=== PATIENT | female | born 1965 | race Caucasian/White ===

== ENCOUNTER → 2018-02-03 15:27 | Outpatient (CLI) | payer OTHER, SELFPAY ==
[2018-02-03 15:45] LABS: Hematocrit 41.1 % (37-47); Hemoglobin 13.9 g/dl (12.0-15.0); Mean Corp Hgb Conc 33.8 g/gl (32-36); Mean Corpuscular Hgb 29.5 pg (27.0-32.0); Mean Corpuscular Volume 87.3 fL (81-99); Mean Platelet Vol. 9.5 fl (6.2-12.0); Platelet Count 337 K/mm3 (150-450); RBC Distribution Width CV 13.3 % (11.6-14.6); RBC Distribution Width SD 42.5 fl (35.1-43.9); Red Blood Count 4.71 M/mm3 (4.2-5.4); Scan Indicated on CBC? Y/N NO; White Blood Count 6.9 K/mm3 (4.4-11.0)
[2018-02-03 16:10] LABS: ALB/GLOB Ratio 0.9 RATIO (0.9-2.4); AST(SGOT) 21 U/L (15-37); Alanine Aminotransfer ALT/SGPT 41 U/L (13-56); Albumin, Serum 3.7 g/dL (3.2-5.0); Alkaline Phosphatase 176 U/L (45-117); Anion Gap 8 (5-15); BUN 15 mg/dL (7-18); BUN/Creat Ratio 17.6 RATIO (10-20); Calcium,Total 9.2 mg/dL (8.5-10.1); Chloride 103 mmol/L (98-107); Creatinine, Serum 0.85 mg/dL (0.55-1.02); EST Glomerular Filtration Rate 75 mL/min (>60); Est Glom Filt Rate - Afr Amer 91 mL/min (>60); Globulin 3.9 g/dL (2.2-4.2); Glucose 136 mg/dL (74-106); Potassium 3.8 mmol/L (3.5-5.1); Protein, Total 7.6 g/dL (6.4-8.2); Sodium Level 138 mmol/L (136-145)
[2018-02-03 16:16] LABS: Hemoglobin A1c 6.1 % (4.2-6.3)
== END ==
PROVIDERS: Family Provider Internal Medicine; PCP Internal Medicine; Visit Provider Internal Medicine
DX: R73.01 Impaired fasting glucose (principal); Z79.899 Other long term (current) drug therapy
CPT/HCPCS: 80053; 83036; 85027

== ENCOUNTER → 2018-05-13 10:33 | Outpatient (CLI) | payer OTHER, SELFPAY ==
--- NOTE | 2018-05-13 12:15 | BRBX_PTH ---
PATIENT: JERE ELY LOC: [facility] U#:[id number] AGE/SX: 60/F ROOM: RE05/13/[address]: Dr. Sarita Spencer MD : 1965 BED: DIS: SPEC #: [id number] RECD: 05/13/18 13:22 STATUS: STELLA TYE #: [id number] OLI: 05/13/18 12:[address]: Sarita Spencer DEPT: SURGICAL PATHOLOGY RECD BY: Oswaldo Shearer ENTERED: 05/13/18 13:30 SP TYPE: BREAST BX OTHR DR: Dr. Carissa Lr MD Tissues: Left breast, NOS Procedures: Surgery Specimen Level IV HEADER OPERATION: Left stereotactic breast biopsy PRE-OP DIAGNOSIS: Left breast 1 o?clock posterior depth microcalcifications TISSUE SUBMITTED: Left breast core tissue ISCHEMIC TIME: 1 minute FIXATION TIME: 7 hours MICROSCOPIC DIAGNOSIS Left breast, 1 o?clock, posterior depth microcalcifications, stereotactic core biopsy: Fibrocystic changes and intraductal hyperplasia with focal atypia. Microcalcification. Negative for malignancy. YEN:andrews 05/14/18 COMMENT Correlation with clinical, radiologic findings and appropriate follow up are necessary. Case has been reviewed in consultation with Dr. Herrera who concurs with the above diagnosis. IDC:AM MICROSCOPIC DESCRIPTION Slides are reviewed. GROSS DESCRIPTION Received is one container labeled with the patient's name and not further designated. The specimen consists of multiple elongated fragments of maki-yellow fibroadipose tissue that in aggregate measure 2 x 0.5 x 0.3 cm. The entire specimen is submitted in two cassettes. / YEN:andrews 05/13/18 TC:5 [facility]: [id number]
--- NOTE | 2018-05-19 15:41 | PCM.OPRPT ---
Report of Operation Date of Procedure: 05/13/18 Pre-Operative Diagnosis: abnormal calcifications on left breast mammograms Post-Operative Diagnosis: same Surgery/Procedure Performed:: left stereotactic breast biopsy Description of Surgical Findings:: calcifications central upper outer quadrant of left breast Type of Anesthesia:: Local - 1% xylocaine Specimen's removed: left breast tissue Estimated Blood Loss (mL): minimal Fluids Replaced: none Description of Procedure: After informed consent was given, the patient was brought into the breast biopsy suite. Appropriate time out protocol was followed. She was then placed in the prone position on the stereotactic biopsy table. The patients left breast was then placed at the opening at the head of the table. A [place] compression mammogram was then obtained in the lateral view. The suspicious radiological lesion was then identified. Stereo pictures of the lesion were then taken for XYZ coordinates. The Mammotome biopsy stylus was then positioned where it would be entering into the patients breast. The skin at this site was then cleansed with a surgical skin preparation. The skin and subcutaneous tissues at this site were then infiltrated with 1% xylocaine. A small skin incision was made with an 11 blade scalpel. The biopsy stylus was then positioned into the patients breast at the proper coordinates of depth. Using the Mammotome vacuum-assist device, several core samples of breast tissue were obtained. A specimen mammogram was the obtained and revealed that the calcifications were within the specimen. A hemostatic marker clip was then placed into the biopsy cavity and a [place] film revealed that it was properly deployed. The patient was then placed in the supine position and pressure was applied to the breast until no active bleeding was noted. Steristrips were applied to reapproximate the skin. A unilateral mammogram in the CC and MLO view were then taken which revealed that the marker clip was in the same area as the previous suspicious lesion. The patient tolerated the procedure well and was discharged from the breast biopsy suite in good condition. - Complications none noted
== END ==
PROVIDERS: Family Provider Internal Medicine; PCP Internal Medicine; Visit Provider Surgery
DX: N60.92 Unspecified benign mammary dysplasia of left breast (principal); N60.12 Diffuse cystic mastopathy of left breast; M15.9 Polyosteoarthritis, unspecified; J30.9 Allergic rhinitis, unspecified; Z79.51 Long term (current) use of inhaled steroids; Z79.899 Other long term (current) drug therapy
CPT/HCPCS: 19081; 88305; A4648

== ENCOUNTER 2018-06-03 07:15 | Day surgery (SDC) | payer OTHER, SELFPAY ==
[2018-06-03] VITALS (12 sets, daily range): BP systolic 101–163; BP diastolic 61–109; PULSE 74–84; RESP 16–83; TEMP 36.1–36.6; O2SAT 18–96; BMI 49.8
--- NOTE | 2018-06-03 | BREAST_PTH ---
PATIENT: JERE ELY LOC: [facility] U#:[id number] AGE/SX: 53/F ROOM: RE06/03/[address]: Dr. Sarita Spencer MD : 1965 BED: DIS: 06/03/2018 SPEC #: [id number] RECD: 06/03/18 09:31 STATUS: STELLA TYE #: [id number] OLI: 06/03/18 00:[address]: Sarita Spencer DEPT: SURGICAL PATHOLOGY RECD BY: Rachell Ziegler ENTERED: 06/03/18 10:06 SP TYPE: BREAST OTHR DR: Dr. Carissa Lr MD Tissues: Left breast, NOS Procedures: Surgery Specimen Level V HEADER OPERATION: Left breast excisional biopsy via needle localization PRE-OP DIAGNOSIS: Left breast intraductal hyperplasia with atypia TISSUE SUBMITTED: Left breast mass MICROSCOPIC DIAGNOSIS Left breast mass, excisional biopsy via needle localization: Fibrocystic changes and intraductal hyperplasia without atypia. Changes consistent with previous biopsy site. Negative for malignancy. Frequent microcalcifications. SJ:rg 06/08/18 COMMENT Please make reference to previous specimen ([id number]) left breast, 1 o?clock, posterior depth microcalcifications, stereotactic core biopsy with diagnosis of fibrocystic changes and intraductal hyperplasia with focal atypia. Case has been reviewed in consultation with Dr. Herrera who concurs with the above diagnosis. IDC:AM MICROSCOPIC DESCRIPTION Slides are reviewed. GROSS DESCRIPTION Received fresh for OR consultation labeled with the patient's name is a specimen designated left breast mass. The specimen consists of an irregular fragment of maki-yellow wire-guided fibrofatty tissue measuring 8.5 x 5 x 2.9 cm and weighing 33.8 gm. The specimen is differentially inked as follows: anterior ? yellow, posterior ? black, superior ? blue, inferior ? green, lateral ? red and medial ? orange. Serial sections reveal a blood-filled biopsy cavity measuring 2.8 x 1.5 x 1.2 cm. The biopsy cavity is located 2 mm from its closest posterior and inferior margins. This information is conveyed to the surgeon intraoperatively. Lithographic Artist sections are submitted in ten cassettes as follows: 1 & 2 ? perpendicular inked margins, 3-6 ? biopsy cavity and surrounding tissue, 710 - artist's representative sections of breast parenchyma adjacent to and away from biopsy cavity. / AM:andrews 06/04/18 TC:5 CPT: 63822, [id number]
[2018-06-03] MEDS: Bupiv/Epi 0.5% Mpf 30 ML Vial INFILT (09:48)
--- NOTE | 2018-06-03 09:56 | PCM.IMDPSTOP ---
Immediate Post-Op Note Date of Procedure: 06/03/18 Primary Surgeon/Physician: Sarita Spencer validation scientist: NOT,DEFINED Pre-Operative Diagnosis: intraductal hyperplasia with atypia of the left breast Post-Operative Diagnosis: same, no evidence of cancer Surgery/Procedure Performed:: left breast excisional biopsy via wire localization Description of Surgical Findings:: dense hard mass, frozen section - fibrous tissue around biopsy cavity with hematoma Estimated Blood Loss: 30 ml Specimen's removed: left breast tissue Type of Anesthesia:: General ASA Class: ASA3 Severe Disease - Admit VTE Documentation VTE Present on Admission: Yes VTE Mechan Device Prophylaxis: SCD's
--- NOTE | 2018-06-03 09:57 | PCM.DC.BS ---
Discharge Diet: No Restrictions Discharge Activity: Return to Normal Activity, May not drive while taking narcotic pain medications. Lifting Restrictions: no lifting with left arm greater than 20 pounds for two weeks Call your doctor if your incision/area has: Continuous Slow Oozing, Foul Smelling Discharge Call your doctor if you observe: Fever of 101 or Higher Additional Dressing/Incision Instructions:: leave dressing in place. May get wet in shower. Do not soak - no tub baths/swimming Additional Instructions: Ice packs to area as tolerated for comfort wear supportive bra during day Allergies/Adverse Reactions: Allergies latex Allergy (Verified 05/27/18 09:11) Rash naproxen Allergy (Verified 05/27/18 09:11) Chest tightness topiramate [From Topamax] Allergy (Verified 05/27/18 09:11) Hives Medications to take at Discharge Albuterol IH (ProAir) [Proair Hfa (SP)Vent Pts] 2 puff INHALATION Q4H PRN PRN 11/12/14 Montelukast Sodium [Singulair] 10 mg PO DINNER 11/12/14 Sumatriptan Succinate [Imitrex] 25 mg PO .X1 PRN 11/12/14 Acetaminophen/Butalbital/Caffe [Fioricet] 1 - 2 tablet PO Q4H PRN PRN #20 tablet 05/21/17 Cetirizine HCl [Zyrtec] 10 mg PO DAILY 05/21/17 Ondansetron [Zofran Odt] 4 mg PO Q8H PRN PRN #10 tablet 05/21/17 Rizatriptan Benzoate [Maxalt] 10 mg PO Q2H PRN PRN 05/21/17 predniSONE tablet [PredniSONE] 20 mg PO DAILY PRN 05/21/17 Propranolol HCl [Inderal LA] 60 mg PO DAILY 06/11/17 Amitriptyline HCl 75 mg PO DAILY 05/27/18 Tizanidine HCl [Zanaflex] 4 mg PO DAILY 05/27/18 Hydrocodone/Acetaminophen [Durbin 5-325 Tablet] 1 ea PO Q6H PRN PRN 5 Days #15 tab 06/03/18 The following prescriptions were given: Hydrocodone/Acetaminophen [Durbin 5-325 Tablet] 1 ea PO Q6H PRN PRN 5 Days #15 tab PRN Reason: Pain Primary Care Physician: Carissa Lr MD [Primary Care Provider] - Please Follow Up With: Sarita Spencer MD - call When: to be seen in 7-10 days, please call for date and time, thank you
--- NOTE | 2018-06-03 10:01 | OP.PCM_ITS ---
Report of Operation Date of Procedure: 06/03/18 Pre-Operative Diagnosis: intraductal hyperplasia with atypia of the left breast Post-Operative Diagnosis: same, no evidence of cancer Surgery/Procedure Performed:: left breast excisional biopsy via wire localization Description of Surgical Findings:: dense hard mass, frozen section - fibrous tissue around biopsy cavity with hematoma receptionist telephone operator: NOT,DEFINED Type of Anesthesia:: General Anesthesiologist: Manuel Moreno Specimen's removed: left breast tissue Estimated Blood Loss (mL): 30 ml Fluids Replaced: 1600 ml RL Description of Procedure: After informed consent was given, the patient was brought into the Breast Stereotactic Radiology suite and placed in the prone position on the [place] stereotactic table. The patient?s left breast was placed in the opening at the head of the table. A felt hat pouncing operator hand compression mammogram was then obtained in the lateral view. The marker clip that was previously placed was identified. Stereo pictures of the lesion were then taken for XYZ coordinates. The Kopans needle was then positioned where it would be entering into the patient?s breast. The skin at this site was then cleansed with a surgical skin preparation. The skin and subcutaneous tissues at this site were then infiltrated with 1% xylocaine. The Kopans needle was then positioned into the patient?s breast at the proper coordinates of depth. A felt hat pouncing operator hand film was obtained which revealed the wire in proper position. The patient was then placed in the supine position and the wire was taped into place. A unilateral mammogram in the CC and MLO view were then taken for use in the OR. The patient tolerated this portion of the procedure well and was brought to the AC awaiting surgery in the OR. The patient was then brought to the Operating Room and placed on the operating table in the supine position. A wire had already been placed in the stereotactic biopsy room in the radiology department as described above. The left breast with the wire in placed was then prepped with a sterile surgical skin preparation and sterile surgical drapes were placed. The skin and subcutaneous tissues at the site of the breast lesion was then infiltrated with 1% xylocaine with epinephrine. A transverse skin incision was then made in the lower outer quadrant with a 15 blade scalpel and carried down through to the subcutaneous tissues. Hemostasis was controlled with electrocautery. The wire was then palpated out and brought into the wound from outside. The breast tissue surrounding the wire was then carefully palpated out and from the surrounding tissues using electrocautery. The breast tissue, once from the breast, was then forwarded to the radiology department, where a specimen mammogram revealed that the lesion was within the specimen. The breast tissue was then forwarded to pathology for analysis. Pathology revealed no evidence of cancer, there was a biopsy cavity filled with old blood clot. The wound cavity was carefully examined. No further suspicious tissue was palpated or visualized. Hemostasis was carefully controlled with electrocautery. The subdermal tissues were then approximated with vicryl suture. The incision was then reapproximated close using running monocryl suture. Cavilon and steristrips were then placed to reinforce the skin closure. A sterile dressing was then applied. The patient was then brought to the Recovery Room in stable condition. - Complications none noted - Admit VTE Documentation VTE Present on Admission: Yes VTE Mechan Device Prophylaxis: SCD's
[2018-06-03] MEDS: HYDROcodone Bitartrate/Apap 5/325 Tablet PO (12:37)
== END 2018-06-03 13:28 | disposition home or self-care (01) ==
LOC: SDC 07:18 → AC 07:18
PROVIDERS: Family Provider Internal Medicine; PCP Internal Medicine; Visit Provider Surgery
PROC: (CPT 19301; principal; 2018-06-03 08:15)
DX: N60.92 Unspecified benign mammary dysplasia of left breast (principal); N60.12 Diffuse cystic mastopathy of left breast; M15.9 Polyosteoarthritis, unspecified; G43.109 Migraine with aura, not intractable, without status migrainosus; J30.9 Allergic rhinitis, unspecified; K21.9 Gastro-esophageal reflux disease without esophagitis; Z79.899 Other long term (current) drug therapy; Z79.51 Long term (current) use of inhaled steroids; Z79.52 Long term (current) use of systemic steroids
CPT/HCPCS: 00400; 19125; 19281; 76098; 88305; 88307; J7050; J7120; J2405

== ENCOUNTER → 2018-12-24 13:50 | Outpatient (CLI) | payer OTHER, SELFPAY ==
--- NOTE | 2018-12-24 13:54 | US_ITS ---
STUDY: ULTRASOUND BREAST - LEFT REASON FOR EXAM: Female, 53 years old. LT BREAST FOLLOW UP S/P EXCISIONAL BX TECHNIQUE: Axial and longitudinal images of the LEFT breast were performed with a high resolution ultrasound transducer. COMPARISON: None. FINDINGS: LEFT Breast: There is a lesion #1 in the upper inner quadrant. The lesion measures 0.5 x 0.4 x 0.3 cm in size. Clock notation: 10 o'clock position. Distance from nipple: 2 cm. Posterior Enhancement: No. Posterior Shadowing: None. Margins: Sharp and jagged. Echogenicity: Anechoic. Compression effect on Shape: No change. US/Breast Limited Unilateral IMPRESSION: Probably benign lesion. Short-term ultrasound follow-up is recommended. ASSESSMENT CATEGORY: BIRADS Category 3: Probably Benign - Short-Interval Follow-up Suggested. A letter regarding these results will be sent to the patient by the facility within 30 days. Electronically Signed: Yuliana Vargas, at 16:43 EDT Tel , Service support ,
--- NOTE | 2018-12-24 13:54 | BI_ITS ---
MAMMOGRAPHY - UNILATERAL DIAGNOSTIC: LEFT BREAST REASON FOR EXAM: Female, 53 years old. LT DIAGNOSTIC 6 MO F/U POST EXC BX-INTRADUCTAL HYPERPLASIA WITHOUT ATYPIA 06-03-18, LOST 25#, PERTINENT HISTORY: NO FM HX , PREV MAMMS DONE [facility] 03-23-18 W/AV'S LT 04-21-18, LT STEREO BX HERE 05-12-18 TECHNIQUE: Digital unilateral breast ruthann (3D mammographic acquisition) in the CC and MLO projections. 2-D mediolateral oblique (MLO) and craniocaudad (CC) views of both breasts were obtained. CAD: Full Field Digital Mammography with Computer Added Detection was performed. COMPARISON: 05/24/2018 and 12/24/2018. FINDINGS: Breast Composition: The breasts are heterogeneously dense, which may obscure small masses. There are no dominant masses or suspicious calcifications. No other significant abnormalities are identified. BI/DIAG MAMM W/CAD, UNILAT IMPRESSION: Stable unilateral diagnostic mammogram. One year follow-up mammogram recommended. (A) ASSESSMENT CATEGORY: BIRADS Category 2: Benign. A letter regarding these results will be sent to the patient by the facility within 30 days. Approximately 10% of breast cancers are not detected by mammography. A normal mammogram should not delay biopsy of a clinically suspicious abnormality. Electronically Signed: Yuliana Vargas, at 16:39 EDT Tel , Service support ,
== END ==
PROVIDERS: Family Provider Internal Medicine; PCP Internal Medicine; Referring Provider Internal Medicine; Visit Provider Internal Medicine
DX: R92.8 Other abnormal and inconclusive findings on diagnostic imaging of breast (principal)
CPT/HCPCS: 76642; 77061; 77065; G0279

== ENCOUNTER → 2020-03-06 | Outpatient (CLI) | payer OTHER, SELFPAY ==
--- NOTE | 2020-03-06 10:41 | BI_ITS ---
MAMMOGRAPHY - BILATERAL SCREENING REASON FOR EXAM: Female, 54 years old. Routine annual screening examination. PERTINENT HISTORY: Prior left stereotactic and excisional breast biopsy. TECHNIQUE: Digital bilateral breast nathanael (3D mammographic acquisition) in the CC and MLO projections. 2-D mediolateral oblique (MLO) and craniocaudad (CC) views of both breasts were obtained. CAD: Full Field Digital Mammography with Computer Added Detection was performed. COMPARISON: Comparison is made with prior outside examination dated March 23, 2018. FINDINGS: Breast Composition: The breasts are heterogeneously dense, which may obscure small masses. There are no dominant masses or suspicious calcifications. Stable benign-appearing bilateral axillary lymph nodes. No other significant abnormalities are identified. There has been no significant change since the prior study. BI/SCREEN MAMM (CAD) W/NATHANAEL BILAT IMPRESSION: Stable bilateral screening mammogram. Yearly follow-up mammogram recommended. (A) ASSESSMENT CATEGORY: BIRADS Category 2: Benign. A letter regarding these results will be sent to the patient by the facility within 30 days. Approximately 10% of breast cancers are not detected by mammography. A normal mammogram should not delay biopsy of a clinically suspicious abnormality. [id number] Electronically Signed: Taye Umana, at 13:51 EDT , Service support ,
--- OUTSIDE RECORDS SUMMARY | 2020-07-22 06:22 | XMS RPT_ITS | CCD ---
:1965 External Reference #:[id number] Author Organization [facility] Care Team Providers Name Role Phone Maya Lr Primary Care Provider Allergies Reported Allergen Reaction(s) Severity Date of Onset Location Azithromycin Other: See Comments 08-24-2012 - [facility] ([id number]) colesevelstacy Other: See Comments 06-12-2018 - [facility] ([id number]) Environmental [facility] ([id number]) Naproxen 12-22-2008 - [facility] ([id number]) topiramate Rash 06-12-2015 - [facility] ([id number]) Medications Medication Name Sig Date Prescriber Location Albuterol albuterol HFA (PROAIR 03-30-2018 Marisabel ([facility]) [place] [facility] HFA) 90 mcg/actuation Marisabel ([facility]) [place] ([id number]) inhaler Indications: Wheeze , Allergic rhinitis, unspecified seasonality, unspecified trigger Inhale 2 Puffs as instructed every 4 hours as needed for Wheezing/Shortness of Breath. 1 Inhaler 2 03/30/2018 Active Comment: Inhale 2 Puffs as instructed every 4 hours as needed for Wheezing/Shortness of Breath. Amitriptyline amitriptyline (ELAVIL) 75 [facility] Provider C [facility] mg tablet Indications: Provider ([id number]) Migraine with aura and without status migrainosus, not intractable Take 75 mg by mouth daily at bedtime. 0 Active Comment: Take 75 mg by mouth daily at bedtime. Betamethasone betamethasone 02-13-2016 Aidan Lr [facility] dipropionate Aidan Lr ([id number]) (DIPROSONE) 0.05 % cream Indications: Candidal intertrigo Apply 1 application to affected area twice daily. As directed for rash near groin area (avoid right in crease) 30 g 0 02/13/2016 Active Comment: Apply 1 application to affec migel area twice daily. As directed for rash near groin area (avoid right in c rease) Cetirizine cetirizine (ZYRTEC) 10 12-15-2018 Aidan Lopes za [facility] mg tablet Take 1 D [place] ([id number]) tablet by mouth once daily. 0 12/15/2018 Active Comment: Take 1 tablet by mouth once daily. Clobetasol clobetasol (TEMOVATE) 12-15-2018 Aidan Juárez a [facility] 0.05 % ointment Apply Maya [place] (45166 ) selectively to red spots or possible psoriasis plaques on thighs to lower legs twice per day for up to 4 weeks or less as needed until clear and then try to stop or taper off to a bland emollient cream such as CeraVe cream or Cetaphil cream applied twice per day, including to other dry skin ar 15 g 2 12/15/2018 Active Comment: Apply selectively to red spo ts or possible psoriasis plaques on thighs to lower legs twice per day for up to 4 weeks or less as needed until clear and then try to stop or taper of f to a bland emollient cream such as CeraVe cream or Cetaphil cream appl ied twice per day, including to other dry skin ar Clotrimazole clotrimazole (LOTRIMIN, 02-13-2016 Aidan Montiel [facility] CLOTRIM) 1 % cream Aidan Lr ([id number] ) Indications: Candidal intertrigo Apply 1 application to affected area twice daily. To skin folds as needed for rash 30 g 0 02/13/2016 Active Comment: Apply 1 application to affec migel area twice daily. To skin folds as needed for rash Colestipol colestipol (COLESTID) 1 03-01-2019 Aidan Montiel [facility] gram tablet Indications: Aidan Lr ([id number]) Bile salt-induced diarrhea Take 1 tablet by mouth once daily. As directed 90 tablet 3 03/01/2019 Active Comment: Take 1 tablet by mouth once daily. As directed Desoximetasone desoximetasone 12-15-2018 [facility] % cream Aidan Lr ( 70645) Indications: Psoriasis Apply to the worst or most resistant spots of eczematous dermatitis rash selectively on open areas of arms, legs, trunk, and hands//feet bid (twice per day) until clear and then can stop or taper off as able and directed. AVOID face, eyes/eyelids, and deep fold areas. 30 g 3 12/15/2018 Active Comment: Apply to the worst or most r esistant spots of eczematous dermatitis rash selectively on open areas of arms, legs, trunk, and hands//feet bid (twice per day) until clear and then can stop or taper off as able and directed. AVOID face, eyes/eyelids, an d deep fold areas. dupilumab DUPIXENT 300 mg/2 mL 11-21-2019 [facility] Provider [facility] ([id number]) injection eletriptan eletriptan (RELPAX) 40 mg 01-12-[address] [facility] ([id number]) tablet Indications: Migraine with aura and without status migrainosus, not intractable take 1 tablet by oral route; if headache returns, may repeat dose after 2 hours. No more than two doses within a 24-hour period.. 11 01/12/2018 Active eletriptan (RELPAX) 20 mg tablet 12-08-2017 [facility] Provider [facility] ([id number]) Indications: Migraine with aura and without status migrainosus, not intractable take 1 tablet at onset of headache; if headache returns,may repeat dose after 2 hours. No more than 2 doses within a 24 hour period 5 12/08/2017 Active Comment: take 1 tablet at onset of he adache; if headache returns,may repeat dose after 2 hours. No more than 2 doses within a 24 hour period take 1 tablet by oral route; if headache returns, may repeat dose after 2 hours. No more than two dose s within a 24-hour period.. fluticasone fluticasone (FLONASE) 50 11-29-2019 Aidan Lr [facility] mcg/actuation nasal Aidan Lr ([id number]) spray Indications: Allergic rhinitis, unspecified seasonality, unspecified trigger Use 1 [place] in each nostril once daily. Rinse mouth after use. 1 Bottle 2 11/29/2019 Active Comment: Use 1 [place] in each nostril once daily. Rinse mouth after use. guaiFENesin guaiFENesin (MUCINEX) 10-19-2018 Kristan Gray [facility] 600 mg 12 hr tablet Kristan Gray ( [id number]) Indications: Bronchitis Take 2 tablets by mouth twice daily. 60 tablet 0 10/19/2018 Active Comment: Take 2 tablets by mouth twic e daily. hydrOXYzine hydrOXYzine HCl 01-28-2019 Aidan Lr [facility] (ATARAX) 25 mg tablet Aidan Lr ([id number]) Indications: Rash and other nonspecific skin eruption 1 tablet every 6 hours as needed, but may take 2 tablets at bedtime 50 tablet 0 01/28/2019 Active Comment: 1 tablet every 6 hours as ne eded, but may take 2 tablets at bedtime Magnesium Oxide magnesium oxide 01-06-2018 [facility] Provider [facility]cf [facility] (MAG-OX) 400 mg tablet Provider ([id number]) Indications: Migraine with aura and without status migrainosus, not intractable Take 1 tablet by mouth once daily. 11 01/06/2018 Active Comment: Take 1 tablet by mouth once daily. montelukast montelukast (SINGULAIR) 02-13-2020 Marisabel (Customer Engineer) Iqra kaur [facility] 10 mg tablet Take 1 Marisabel (Customer Engineer) [place] ([id number]) tablet by mouth daily at bedtime. 90 tablet 3 02/13/2020 Active Comment: Take 1 tablet by mouth daily at bedtime. Naphazoline / naphazoline-pheniramine eye [facility] Provider [facility] Pheniramine drops (VISINE-A) 0.025-0.3 % Provider ([id number]) ophthalmic solution 1 Drop every 4 hours as needed. 0 Active Comment: 1 Drop every 4 hours as need ed. Omeprazole omeprazole (PRILOSEC) 20 08-15-2016 [facility] mg capsule Indications: Aidan Lr ( 10572) Gastroesophageal reflux disease, esophagitis presence not specified Take 1 capsule by mouth daily before breakfast. 1/2 hr before meal. 30 capsule 1 08/15/2016 Active Comment: Take 1 capsule by mouth willian y before breakfast. 1/2 hr before meal. Ondansetron ondansetron orally 05-25-2017 Marisabel (Customer Engineer) [facility] disintegrating (ZOFRAN [place] Marisabel ([id number]) ODT) 4 mg disintegrating (Customer Engineer) [place] tablet Take 1 tablet by mouth every 8 hours as needed. 12 tablet 0 05/25/2017 Active Comment: Take 1 tablet by mouth every 8 hours as needed. Promethazine promethazine 01-12-[address] [facility] (PHENERGAN) 12.5 mg Provider ([id number]) tablet Indications: Migraine with aura and without status migrainosus, not intractable take 1-2 tablet by oral route twice daily as needed. 5 01/12/2018 Active Comment: take 1-[address] e twice daily as needed. Propranolol propranolol ER (INDERAL 01-06-2018 [facility] Provider [facility]cf [facility] [place]) 80 mg 24 hr capsule Provider ([id number]) Indications: Migraine with aura and without status migrainosus, not intractable take 1 capsule by oral route every day 11 01/06/2018 Active Comment: take 1 capsule by oral route every day rizatriptan rizatriptan (MAXALT) 10 12-15-2018 Aidan D Adeline C [facility] mg tablet Take 0.5-1 Aidan Maya Lr (441 [id number]) tablets by mouth as needed. Take at onset of migraine; repeat after 2 hours prn 6 tablet 2 12/15/2018 Active Comment: Take 0.5-1 tablets by mouth as needed. Take at onset of migraine; repeat after 2 hours prn tiZANidine tiZANidine HCl 2 mg capsule [facility] Provider [facility]cf [facility] Indications: Migraine with Provider ( [id number]) aura and without status migrainosus, not intractable Take 2 mg by mouth as needed. 0 Active Comment: Take 2 mg by mouth as needed . Problems Active Problems Category Problem Name Status Date Location Headache; including Migraine with aura Active 01-28-2010 - [facility] migraine (52206) Other nutritional; Morbid obesity Active 02-06-2013 - [facility] endocrine; and metabolic (44 195) disorders Other upper respiratory Allergic rhinitis Active [facility] disease (87422) Prolapse of female Midline cystocele Active 02-24-2012 - [facility] genital organs (94254) Past or Other Problems Category Problem Name Status Date Location Abdominal pain Abdominal pain Completed 11-11-2007 - [facility]inic (89885) Allergic reactions Vesicular eczema Completed 04-22-2011 - [facility] (09301) Other connective tissue Plantar fascial Completed 10-27-2008 - [facility] disease fibromatosis (57539) Other connective tissue Calcaneal spur Completed 08-24-2008 - [facility] disease (13219) Other gastrointestinal Non-infective Completed 02-11-2018 - [facility] disorders diarrhea (52594) Other inflammatory Itching of skin Completed 04-22-2011 - [facility] condition of skin (56560) Other injuries and Excoriation of skin Completed 04-22-2011 - [facility] conditions due to (67823) external causes Other skin disorders Fissure in skin Completed 04-22-2011 - [facility] (22497) Skin and subcutaneous Pyoderma Completed 04-22-2011 - [facility] tissue infections (83676) Sprains and strains Sprain of cruciate Completed 09-02-2005 [facility] ligament of knee (83509) Results Result Name Value Range Unit Interpretation Flag Date Location obsolete on 2020-02 OBSOLETE Refill (MIQ) Normal 02-13-2020 [facility] DULCE MARIA ALVAREZ ([id number]) 1965 [facility] Time Provider Department ([id number]) 02/13/20 AID[facility] LR MIQ During your visit today, we recorded the following informati on about you: Melody Linares Pss 02/13/2020 9:56 AM Signed Patient has been identified by name and date of : Yes Pending Prescriptions Disp Refills MONTELUKAST 10 MG TABLET 90 tablet 3 Sig: Take 1 tablet by mouth daily at bedtime. OSKAR: No RX INSTRUCTIONS: Patient aware RX escripted to mail away pharmacy. No n eed to notify patient. Melody Hadley LPN 02/13/2020 10:03 AM Signed Patient has been identified by name and date of : Yes Patient phones for refill(s): Pending Prescriptions Disp Refills MONTELUKAST 10 MG TABLET 90 tablet 3 Sig: Take 1 tablet by mouth daily at bedtime. OSKAR: No Date of last office visit in primary care: 11/29/2019 6 month follow-up scheduled: 05/29/2020 Last 2 Encounter Wt Readings: Date: Wt: 11/29/2019 138.3 kg (305 lb) 06/28/2019 134.3 kg (296 lb) Previous labs/tests for medication: Not applicable Please advise. Thank you. 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) ZPAK (AZITHROMYCIN) 08/24/2012 14 - Other: See Comments Comments: Not effective per pt Date Reviewed: 11/29/2019 Reviewed by: Francine North LPN - Fully Assessed Reason for Visit: Refill Request [94] Order(s):montelukast (SINGULAIR) 10 mg tabletTake 1 ta blet by mouth daily at bedtime.Disp: 90 tabletRfl: 3 Prescriptions as of 02/13/2020 Sig: MONTELUKAST 10 MG TABLET Take 1 tablet by mouth daily * DUPIXENT 300 MG/2 ML SUBCUTAN* FLUTICASONE PROPIONATE 50 MCG* Use 1 [place] in each nostril o * COLESTIPOL 1 GRAM TABLET Take 1 tablet by mouth once d* HYDROXYZINE HCL 25 MG TABLET 1 tablet every 6 hours as nee* DESOXIMETASONE 0.25 % TOPICAL* Apply to the worst or most re * CLOBETASOL 0.05 % TOPICAL OIN* Apply selectively to red spot * RIZATRIPTAN 10 MG TABLET Take 0.5-1 tablets by mouth a* CETIRIZINE 10 MG TABLET Take 1 tablet by mouth once d* GUAIFENESIN ER 600 MG TABLET,* Take 2 tablets by mouth twice * ALBUTEROL SULFATE HFA 90 MCG/* Inhale 2 Puffs as instructed * AMITRIPTYLINE 75 MG TABLET Take 75 mg by mouth daily at * TIZANIDINE 2 MG CAPSULE Take 2 mg by mouth as needed. PROPRANOLOL ER 80 MG CAPSULE,* take 1 capsule by oral route * MAGNESIUM OXIDE 400 MG (241.3* Take 1 tablet by mouth once d * ELETRIPTAN 20 MG TABLET take 1 tablet at onset of hea* ELETRIPTAN 40 MG TABLET take 1 tablet by oral route; * PROMETHAZINE 12.5 MG TABLET take 1-2 tablet by oral route* ONDANSETRON 4 MG DISINTEGRATI* Take 1 tablet by mouth every * NAPHAZOLINE 0.025 %-PHENIRAMI* 1 Drop every 4 hours as neede * OMEPRAZOLE 20 MG CAPSULE,FARRUKH* Take 1 capsule by mouth daily * CLOTRIMAZOLE 1 % TOPICAL CREAM Apply 1 application to affect * BETAMETHASONE DIPROPIONATE 0.* Apply 1 application to affect * Problem List As Of Date 02/13/2020 Noted Resolved SPRAIN CRUCIATE LIG KNEE [S83.509A] 09/02/2005 Allergic rhinitis [J30.9] ABDOMINAL PAIN OTHER SPEC SITE [R10.9] 11/11/2007 CALCANEAL SPUR [M77.30] 08/24/2008 PLANTAR Fasciitis, right [M72.2] 10/27/2008 Migraine with Aura [G43.109] 01/28/2010 Pompholyx eczema [L30.1] 04/22/2011 Hand dermatitis [L30.9] 04/22/2011 Pyoderma, unspecified [L08.0] 04/22/2011 Pruritus [L29.9] 04/22/2011 Excoriation [T14.8XXA] 04/22/2011 Cracking skin [L98.9] 04/22/2011 Contact dermatitis and other eczema, due to uns*04/22/2011 Cystocele, midline [N81.11] 02/24/2012 Morbid obesity due to excess calories (HCC)--BM*02/06/2013 Bile salt-induced diarrhea [K90.89] 02/11/2018 Prescriptions ordered this encounter Disp Refills Start End MONTELUKAST 10 MG TABLET 90 t* 3 02/13/2020 Route: ORAL Sig: Take 1 tablet by mouth daily at bedtime. Medications Discontinued During This Encounter montelukast (SINGULAIR) 10 mg tablet 90 t* 3 03/01/20192019 Route: ORAL Sig: Take 1 tablet by mouth daily at bedtime. Disc: Reason for discontinue is not on file. Encounter Status:Closed by MARISABEL GLORIA on 02/13/20 cnpn on 2019-12-22 CNPN Telephone (INTMWS) Normal 12-22-2019 [facility] DULCE MARIA Tavera ([id number]) 1965 [facility] Date Time Provider Department ([id number]) 12/22/19 10:20 AM MARISABEL ROBLES (CHANDU) INTMWS During your visit today, we recorded the following informati on about you: Marisabel Robles APRN.CHANDU 12/22/2019 11:08 AM Signed This Team Access Model visit is a phone encounter. It requir ed patient-provider interaction for the medical decision making as documented below. This patient encounter invol michael the screening or treatment of novel coronavirus infection (COVID-19). S: Dulce Maria Alvarez is a 54 year old female who presents today with sinus draiange, sinus pressure. She notes symptoms consistent with sinusitis, last experienc ed April 2019. For last few days she reports: Sinus pressure Bridge of nose, left eye - maxillary headache, dull mild no fever no ear pain, left ear fullness no sore throat. does have allergies, using all usual medications No color to sinus drainage color, does have PND. No sore throat OTC allergy injections 2 x per week, singular, flonase, cold an sinus Review of Systems: GENERAL: No weight loss, malaise or fever s. HEENT: see HPI RESPIRATORY: Negative for cough, hemoptysis, wheezing, COPD, dyspnea or shortness of breath The remainder of the review of systems is negative. O: GENERAL: This is a well sounding fema le, no coughing or shortness of breath noted on phone call. VITALS: LMP 11/01/2015 ALLERGIES Allergen Reactions - Environmental [Othe* nasal congestion, throat infections - Naprosyn [Naproxen] Chest pain - Topamax [Topiramate] Rash Possible allergic rash after on drug for a long period of ti me - Welchol [Colesevela* Other: See Comments dizziness and psoriasis (though did help with postcholecys tectomy syndrome) - Zpak [Azithromycin] Other: See Comments Not effective per pt Current Outpatient Medications Medication Sig - amoxicillin-clavulanic acid (AUGMENTIN) 875-12 5 mg per tablet Take 1 tablet by mouth twice daily for 7 days. take with food. - DUPIXENT 300 mg/2 mL injection - fluticasone (FLONASE) 50 mcg/actuation nasal spray Use 1 [place] in each nostril once daily. Rinse mouth after use. - montelukast (SINGULAIR) 10 mg tablet Take 1 tablet by mouth daily at bedtime. - colestipol (COLESTID) 1 gram tablet Take 1 tablet by yeni th once daily. As directed - hydrOXYzine HCl (ATARAX) 25 mg tablet 1 tablet every 6 hours as needed, but may take 2 tablets at bedtime - desoximetasone (TOPICORT) 0.25 % cream Apply t o the worst or most resistant spots of eczematous dermatitis rash selectively on ope n areas of arms, legs, trunk, and hands//feet bid (twice per day) until clear and then can stop or taper off as able and directed. AVOID face, eyes/eyelids, and deep fold areas. - clobetasol (TEMOVATE) 0.05 % ointment Apply selectively to red spots or possible psoriasis plaques on thighs to lower legs twi ce per day for up to 4 weeks or less as needed until clear and then try to stop or taper off to a bland emollient cream such as CeraVe cre am or Cetaphil cream applied twice per day, including to other dry skin ar - rizatriptan (MAXALT) 10 mg tablet Take 0.5-1 tablets by mouth as needed. Take at onset of migraine; repeat after 2 hours prn - cetirizine (ZYRTEC) 10 mg tablet Take 1 tablet by mouth on ce daily. - guaiFENesin (MUCINEX) 600 mg 12 hr tablet Take 2 tablets b y mouth twice daily. - albuterol HFA (PROAIR HFA) 90 mcg/actuation inhaler Inhale 2 Puffs as instructed every 4 hours as needed for Wheezing/Shortness of Breath. - amitriptyline (ELAVIL) 75 mg tablet Take 75 mg by mouth daily at bedtime. - tiZANidine HCl 2 mg capsule Take 2 mg by mouth as needed. - propranolol ER (INDERAL [place]) 80 mg 24 h r capsule take 1 capsule by oral route every day - magnesium oxide (MAG-OX) 400 mg tablet Take 1 tablet by mouth once daily. - eletriptan (RELPAX) 20 mg tablet take 1 tablet at onset of headache; if headache returns,may repeat dose after 2 hours. No more than 2 doses within a 24 hour period - eletriptan (RELPAX) 40 mg tablet take 1 tablet by oral r oute; if headache returns, may repeat dose aft er 2 hours. No more than two doses within a 24-hour period.. - promethazine (PHENERGAN) 12.5 mg tablet take 1 -2 tablet by oral route twice daily as needed. - ondansetron orally disintegrating (ZOFRAN ODT) 4 mg disi ntegrating tablet Take 1 tablet by mouth every 8 hours as needed. - naphazoline-pheniramine eye drops (VIS INE-A) 0.025-0.3 % ophthalmic solution 1 Drop every 4 hours as needed. - omeprazole (PRILOSEC) 20 mg capsule Take 1 capsule by mout h daily before breakfast. 1/2 hr before meal. - clotrimazole (LOTRIMIN, CLOTRIM) 1 % cream Apply 1 a pplication to affected area twice daily. To skin folds as needed for rash - betamethasone dipropionate (DIPROSONE) 0.05 % cream Apply 1 application to affected area twice daily. A s directed for rash near groin area (avoid right in crease) No current facility-administered medications for this visit. PAST MEDICAL HISTORY Diagnosis Date - Allergic rhinitis, cause unspecified - Cystocele, midline - Diverticulitis - Generalized osteoarthrosis, unspecified site - Migraine with Aura 01/28/2010 - Pain in thoracic spine - Plantar fascial fibromatosis A: Awake and Alert. Medical Screening Complete, no apparent respriatory distress. P: In my assessment there is no Emergency Medical Conditio n identified that needs immediate stabilization. no need for proceed to off-si te testing. ASSESSMENT/PLAN: 1. Acute non-recurrent maxillary sinusitis - ICD9: 461.0, IC D10: J01.00 - Will begin treatment with as per antibiotic as written, se e orders - Supportive care with plenty of fluids, rest, and analgesia prn. - Follow up i if symptoms persist or worsen. 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 take with food.Disp: 14 tabletRfl: 0 Prescriptions as of 12/22/2019 Sig: AMOXICILLIN 875 MG-POTASSIUM * Take 1 tablet by mouth twice * DUPIXENT 300 MG/2 ML SUBCUTAN* FLUTICASONE PROPIONATE 50 MCG* Use 1 [place] in each nostril o * MONTELUKAST 10 MG TABLET Take 1 tablet by mouth daily * COLESTIPOL 1 GRAM TABLET Take 1 tablet by mouth once d* HYDROXYZINE HCL 25 MG TABLET 1 tablet every 6 hours as nee* DESOXIMETASONE 0.25 % TOPICAL* Apply to the worst or most re * CLOBETASOL 0.05 % TOPICAL OIN* Apply selectively to red spot * RIZATRIPTAN 10 MG TABLET Take 0.5-1 tablets by mouth a* CETIRIZINE 10 MG TABLET Take 1 tablet by mouth once d* GUAIFENESIN ER 600 MG TABLET,* Take 2 tablets by mouth twice * ALBUTEROL SULFATE HFA 90 MCG/* Inhale 2 Puffs as instructed * AMITRIPTYLINE 75 MG TABLET Take 75 mg by mouth daily at * TIZANIDINE 2 MG CAPSULE Take 2 mg by mouth as needed. PROPRANOLOL ER 80 MG CAPSULE,* take 1 capsule by oral route * MAGNESIUM OXIDE 400 MG (241.3* Take 1 tablet by mouth once d * ELETRIPTAN 20 MG TABLET take 1 tablet at onset of hea* ELETRIPTAN 40 MG TABLET take 1 tablet by oral route; * PROMETHAZINE 12.5 MG TABLET take 1-2 tablet by oral route* ONDANSETRON 4 MG DISINTEGRATI* Take 1 tablet by mouth every * NAPHAZOLINE 0.025 %-PHENIRAMI* 1 Drop every 4 hours as neede * OMEPRAZOLE 20 MG CAPSULE,FARRUKH* Take 1 capsule by mouth daily * CLOTRIMAZOLE 1 % TOPICAL CREAM Apply 1 application to affect * BETAMETHASONE DIPROPIONATE 0.* Apply 1 application to affect * Problem List As Of Date 12/22/2019 Noted Resolved SPRAIN CRUCIATE LIG KNEE [S83.509A] 09/02/2005 Allergic rhinitis [J30.9] ABDOMINAL PAIN OTHER SPEC SITE [R10.9] 11/11/2007 CALCANEAL SPUR [M77.30] 08/24/2008 PLANTAR Fasciitis, right [M72.2] 10/27/2008 Migraine with Aura [G43.109] 01/28/2010 Pompholyx eczema [L30.1] 04/22/2011 Hand dermatitis [L30.9] 04/22/2011 Pyoderma, unspecified [L08.0] 04/22/2011 Pruritus [L29.9] 04/22/2011 Excoriation [T14.8XXA] 04/22/2011 Cracking skin [L98.9] 04/22/2011 Contact dermatitis and other eczema, due to uns*04/22/2011 Cystocele, midline [N81.11] 02/24/2012 Morbid obesity due to excess calories (HCC)--BM*02/06/2013 Bile salt-induced diarrhea [K90.89] 02/11/2018 Prescriptions ordered this encounter Disp Refills Start End AMOXICILLIN 875 MG-POTASSIUM CLAVULA* 14 t* 0 12/22/2019 Route: ORAL Sig: Take 1 tablet by mouth twice daily for 7 days. take wit h food. Encounter Status:Closed by MARISABEL GLORIA on 12/22/19 progress on 2019-11 PROGRESS HNO ID: [id number] Normal 11-29-2019 [facility] Author: Aidan Lr [place] ([id number]) Service: ? Author Type: Physician Type: Progress Notes Filed: 01/01/2020 4:45 PM Note Text: This note was created using Lendariter. Subjective Dulce Maria Alvarez is a 54 year old female. Patient presents with: Follow Up SUBJECTIVE: Dulce Maria Alvarez is a 54 year old year old lady here today for follow up appointment for review of medical conditions. Doing well. No migraines for 4 months now. Titrating down to 50 mg per neurologist. Dupixent cleared up her hands--just small patch on one knuck le on right hand. trillium [place]. PAST MEDICAL HISTORY Diagnosis Date - Allergic rhinitis, cause unspecified - Cystocele, midline - Diverticulitis - Generalized osteoarthrosis, unspecified site - Migraine with Aura 01/28/2010 - Pain in thoracic spine - Plantar fascial fibromatosis Current Outpatient Medications Medication Sig - montelukast (SINGULAIR) 10 mg tablet Take 1 tablet by mout h daily at bedtime. - colestipol (COLESTID) 1 gram tablet Take 1 tablet by mouth once daily. As directed - hydrOXYzine HCl (ATARAX) 25 mg tablet 1 tablet every 6 sarah rs as needed, but may take 2 tablets at bedtime - desoximetasone (TOPICORT) 0.25 % cream Apply to the worst or most resistant spots of eczematous dermatitis rash selectively on open areas of arms, legs, trunk, and hands//feet bid (twice per day) until clear and then can stop or taper off as able and directed. AVOID face, eyes/eyelids, and deep fold areas. - clobetasol (TEMOVATE) 0.05 % ointment Apply selectively to red spots or possible psoriasis plaques on thighs to lower legs twice per day for up to 4 weeks or less as needed until clear and then try to stop o r taper off to a bland emollient cream such as CeraVe cream or Cetaphil cre am applied twice per day, including to other dry skin ar - rizatriptan (MAXALT) 10 mg tablet Take 0.5-1 tablets by mo uth as needed. Take at onset of migraine; repeat after 2 hours prn - cetirizine (ZYRTEC) 10 mg tablet Take 1 tablet by mouth on ce daily. - guaiFENesin (MUCINEX) 600 mg 12 hr tablet Take 2 tablets b y mouth twice daily. - albuterol HFA (PROAIR HFA) 90 mcg/actuation inhaler Inhale 2 Puffs as instructed every 4 hours as needed for Wheezing/Shortness of Breath. - amitriptyline (ELAVIL) 75 mg tablet Take 75 mg by mouth da tere at bedtime. - tiZANidine HCl 2 mg capsule Take 2 mg by mouth as needed. - propranolol ER (INDERAL LA) 80 mg 24 hr capsule take 1 cap shamir by oral route every day - magnesium oxide (MAG-OX) 400 mg tablet Take 1 tablet by mo uth once daily. - eletriptan (RELPAX) 20 mg tablet take 1 tablet at onset of headache; if headache returns,may repeat dose after 2 hours. No more than 2 doses within a 24 hour period - eletriptan (RELPAX) 40 mg tablet take 1 tablet by oral rou te; if headache returns, may repeat dose after 2 hours. No more braydon n two doses within a 24-hour period.. - promethazine (PHENERGAN) 12.5 mg tablet take 1-2 tablet by oral route twice daily as needed. - fluticasone (FLONASE) 50 mcg/actuation nasal spray Use 1 S pray in each nostril once daily. Rinse mouth after use. - ondansetron orally disintegrating (ZOFRAN ODT) 4 mg disint egrating tablet Take 1 tablet by mouth every 8 hours as needed. - naphazoline-pheniramine eye drops (VISINE-A) 0.025-0.3 % o phthalmic solution 1 Drop every 4 hours as needed. - omeprazole (PRILOSEC) 20 mg capsule Take 1 capsule by mout h daily before breakfast. 1/2 hr before meal. - clotrimazole (LOTRIMIN, CLOTRIM) 1 % cream Apply 1 applica tion to affected area twice daily. To skin folds as needed for rash - betamethasone dipropionate (DIPROSONE) 0.05 % cream Apply 1 application to affected area twice daily. As directed for rash near groi n area (avoid right in crease) - DUPIXENT 300 mg/2 mL injection No current facility-administered medications for this visit. Review of Systems See HPI Objective BP 128/84 Pulse 88 Resp 20 Wt (!) 138.3 kg (305 lb) LMP 11/01/2015 BMI 48.44 kg/m? Last 5 Encounter BP Readings: Date: BP: 11/29/2019 128/84 06/28/2019 132/80 04/30/2019 108/70 12/15/2018 124/78 10/28/2018 112/84 Last 5 Encounter Wt Readings: Date: Wt: 11/29/2019 138.3 kg (305 lb) 06/28/2019 134.3 kg (296 lb) 04/30/2019 132 kg (291 lb) 12/15/2018 127 kg (280 lb) 10/28/2018 126.6 kg (279 lb) Physical Exam Constitutional: Appearance: Normal appearance. She is morbidly obese. HENT: Head: Normocephalic. Eyes: Conjunctiva/sclera: Conjunctivae normal. Cardiovascular: Rate and Rhythm: Normal rate and regular rhythm. Heart sounds: Normal heart sounds. Pulmonary: Effort: Pulmonary effort is normal. Breath sounds: Normal breath sounds. Skin: General: Skin is warm and dry. Neurological: General: No focal deficit present. Mental Status: She is alert and oriented to person, place, a nd time. Psychiatric: Mood and Affect: Mood normal. Behavior: Behavior normal. Thought Content: Thought content normal. Judgment: Judgment normal. Assessment and Plan Encounter Diagnosis ICD-10-CM 1. Migraine with aura and without status migrainosus, not in tractable G43.109 Following with neurologist. Doing much better. Titrating jose ramon n med per instructions. 2. Morbid obesity due to excess calories (HCC)--BMI over 40 E66.01 Needs to get on track with better diet and regular exercise. 3. Psoriasis L40.9 DUPIXENT 300 mg/2 mL injection Much improved on Dupixent 4. 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 Encounter for long-term current use of medication Z79.899 CBC COMP METABOLIC PANEL 6. Breast cancer screening by mammogram Z12.31 LISE SCREENING LISE SCREENING W NATHANAEL Above issues addressed with patient. Patient involved in shared decision making for management of medical issues. History and medications reviewed. Epic updated as needed Refills and/or prescriptions taken care of and meds adjusted as indicated after reviewed history, exam and labs. Health Maintenance reviewed. Updated record and/or ordered t ests as recorded. Encouraged on efforts at healthy diet and regular exercise a nd adequate sleep. The majority of the visit was spent counseling and/or coordi nating care for the patient. Zsmb-pd-irtx time was at least 15 minutes. Aidan Lr MD cnov on 2019-11-29 CNOV Office Visit (INTMWS) Normal 11-29-[address] [place] [address] Clinic DULCE MARIA ALVAREZ ([id number]) 1965 [facility] Date Time Provider Department ([id number]) 11/29/19 7:00 PM AIDAN LR INTMWS During your visit today, we recorded the following informati on about you: Pulse Respiration Blood pressure Weight 88/minute 20/minute 128/84 138.3 kg Aidan Lr MD 01/01/2020 4:45 PM Signed This note was created using NoteWriter. Subjective Dulce Maria Alvarez is a 54 year old female. Patient presents with: Follow Up SUBJECTIVE: Dulce Maria Alvarez is a 54 year old year old lady here today for follow up appointment for review of medical conditions. Doing well. No migraines for 4 months now. Titrating down to 50 mg per neurologist. Dupixent cleared up her hands--just small patch on one knuckle on right hand. trillium [place]. PAST MEDICAL HISTORY Diagnosis Date - Allergic rhinitis, cause unspecified - Cystocele, midline - Diverticulitis - Generalized osteoarthrosis, unspecified site - Migraine with Aura 01/28/2010 - Pain in thoracic spine - Plantar fascial fibromatosis Current Outpatient Medications Medication Sig - montelukast (SINGULAIR) 10 mg tablet Take 1 tablet by mouth daily at bedtime. - colestipol (COLESTID) 1 gram tablet Take 1 tablet by yeni th once daily. As directed - hydrOXYzine HCl (ATARAX) 25 mg tablet 1 tablet every 6 hours as needed, but may take 2 tablets at bedtime - desoximetasone (TOPICORT) 0.25 % cream Apply t o the worst or most resistant spots of eczematous dermatitis rash selectively on ope n areas of arms, legs, trunk, and hands//feet bid (twice per day) until clear and then can stop or taper off as able and directed. AVOID face, eyes/eyelids, and deep fold areas. - clobetasol (TEMOVATE) 0.05 % ointment Apply selectively to red spots or possible psoriasis plaques on thighs to lower legs twi ce per day for up to 4 weeks or less as needed until clear and then try to stop or taper off to a bland emollient cream such as CeraVe cre am or Cetaphil cream applied twice per day, including to other dry skin ar - rizatriptan (MAXALT) 10 mg tablet Take 0.5-1 tablets by mouth as needed. Take at onset of migraine; repeat after 2 hours prn - cetirizine (ZYRTEC) 10 mg tablet Take 1 tablet by mouth on ce daily. - guaiFENesin (MUCINEX) 600 mg 12 hr tablet Take 2 tablets b y mouth twice daily. - albuterol HFA (PROAIR HFA) 90 mcg/actuation inhaler Inhale 2 Puffs as instructed every 4 hours as needed for Wheezing/Shortness of Breath. - amitriptyline (ELAVIL) 75 mg tablet Take 75 mg by mouth daily at bedtime. - tiZANidine HCl 2 mg capsule Take 2 mg by mouth as needed. - propranolol ER (INDERAL LA) 80 mg 24 h r capsule take 1 capsule by oral route every day - magnesium oxide (MAG-OX) 400 mg tablet Take 1 tablet by mouth once daily. - eletriptan (RELPAX) 20 mg tablet take 1 tablet at onset of headache; if headache returns,may repeat dose after 2 hours. No more than 2 doses within a 24 hour period - eletriptan (RELPAX) 40 mg tablet take 1 tablet by oral r oute; if headache returns, may repeat dose aft er 2 hours. No more than two doses within a 24-hour period.. - promethazine (PHENERGAN) 12.5 mg tablet take 1 -2 tablet by oral route twice daily as needed. - fluticasone (FLONASE) 50 mcg/actuation nasal spray Use 1 S pray in each nostril once daily. Rinse mouth after use. - ondansetron orally disintegrating (ZOFRAN ODT) 4 mg disi ntegrating tablet Take 1 tablet by mouth every 8 hours as needed. - naphazoline-pheniramine eye drops (VIS INE-A) 0.025-0.3 % ophthalmic solution 1 Drop every 4 hours as needed. - omeprazole (PRILOSEC) 20 mg capsule Take 1 capsule by mout h daily before breakfast. 1/2 hr before meal. - clotrimazole (LOTRIMIN, CLOTRIM) 1 % cream Apply 1 a pplication to affected area twice daily. To skin folds as needed for rash - betamethasone dipropionate (DIPROSONE) 0.05 % cream Apply 1 application to affected area twice daily. A s directed for rash near groin area (avoid right in crease) - DUPIXENT 300 mg/2 mL injection No current facility-administered medications for this visit. Review of Systems See HPI Objective BP 128/84 Pulse 88 Resp 20 Wt (!) 138.3 kg (305 lb) LMP 11/01/2015 BMI 48.44 kg/m? Last 5 Encounter BP Readings: Date: BP: 11/29/2019 128/84 06/28/2019 132/80 04/30/2019 108/70 12/15/2018 124/78 10/28/2018 112/84 Last 5 Encounter Wt Readings: Date: Wt: 11/29/2019 138.3 kg (305 lb) 06/28/2019 134.3 kg (296 lb) 04/30/2019 132 kg (291 lb) 12/15/2018 127 kg (280 lb) 10/28/2018 126.6 kg (279 lb) Physical Exam Constitutional: Appearance: Normal appearance. She is morbidly obese. HENT: Head: Normocephalic. Eyes: Conjunctiva/sclera: Conjunctivae normal. Cardiovascular: Rate and Rhythm: Normal rate and regular rhythm. Heart sounds: Normal heart sounds. Pulmonary: Effort: Pulmonary effort is normal. Breath sounds: Normal breath sounds. Skin: General: Skin is warm and dry. Neurological: General: No focal deficit present. Mental Status: She is alert and oriented to person, place, a nd time. Psychiatric: Mood and Affect: Mood normal. Behavior: Behavior normal. Thought Content: Thought content normal. Judgment: Judgment normal. Assessment and Plan Encounter Diagnosis ICD-10-CM 1. Migraine with aura and without status migrain osus, not intractable G43.109 Following with neurologist. Doing much better. Titrating jos eramon n med per instructions. 2. Morbid obesity due to excess calories (HCC)--BMI over 40 E66.01 Needs to get on track with better diet and regular exercise. 3. Psoriasis L40.9 DUPIXENT 300 mg/2 mL injection Much improved on Dupixent 4. 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 Encounter for long-term current use of medication Z79.899 CBC COMP METABOLIC PANEL 6. Breast cancer screening by mammogram Z12.31 LISE SCREENING LISE SCREENING W NATHANAEL Above issues addressed with patient. Patient involved in shared decision making for managem ent of medical issues. History and medications reviewed. Epic updated as needed Refills and/or prescriptions taken care of and meds adjusted as indicated after reviewed history, exam and labs. Health Maintenance reviewed. Updated record and/ or ordered tests as recorded. Encouraged on efforts at healthy diet an d regular exercise and adequate sleep. The majority of the visit wa s spent counseling and/or coordinating care for the patient. Hrxv-pu-htsy time was at least 15 minutes. 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 Doing much better. Titrating down med per instructions. Other Visit Diagnoses:Morbid obesity due to excess calorie s (HCC)--BMI over 40 [E66.01] Comment:Needs to get on track with better diet and regular exercise. Psoriasis [L40.9] Comment:Much improved on Dupixent Allergic rhinitis, unspecified seasonality, unspecified trigger [J30.9] Comment:Continue Flonase Encounter for long-term current use of medication [Z79.899] Breast cancer screening by mammogram [Z12.31] Order(s):fluticasone (FLONASE) 50 mcg/ac tuation nasal sprayUse 1 [place] in each nostril once daily. Rinse mouth after use.Disp: 1 BottleRfl: 2 CBC [SQCBC] Order #: [id number] FUTURE COMP METABOLIC PANEL [SQCMP] Order #: [id number] FUTURE LISE SCREENING [[id number]] Order #: [id number] FUTURE LISE SCREENING W NATHANAEL [[id number]] Order #: [id number] FUTURE Prescriptions as of 11/29/2019 Sig: FLUTICASONE PROPIONATE 50 MCG* Use 1 [place] in each nostril o * MONTELUKAST 10 MG TABLET Take 1 tablet by mouth daily * COLESTIPOL 1 GRAM TABLET Take 1 tablet by mouth once d* HYDROXYZINE HCL 25 MG TABLET 1 tablet every 6 hours as nee* DESOXIMETASONE 0.25 % TOPICAL* Apply to the worst or most re * CLOBETASOL 0.05 % TOPICAL OIN* Apply selectively to red spot * RIZATRIPTAN 10 MG TABLET Take 0.5-1 tablets by mouth a* CETIRIZINE 10 MG TABLET Take 1 tablet by mouth once d* GUAIFENESIN ER 600 MG TABLET,* Take 2 tablets by mouth twice * ALBUTEROL SULFATE HFA 90 MCG/* Inhale 2 Puffs as instructed * AMITRIPTYLINE 75 MG TABLET Take 75 mg by mouth daily at * TIZANIDINE 2 MG CAPSULE Take 2 mg by mouth as needed. PROPRANOLOL ER 80 MG CAPSULE,* take 1 capsule by oral route * MAGNESIUM OXIDE 400 MG (241.3* Take 1 tablet by mouth once d * ELETRIPTAN 20 MG TABLET take 1 tablet at onset of hea* ELETRIPTAN 40 MG TABLET take 1 tablet by oral route; * PROMETHAZINE 12.5 MG TABLET take 1-2 tablet by oral route* ONDANSETRON 4 MG DISINTEGRATI* Take 1 tablet by mouth every * NAPHAZOLINE 0.025 %-PHENIRAMI* 1 Drop every 4 hours as neede * OMEPRAZOLE 20 MG CAPSULE,FARRUKH* Take 1 capsule by mouth daily * CLOTRIMAZOLE 1 % TOPICAL CREAM Apply 1 application to affect * BETAMETHASONE DIPROPIONATE 0.* Apply 1 application to affect * DUPIXENT 300 MG/2 ML SUBCUTAN* Medication notes this encounter AMITRIPTYLINE 75 MG TABLET >> Aidan Lr MD 11/29/2019 7:23 PM >> AIDAN LR MD ThuNov 29, 2019 7:23 PM Taking 50 mg now per neurologist; trying to titrate off grad ually TIZANIDINE 2 MG CAPSULE >> Aidan Lr MD 11/29/2019 7:24 PM >> AIDNA LR MD ThuNov 29, 2019 7:24 PM Taking nightly; helps prevent neck tightness that triggers m igraines FLUTICASONE PROPIONATE 50 MCG/ACTUATION NASAL SPRAY,SUSPENSI ON >> Aidan Lr MD 11/29/2019 7:24 PM >> AIDAN LR MD [facility] Nov 29, 2019 7:24 PM Uses daily Problem List As Of Date 11/29/2019 Noted Resolved SPRAIN CRUCIATE LIG KNEE [S83.509A] 09/02/2005 Allergic rhinitis [J30.9] ABDOMINAL PAIN OTHER SPEC SITE [R10.9] 11/11/2007 CALCANEAL SPUR [M77.30] 08/24/2008 PLANTAR Fasciitis, right [M72.2] 10/27/2008 Migraine with Aura [G43.109] 01/28/2010 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 Rinse mouth aft er use. Medications Discontinued During This Encounter fluticasone (FLONASE) 50 mcg/actuati* 1 Hi* 2 02/01/201811/29 Route: EACH NOSTRIL Sig: Use 1 [place] in each nostril once daily. Rinse mouth aft er use. Disc: Reason for discontinue is not on file. Disposition: Return in about 6 months (around 05/29/2020) for 6 months follow up. Follow-up and Disposition History Recorded Encounter Status:Closed by AIDAN LR MD on 01/01/20 progress on 2019-06 PROGRESS HNO ID: [id number] Normal 06-28-2019 [facility] Author: Susan Beltran [place] ([id number]) Service: ? Author Type: Nurse Practitioner Type: Progress Notes Filed: 06/28/2019 3:18 PM Note Text: Subjective HPI Dulce Maria Alvarez is a 54 year old female who presents with ecz osei flare of both hands the last few weeks. She was seeing a dermatologis t who recently left their practice. She usually is very well controlled wit h desoximetasone cream and clobetasol ointment, but says this is not working any longer. She also has psoriasis of her scalp which seems to be well controlled currently. Review of Systems Constitutional: Negative for chills, fever and malaise/fatig ue. Skin: Positive for itching and rash. BP 132/80 Pulse 80 Temp 36.7 ?C (98.1 ?F) (Tympanic) R dianelys 16 Wt 134.3 kg (296 lb) LMP 11/01/2015 BMI 47.01 kg/m? PAST MEDICAL HISTORY Diagnosis Date - Allergic rhinitis, cause unspecified - Cystocele, midline - Diverticulitis - Generalized osteoarthrosis, unspecified site - Migraine with Aura 01/28/2010 - Pain in thoracic spine - Plantar fascial fibromatosis PAST SURGICAL HISTORY Procedure Laterality Date - LIGATE FALLOPIAN TUBE Tubal ligation - PAST SURGICAL HISTORY OF 06/10/2011 Gall bladder - REPAIR ING HERNIA,5+Y/O,REDUCIBL 1972 Hernia repair, inguinal right ALLERGIES Environmental [Other]; Naprosyn [Naproxen]; Topama x [Topiramate]; Welchol [Colesevelam]; Zpak [Azithromycin] MEDICATIONS montelukast (SINGULAIR) 10 mg tablet Take 1 tablet by mouth daily at bedtime. colestipol (COLESTID) 1 gram tablet Take 1 tablet by mouth o nce daily. As directed hydrOXYzine HCl (ATARAX) 25 mg tablet 1 tablet every 6 hours as needed, but may take 2 tablets at bedtime desoximetasone (TOPICORT) 0.25 % cream Apply to the worst or most resistant spots of eczematous dermatitis rash selectively on open areas of arms, legs, trunk, and hands//feet bid (twice per day) until clear and then can stop or taper off as able and directed.AVOID face, eyes/eyelids, and deep fold areas. clobetasol (TEMOVATE) 0.05 % ointment Apply selectively to r ed spots or possible psoriasis plaques on thighs to lower legs twice per day for up to 4 weeks or less as needed until clear and then try to stop o r taper off to a bland emollient cream such as CeraVe cream or Cetaphil cre am applied twice per day, including to other dry skin ar rizatriptan (MAXALT) 10 mg tablet Take 0.5-1 tablets by mout h as needed. Take at onset of migraine; repeat after 2 hours prn cetirizine (ZYRTEC) 10 mg tablet Take 1 tablet by mouth once daily. guaiFENesin (MUCINEX) 600 mg 12 hr tablet Take 2 tablets by mouth twice daily. albuterol HFA (PROAIR HFA) 90 mcg/actuation inhaler Inhale 2 Puffs as instructed every 4 hours as needed for Wheezing/Shortness of Breath. amitriptyline (ELAVIL) 75 mg tablet Take 75 mg by mouth willian y at bedtime. tiZANidine HCl 2 mg capsule Take 2 mg by mouth as needed. propranolol ER (INDERAL LA) 80 mg 24 hr capsule take 1 capsu le by oral route every day magnesium oxide (MAG-OX) 400 mg tablet Take 1 tablet by mout h once daily. eletriptan (RELPAX) 20 mg tablet take 1 tablet at onset of h eadache; if headache returns,may repeat dose after 2 hours. No more than 2 doses within a 24 hour period eletriptan (RELPAX) 40 mg tablet take 1 tablet by oral route ; if headache returns, may repeat dose after 2 hours. No more than two dos es within a 24-hour period.. promethazine (PHENERGAN) 12.5 mg tablet take 1-2 tablet by o ral route twice daily as needed. fluticasone (FLONASE) 50 mcg/actuation nasal spray Use 1 Spr ay in each nostril once daily. Rinse mouth after use. ondansetron orally disintegrating (ZOFRAN ODT) 4 mg disinteg rating tablet Take 1 tablet by mouth every 8 hours as needed. naphazoline-pheniramine eye drops (VISINE-A) 0.025-0.3 % oph thalmic solution 1 Drop every 4 hours as needed. omeprazole (PRILOSEC) 20 mg capsule Take 1 capsule by mouth daily before breakfast. 1/2 hr before meal. clotrimazole (LOTRIMIN, CLOTRIM) 1 % cream Apply 1 applicati on to affected area twice daily. To skin folds as needed for rash betamethasone dipropionate (DIPROSONE) 0.05 % cream Apply 1 application to affected area twice daily. As directed for rash near groin a lorraine (avoid right in crease) FAMILY HISTORY Problem Relation Age of Onset - Emphysema Mother - Heart Mother HEART MURMUR/CHF - Hypertension Father - Stroke Father - Heart Father MA - Prostate Cancer Father prostate - COPD Father - other (macular degeneration) Father - other (Heat Stroke) Maternal Grandmother - Emphysema Paternal Grandmother - Cancer Daughter non hodgkins lympoma - Colon Cancer Maternal Uncle - Cancer Paternal Uncle THROAT - Heart Brother congenital - other (tumor) Sister hysterectomy- baseball size tumor Social History Tobacco Use - Smoking status: Never Smoker - Smokeless tobacco: Never Used Substance Use Topics - Alcohol use: No - Drug use: No Objective Physical Exam Constitutional: She is oriented to person, place, and time a nd well-developed, well-nourished, and in no distress. HENT: Head: Normocephalic and atraumatic. Eyes: Conjunctivae are normal. Cardiovascular: Normal rate, regular rhythm, normal heart so unds and intact distal pulses. Exam reveals no gallop and no friction rub. No murmur heard. Pulmonary/Chest: Effort normal and breath sounds normal. No respiratory distress. She has no wheezes. She has no rales. She exhibits no tenderness. Musculoskeletal: She exhibits no edema. Lymphadenopathy: She has no cervical adenopathy. Neurological: She is alert and oriented to person, place, an d time. Gait normal. Skin: Skin is warm and dry. She is not diaphoretic. BL palms dry, plaques with underlying erythema Psychiatric: Mood, memory, affect and judgment normal. ASSESSMENT/PLAN: 1. Eczema, unspecified type - ICD9: 692.9, ICD10: L30.9 ([facility] diagnosis) - discussed skin care of rash - follow up if symptoms persist or worsen. - continue usual regimen - PREDNISONE 10 MG TABLET - CONSULT TO DERMATOLOGY 2. Psoriasis - ICD9: 696.1, ICD10: L40.9 - CONSULT TO DERMATOLOGY All of the above discussed with the patient in detail. Lupe lazcano is in agreement with the above plan. Treatment and plan of care di scussed including course of treatment, possible medication side effe cts, and what to watch for in regards to worsening signs and symptoms. All questions addressed. Susan Beltran APRN.MARIELLE wong on 2019-06-28 CNOV Office Visit ([facility]) Normal 06-28-20 [place] REYESDULCE MARIA QUIJANO ([id number]) 1965 [place] Date Time Provider Department ([id number]) 06/28/19 2:45 PM SUSAN BELTRAN [facility] During your visit today, we recorded the following informati on about you: Temperature Pulse Respiration Blood pressure 98.1 degrees 80/minute 16/minute 132/80 Weight 134.3 kg 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 06/28/2019 3:18 PM Signed Subjective HPI Dulce Mariaenid Alvarez is a 54 year old female who prese [facility] with eczema flare of both hands the last few weeks. She was seeing a laborer [facility] who recently left their practice. She usually is very well control led with desoximetasone cream and clobetasol ointment, but says this i s not working any longer. She also has psoriasis of her scalp which seems to be well controlled cur rently. Review of Systems Constitutional: Negative for chills, fever and malaise/fatig ue. Skin: Positive for itching and rash. BP 132/80 Pulse 80 Temp 36.7 ?C (98.1 ?F) (Tympanic) R dianelys 16 Wt 134.3 kg (296 lb) LMP 11/01/2015 BMI 47.01 kg/m? PAST MEDICAL HISTORY Diagnosis Date - Allergic rhinitis, cause unspecified - Cystocele, midline - Diverticulitis - Generalized osteoarthrosis, unspecified site - Migraine with Aura 01/28/2010 - Pain in thoracic spine - Plantar fascial fibromatosis PAST SURGICAL HISTORY Procedure Laterality Date - LIGATE FALLOPIAN TUBE Tubal ligation - PAST SURGICAL HISTORY OF 06/10/2011 Gall bladder - REPAIR ING HERNIA,5+Y/O,REDUCIBL 1972 Hernia repair, inguinal right ALLERGIES Environmental [Other]; Naprosyn [Naproxen]; Topa max [Topiramate]; Welchol [Colesevelam]; Zpak [Azithromycin] MEDICATIONS montelukast (SINGULAIR) 10 mg tablet Take 1 tabl et by mouth daily at bedtime. colestipol (COLESTID) 1 gram tablet Take 1 tablet by mouth o nce daily. As directed hydrOXYzine HCl (ATARAX) 25 mg tablet 1 tablet every 6 hours as needed, but may take 2 tablets at bedtime desoximetasone (TOPICORT) 0.25 % cream Apply to the worst or most resistant spots of eczematous dermatitis rash selectively on ope n areas of arms, legs, trunk, and hands//feet bid (twice per day) until clear and then can stop or taper off as able and directed.AVOID face, eyes/ eyelids, and deep fold areas. clobetasol (TEMOVATE) 0.05 % ointment Apply selectively to r ed spots or possible psoriasis plaques on thighs to lower legs twi ce per day for up to 4 weeks or less as needed until clear and then try to stop or taper off to a bland emollient cream such as CeraVe cre am or Cetaphil cream applied twice per day, including to other dry skin ar rizatriptan (MAXALT) 10 mg tablet Take 0.5-1 tab lets by mouth as needed. Take at onset of migraine; repeat after 2 hours prn cetirizine (ZYRTEC) 10 mg tablet Take 1 tablet by mouth once daily. guaiFENesin (MUCINEX) 600 mg 12 hr table t Take 2 tablets by mouth twice daily. albuterol HFA (PROAIR HFA) 90 mcg/actuation inhaler Inhale 2 Puffs as instructed every 4 hours as needed for Wheezing/Shortness of Breath. amitriptyline (ELAVIL) 75 mg tablet Take 75 mg by mouth willian y at bedtime. tiZANidine HCl 2 mg capsule Take 2 mg by mouth as needed. propranolol ER (INDERAL LA) 80 mg 24 hr capsule take 1 capsule by oral route every day magnesium oxide (MAG-OX) 400 mg tablet Take 1 tablet by mout h once daily. eletriptan (RELPAX) 20 mg tablet take 1 tablet at onset of h eadache; if headache returns,may repeat dose after 2 hours. No more than 2 doses within a 24 hour period eletriptan (RELPAX) 40 mg tablet take 1 tablet by oral route ; if headache returns, may repeat dose aft er 2 hours. No more than two doses within a 24-hour period.. promethazine (PHENERGAN) 12.5 mg tablet take 1-2 tablet by oral route twice daily as needed. fluticasone (FLONASE) 50 mcg/actuation n vonnie spray Use 1 [place] in each nostril once daily. Rinse mouth after use. ondansetron orally disintegrating (ZOFRA N ODT) 4 mg disintegrating tablet Take 1 tablet by mouth every 8 hours as needed. naphazoline-pheniramine eye drops (VISIN E-A) 0.025-0.3 % ophthalmic solution 1 Drop every 4 hours as needed. omeprazole (PRILOSEC) 20 mg capsule Take 1 capsule by mouth daily before breakfast. 1/2 hr before meal. clotrimazole (LOTRIMIN, CLOT RIM) 1 % cream Apply 1 application to affected area twice daily. To skin folds as needed for rash betamethasone dipropionate (DIPROSONE) 0.05 % cream Apply 1 application to affected area twice daily. A s directed for rash near groin area (avoid right in crease) FAMILY HISTORY Problem Relation Age of Onset - Emphysema Mother - Heart Mother HEART MURMUR/CHF - Hypertension Father - Stroke Father - Heart Father MA - Prostate Cancer Father prostate - COPD Father - other (macular degeneration) Father - other (Heat Stroke) Maternal Grandmother - Emphysema Paternal Grandmother - Cancer Daughter non hodgkins lympoma - Colon Cancer Maternal Uncle - Cancer Paternal Uncle THROAT - Heart Brother congenital - other (tumor) Sister hysterectomy- baseball size tumor Social History Tobacco Use - Smoking status: Never Smoker - Smokeless tobacco: Never Used Substance Use Topics - Alcohol use: No - Drug use: No Objective Physical Exam Constitutional: She is oriented to perso n, place, and time and well-developed, well-nourished, and in no distress. HENT: Head: Normocephalic and atraumatic. Eyes: Conjunctivae are normal. Cardiovascular: Normal rate, regular rhythm, normal heart sounds and intact distal pulses. Exam reveals no gallop and no friction rub. No murmur heard. Pulmonary/Chest: Effort normal and breath sounds normal. No respiratory distress. She has no wheezes. She has no rales. She exhibi ts no tenderness. Musculoskeletal: She exhibits no edema. Lymphadenopathy: She has no cervical adenopathy. Neurological: She is alert and oriented to person, place, an d time. Gait normal. Skin: Skin is warm and dry. She is not diaphoretic. BL palms dry, plaques with underlying erythema Psychiatric: Mood, memory, affect and judgment normal. ASSESSMENT/PLAN: 1. Eczema, unspecified type - ICD9: 692.9, ICD10: L30.9 ([facility] diagnosis) - discussed skin care of rash - follow up if symptoms persist or worsen. - continue usual regimen - PREDNISONE 10 MG TABLET - CONSULT TO DERMATOLOGY 2. Psoriasis - ICD9: 696.1, ICD10: L40.9 - CONSULT TO DERMATOLOGY All of the above discussed with the juan c ent in detail. Patient is in agreement with the above plan. Treatment and plan of care discussed including course of treatment, possible medication side effects, and what to watch for in regards to worsening signs and symptoms. All questions addressed. 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) ZPAK (AZITHROMYCIN) 08/24/2012 14 - Other: See Comments Comments: Not effective per pt Date Reviewed: 06/28/2019 Reviewed by: Susan Beltran - Fully Assessed Reason for Visit: eczema flair up [Other] Cmt: worse last few weeks on both lehman nds Primary Visit Diagnosis:Eczema, unspecified type [L30.9] Other Visit Diagnosis:Psoriasis [L40.9] Order(s):predniSONE (DELTASONE) 10 mg ta bletTake 4 tabs daily for 3 days, then 2 tabs daily for 3 days, then 1 tab daily for 3 days with fo od.Disp: 21 tabletRfl: 0 CONSULT TO DERMATOLOGY [[id number]] Order #: [id number]: 1 Prescriptions as of 06/28/2019 Sig: MONTELUKAST 10 MG TABLET Take 1 tablet by mouth daily * COLESTIPOL 1 GRAM TABLET Take 1 tablet by mouth once d* HYDROXYZINE HCL 25 MG TABLET 1 tablet every 6 hours as nee* DESOXIMETASONE 0.25 % TOPICAL* Apply to the worst or most re * CLOBETASOL 0.05 % TOPICAL OIN* Apply selectively to red spot * RIZATRIPTAN 10 MG TABLET Take 0.5-1 tablets by mouth a* CETIRIZINE 10 MG TABLET Take 1 tablet by mouth once d* GUAIFENESIN ER 600 MG TABLET,* Take 2 tablets by mouth twice * ALBUTEROL SULFATE HFA 90 MCG/* Inhale 2 Puffs as instructed * AMITRIPTYLINE 75 MG TABLET Take 75 mg by mouth daily at * TIZANIDINE 2 MG CAPSULE Take 2 mg by mouth as needed. PROPRANOLOL ER 80 MG CAPSULE,* take 1 capsule by oral route * MAGNESIUM OXIDE 400 MG (241.3* Take 1 tablet by mouth once d * ELETRIPTAN 20 MG TABLET take 1 tablet at onset of hea* ELETRIPTAN 40 MG TABLET take 1 tablet by oral route; * PROMETHAZINE 12.5 MG TABLET take 1-2 tablet by oral route* FLUTICASONE PROPIONATE 50 MCG* Use 1 [place] in each nostril o * ONDANSETRON 4 MG DISINTEGRATI* Take 1 tablet by mouth every * NAPHAZOLINE 0.025 %-PHENIRAMI* 1 Drop every 4 hours as neede * OMEPRAZOLE 20 MG CAPSULE,FARRUKH* Take 1 capsule by mouth daily * CLOTRIMAZOLE 1 % TOPICAL CREAM Apply 1 application to affect * BETAMETHASONE DIPROPIONATE 0.* Apply 1 application to affect * PREDNISONE 10 MG TABLET Take 4 tabs daily for 3 days,* Problem List As Of Date 06/28/2019 Noted Resolved SPRAIN CRUCIATE LIG KNEE [S83.509A] INVALID FOR* Allergic rhinitis [J30.9] ABDOMINAL PAIN OTHER SPEC SITE [R10.9] INVALID FOR* CALCANEAL SPUR [M77.30] INVALID FOR* PLANTAR Fasciitis, right [M72.2] INVALID FOR* Migraine with Aura [G43.109] INVALID FOR* Pompholyx eczema [L30.1] INVALID FOR* Hand dermatitis [L30.9] INVALID FOR* Pyoderma, unspecified [L08.0] INVALID FOR* Pruritus [L29.9] INVALID FOR* Excoriation [T14.8XXA] INVALID FOR* Cracking skin [L98.9] INVALID FOR* Contact dermatitis and other eczema, due to uns*INVALID FOR* Cystocele, midline [N81.11] INVALID FOR* Morbid obesity due to excess calories (HCC)--BM*INVALID FOR* 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 Medications Discontinued During This Encounter guaifenesin(MUCINEX 600 MG TAB) 0 11/16/2008 06/28/2019 Class: Med Update Route: ORAL Sig: as necessary Disc: Course of therapy completed meclizine (ANTIVERT) 25 mg tab 30 t* 0 09/01/2016 06/28/2019 Route: ORAL Sig: Take 1 tablet by mouth every 6 hours as needed (dizzine ss). Disc: Course of therapy completed Encounter Status:Closed by SUSAN BELTRAN APRN.CNP on 06/28 progress on 2019-04 PROGRESS HNO ID: [id number] Normal 04-30-2019 [facility] Author: Susan Davis ([id number]) Service: ? Author Type: Nurse Practitioner Type: Progress Notes Filed: 04/30/2019 1:19 PM Note Text: Subjective HPI Dulce Maria Alvarez is a 54 year old female who presents with sin us and teeth pain for the last 2 weeks. She has tried ibuprofen sinus and benadryl at home. Singulair and Flonase daily as per typical regimen. Ta kes History of allergy and sinus issues. Receives allergy injections per [facility]. Has an ENT. Review of Systems Constitutional: Negative for chills, fever and malaise/fatig ue. HENT: Positive for congestion and sinus pain. Negative for e ar discharge, ear pain, hearing loss and sore throat. Left sided teeth pain, generalized Eyes: Positive for photophobia. Negative for discharge and r edness. Respiratory: Negative for cough, sputum production, shortnes s of breath and wheezing. Cardiovascular: Negative for chest pain. Musculoskeletal: Negative for joint pain and myalgias. Skin: Negative for itching and rash. Neurological: Positive for headaches. BP 108/70 (BP Site: Right Arm, BP Position: Sitting, BP Cuff Size: Large Adult) Pulse 80 Temp 37 ?C (98.6 ?F) (Left Tympanic) R dianelys 16 Wt 132 kg (291 lb) LMP 11/01/2015 SpO2 97% BMI 46.22 k g/m? PAST MEDICAL HISTORY Diagnosis Date - Allergic rhinitis, cause unspecified - Cystocele, midline - Diverticulitis - Generalized osteoarthrosis, unspecified site - Migraine with Aura 01/28/2010 - Pain in thoracic spine - Plantar fascial fibromatosis PAST SURGICAL HISTORY Procedure Laterality Date - LIGATE FALLOPIAN TUBE Tubal ligation - PAST SURGICAL HISTORY OF 06/10/2011 Gall bladder - REPAIR ING HERNIA,5+Y/O,REDUCIBL 1972 Hernia repair, inguinal right ALLERGIES Environmental [Other]; Naprosyn [Naproxen]; Topama x [Topiramate]; Welchol [Colesevelam]; Zpak [Azithromycin] MEDICATIONS montelukast (SINGULAIR) 10 mg tablet Take 1 tablet by mouth daily at bedtime. colestipol (COLESTID) 1 gram tablet Take 1 tablet by mouth o nce daily. As directed hydrOXYzine HCl (ATARAX) 25 mg tablet 1 tablet every 6 hours as needed, but may take 2 tablets at bedtime desoximetasone (TOPICORT) 0.25 % cream Apply to the worst or most resistant spots of eczematous dermatitis rash selectively on open areas of arms, legs, trunk, and hands//feet bid (twice per day) until clear and then can stop or taper off as able and directed.AVOID face, eyes/eyelids, and deep fold areas. clobetasol (TEMOVATE) 0.05 % ointment Apply selectively to r ed spots or possible psoriasis plaques on thighs to lower legs twice per day for up to 4 weeks or less as needed until clear and then try to stop o r taper off to a bland emollient cream such as CeraVe cream or Cetaphil cre am applied twice per day, including to other dry skin ar rizatriptan (MAXALT) 10 mg tablet Take 0.5-1 tablets by mout h as needed. Take at onset of migraine; repeat after 2 hours prn cetirizine (ZYRTEC) 10 mg tablet Take 1 tablet by mouth once daily. guaiFENesin (MUCINEX) 600 mg 12 hr tablet Take 2 tablets by mouth twice daily. albuterol HFA (PROAIR HFA) 90 mcg/actuation inhaler Inhale 2 Puffs as instructed every 4 hours as needed for Wheezing/Shortness of Breath. amitriptyline (ELAVIL) 75 mg tablet Take 75 mg by mouth willian y at bedtime. tiZANidine HCl 2 mg capsule Take 2 mg by mouth as needed. propranolol ER (INDERAL LA) 80 mg 24 hr capsule take 1 capsu le by oral route every day magnesium oxide (MAG-OX) 400 mg tablet Take 1 tablet by mout h once daily. eletriptan (RELPAX) 20 mg tablet take 1 tablet at onset of h eadache; if headache returns,may repeat dose after 2 hours. No more than 2 doses within a 24 hour period eletriptan (RELPAX) 40 mg tablet take 1 tablet by oral route ; if headache returns, may repeat dose after 2 hours. No more than two dos es within a 24-hour period.. promethazine (PHENERGAN) 12.5 mg tablet take 1-2 tablet by o ral route twice daily as needed. fluticasone (FLONASE) 50 mcg/actuation nasal spray Use 1 Spr ay in each nostril once daily. Rinse mouth after use. ondansetron orally disintegrating (ZOFRAN ODT) 4 mg disinteg rating tablet Take 1 tablet by mouth every 8 hours as needed. naphazoline-pheniramine eye drops (VISINE-A) 0.025-0.3 % oph thalmic solution 1 Drop every 4 hours as needed. meclizine (ANTIVERT) 25 mg tab Take 1 tablet by mouth every 6 hours as needed (dizziness). omeprazole (PRILOSEC) 20 mg capsule Take 1 capsule by mouth daily before breakfast. 1/2 hr before meal. clotrimazole (LOTRIMIN, CLOTRIM) 1 % cream Apply 1 applicati on to affected area twice daily. To skin folds as needed for rash betamethasone dipropionate (DIPROSONE) 0.05 % cream Apply 1 application to affected area twice daily. As directed for rash near groin a lorraine (avoid right in crease) guaifenesin(MUCINEX 600 MG TAB) as necessary benzonatate (TESSALON PERLE) 100 mg capsule Take 1 capsule b y mouth three times daily as needed. FAMILY HISTORY Problem Relation Age of Onset - Emphysema Mother - Heart Mother HEART MURMUR/CHF - Hypertension Father - Stroke Father - Heart Father MA - Prostate Cancer Father prostate - COPD Father - other (macular degeneration) Father - other (Heat Stroke) Maternal Grandmother - Emphysema Paternal Grandmother - Cancer Daughter non hodgkins lympoma - Colon Cancer Maternal Uncle - Cancer Paternal Uncle THROAT - Heart Brother congenital - other (tumor) Sister hysterectomy- baseball size tumor Social History Tobacco Use - Smoking status: Never Smoker - Smokeless tobacco: Never Used Substance Use Topics - Alcohol use: No - Drug use: No Objective Physical Exam Constitutional: She is oriented to person, place, and time a nd well-developed, well-nourished, and in no distress. HENT: Head: Normocephalic and atraumatic. Right Ear: There is swelling. No drainage. Tympanic membrane is bulging. Tympanic membrane is not erythematous. Left Ear: There is swelling. No drainage. Tympanic membrane is bulging. Tympanic membrane is not erythematous. Nose: Mucosal edema and rhinorrhea present. Right sinus exhi bits frontal sinus tenderness. Right sinus exhibits no maxillary sinus te nderness. Left sinus exhibits maxillary sinus tenderness and frontal sinus tenderness. Mouth/Throat: Mucous membranes are not pale, not dry and not cyanotic. No oropharyngeal exudate, posterior oropharyngeal edema or post erior oropharyngeal erythema. Eyes: Conjunctivae are normal. Cardiovascular: Normal rate, regular rhythm, normal heart so unds and intact distal pulses. Exam reveals no gallop and no friction rub. No murmur heard. Pulmonary/Chest: Effort normal and breath sounds normal. No respiratory distress. She has no wheezes. She has no rales. She exhibits no tenderness. Musculoskeletal: She exhibits no edema. Lymphadenopathy: She has no cervical adenopathy. Neurological: She is alert and oriented to person, place, an d time. Gait normal. Skin: Skin is warm and dry. She is not diaphoretic. Psychiatric: Mood, memory, affect and judgment normal. ASSESSMENT/PLAN: 1. Bacterial sinusitis - ICD9: 473.9, 041.9, ICD10: J32.9, B 96.89 - Supportive care with plenty of fluids, rest, and analgesia prn. - Follow up in one week if symptoms persist or worsen. - AMOXICILLIN 875 MG-POTASSIUM CLAVULANATE 125 MG TABLET - PREDNISONE 20 MG TABLET - continue current meds besides ibuprofen cold and sinus - if no improvement in 3-5 days, follow up with PCP and/or s pecialists Patient understands if he/she develops any shortness of gail th, chest pain, or persistent fever, they should be taken to the ER im mediately or call 911. All of the above discussed with the patient in detail. Lupe lazcano is in agreement with the above plan. Treatment and plan of care di scussed including course of treatment, possible medication side effe cts, and what to watch for in regards to worsening signs and symptoms. All questions addressed. Susan Beltran APRN.[facility] on 2019-04-30 CNOV Office Visit ([facility]) Normal 04-30-20 [place] DULCE MARIA Tavera ([id number]) 1965 [place] Date Time Provider Department ([id number]) 04/30/19 12:45 PM SUSAN BELTRAN [facility] During your visit today, we recorded the following informati on about you: Temperature Pulse Respiration Blood pressure 98.6 degrees 80/minute 16/minute 108/70 Weight 132 kg 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 04/30/2019 1:19 PM Signed Subjective HPI Dulce Maria Alvarez is a 54 year old female who prese [facility] with sinus and teeth pain for the last 2 weeks. She has tried ibuprofen sinus and jono dryl at home. Singulair and Flonase daily as per typical regimen. Ta floyds History of allergy and sinus issues. Receives allergy injections per patient. H as an ENT. Review of Systems Constitutional: Negative for chills, fever and malaise/fatig ue. HENT: Positive for congestion and sinus pain. Ne gative for ear discharge, ear pain, hearing loss and sore throat. Left sided teeth pain, generalized Eyes: Positive for photophobia. Negative for discharge and r edness. Respiratory: Negative for cough, sputum production, shortn ess of breath and wheezing. Cardiovascular: Negative for chest pain. Musculoskeletal: Negative for joint pain and myalgias. Skin: Negative for itching and rash. Neurological: Positive for headaches. BP 108/70 (BP Site: Right Ar m, BP Position: Sitting, BP Cuff Size: Large Adult) Pulse 80 Temp 37 ?C (98.6 ?F) (Left Tympanic) Resp 16 Wt 132 kg (291 lb) LMP 11/01/2015 SpO2 97% BMI 46.22 kg/m? PAST MEDICAL HISTORY Diagnosis Date - Allergic rhinitis, cause unspecified - Cystocele, midline - Diverticulitis - Generalized osteoarthrosis, unspecified site - Migraine with Aura 01/28/2010 - Pain in thoracic spine - Plantar fascial fibromatosis PAST SURGICAL HISTORY Procedure Laterality Date - LIGATE FALLOPIAN TUBE Tubal ligation - PAST SURGICAL HISTORY OF 06/10/2011 Gall bladder - REPAIR ING HERNIA,5+Y/O,REDUCIBL 1972 Hernia repair, inguinal right ALLERGIES Environmental [Other]; Naprosyn [Naproxen]; Topa max [Topiramate]; Welchol [Colesevelam]; Zpak [Azithromycin] MEDICATIONS montelukast (SINGULAIR) 10 mg tablet Take 1 tabl et by mouth daily at bedtime. colestipol (COLESTID) 1 gram tablet Take 1 tablet by mouth o nce daily. As directed hydrOXYzine HCl (ATARAX) 25 mg tablet 1 tablet every 6 hours as needed, but may take 2 tablets at bedtime desoximetasone (TOPICORT) 0.25 % cream Apply to the worst or most resistant spots of eczematous dermatitis rash selectively on ope n areas of arms, legs, trunk, and hands//feet bid (twice per day) until clear and then can stop or taper off as able and directed.AVOID face, eyes/ eyelids, and deep fold areas. clobetasol (TEMOVATE) 0.05 % ointment Apply selectively to r ed spots or possible psoriasis plaques on thighs to lower legs twi ce per day for up to 4 weeks or less as needed until clear and then try to stop or taper off to a bland emollient cream such as CeraVe cre am or Cetaphil cream applied twice per day, including to other dry skin ar rizatriptan (MAXALT) 10 mg tablet Take 0.5-1 tab lets by mouth as needed. Take at onset of migraine; repeat after 2 hours prn cetirizine (ZYRTEC) 10 mg tablet Take 1 tablet by mouth once daily. guaiFENesin (MUCINEX) 600 mg 12 hr table t Take 2 tablets by mouth twice daily. albuterol HFA (PROAIR HFA) 90 mcg/actuation inhaler Inhale 2 Puffs as instructed every 4 hours as needed for Wheezing/Shortness of Breath. amitriptyline (ELAVIL) 75 mg tablet Take 75 mg by mouth willian y at bedtime. tiZANidine HCl 2 mg capsule Take 2 mg by mouth as needed. propranolol ER (INDERAL LA) 80 mg 24 hr capsule take 1 capsule by oral route every day magnesium oxide (MAG-OX) 400 mg tablet Take 1 tablet by mout h once daily. eletriptan (RELPAX) 20 mg tablet take 1 tablet at onset of h eadache; if headache returns,may repeat dose after 2 hours. No more than 2 doses within a 24 hour period eletriptan (RELPAX) 40 mg tablet take 1 tablet by oral route ; if headache returns, may repeat dose aft er 2 hours. No more than two doses within a 24-hour period.. promethazine (PHENERGAN) 12.5 mg tablet take 1-2 tablet by oral route twice daily as needed. fluticasone (FLONASE) 50 mcg/actuation n vonnie spray Use 1 [place] in each nostril once daily. Rinse mouth after use. ondansetron orally disintegrating (ZOFRA N ODT) 4 mg disintegrating tablet Take 1 tablet by mouth every 8 hours as needed. naphazoline-pheniramine eye drops (VISIN E-A) 0.025-0.3 % ophthalmic solution 1 Drop every 4 hours as needed. meclizine (ANTIVERT) 25 mg tab Take 1 tablet by mouth every 6 hours as needed (dizziness). omeprazole (PRILOSEC) 20 mg capsule Take 1 capsule by mouth daily before breakfast. 1/2 hr before meal. clotrimazole (LOTRIMIN, CLOT RIM) 1 % cream Apply 1 application to affected area twice daily. To skin folds as needed for rash betamethasone dipropionate (DIPROSONE) 0.05 % cream Apply 1 application to affected area twice daily. A s directed for rash near groin area (avoid right in crease) guaifenesin(MUCINEX 600 MG TAB) as necessary benzonatate (TESSALON PERLE) 100 mg capsule Take 1 capsule by mouth three times daily as needed. FAMILY HISTORY Problem Relation Age of Onset - Emphysema Mother - Heart Mother HEART MURMUR/CHF - Hypertension Father - Stroke Father - Heart Father MA - Prostate Cancer Father prostate - COPD Father - other (macular degeneration) Father - other (Heat Stroke) Maternal Grandmother - Emphysema Paternal Grandmother - Cancer Daughter non hodgkins lympoma - Colon Cancer Maternal Uncle - Cancer Paternal Uncle THROAT - Heart Brother congenital - other (tumor) Sister hysterectomy- baseball size tumor Social History Tobacco Use - Smoking status: Never Smoker - Smokeless tobacco: Never Used Substance Use Topics - Alcohol use: No - Drug use: No Objective Physical Exam Constitutional: She is oriented to perso n, place, and time and well-developed, well-nourished, and in no distress. HENT: Head: Normocephalic and atraumatic. Right Ear: There is swelling. No drainage. Tympanic membrane is bulging. Tympanic membrane is not erythematous. Left Ear: There is swelling. No drainage. Tympanic membrane is bulging. Tympanic membrane is not erythematous. Nose: Mucosal edema and rhinorrhea prese nt. Right sinus exhibits frontal sinus tenderness. Right sinus exhibits no maxillary sinus tenderne ss. Left sinus exhibits maxillary sinus tenderness and frontal sinus tender ness. Mouth/Throat: Mucous membranes are not pale, not dry and not cyanotic. No oropharyngeal exudate, poste rior oropharyngeal edema or posterior oropharyngeal erythema. Eyes: Conjunctivae are normal. Cardiovascular: Normal rate, regular rhythm, normal heart sounds and intact distal pulses. Exam reveals no gallop and no friction rub. No murmur heard. Pulmonary/Chest: Effort normal and breath sounds normal. No respiratory distress. She has no wheezes. She has no rales. She exhibi ts no tenderness. Musculoskeletal: She exhibits no edema. Lymphadenopathy: She has no cervical adenopathy. Neurological: She is alert and oriented to person, place, an d time. Gait normal. Skin: Skin is warm and dry. She is not diaphoretic. Psychiatric: Mood, memory, affect and judgment normal. ASSESSMENT/PLAN: 1. Bacterial sinusitis - ICD9: 473.9, 041.9, ICD10: J32.9, B 96.89 - Supportive care with plenty of fluids, rest, and analgesia prn. - Follow up in one week if symptoms persist or worsen. - AMOXICILLIN 875 MG-POTASSIUM CLAVULANATE 125 MG TABLET - PREDNISONE 20 MG TABLET - continue current meds besides ibuprofen cold and sinus - if no improvement in 3-5 days, follow up with PCP and/or s pecialists Patient understands if he/she develops a ny shortness of breath, chest pain, or persistent fever, they should be taken to the ER immediately or call 911. All of the above discussed with the juan c ent in detail. Patient is in agreement with the above plan. Treatment and plan of care discussed including course of treatment, possible medication side effects, and what to watch for in regards to worsening signs and symptoms. All questions addressed. 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 Take daily with food.Disp: 10 tabletRfl: 0 Prescriptions as of 04/30/2019 Sig: MONTELUKAST 10 MG TABLET Take 1 tablet by mouth daily * COLESTIPOL 1 GRAM TABLET Take 1 tablet by mouth once d* HYDROXYZINE HCL 25 MG TABLET 1 tablet every 6 hours as nee* DESOXIMETASONE 0.25 % TOPICAL* Apply to the worst or most re * CLOBETASOL 0.05 % TOPICAL OIN* Apply selectively to red spot * RIZATRIPTAN 10 MG TABLET Take 0.5-1 tablets by mouth a* CETIRIZINE 10 MG TABLET Take 1 tablet by mouth once d* GUAIFENESIN ER 600 MG TABLET,* Take 2 tablets by mouth twice * ALBUTEROL SULFATE HFA 90 MCG/* Inhale 2 Puffs as instructed * AMITRIPTYLINE 75 MG TABLET Take 75 mg by mouth daily at * TIZANIDINE 2 MG CAPSULE Take 2 mg by mouth as needed. PROPRANOLOL ER 80 MG CAPSULE,* take 1 capsule by oral route * MAGNESIUM OXIDE 400 MG (241.3* Take 1 tablet by mouth once d * ELETRIPTAN 20 MG TABLET take 1 tablet at onset of hea* ELETRIPTAN 40 MG TABLET take 1 tablet by oral route; * PROMETHAZINE 12.5 MG TABLET take 1-2 tablet by oral route* FLUTICASONE PROPIONATE 50 MCG* Use 1 [place] in each nostril o * ONDANSETRON 4 MG DISINTEGRATI* Take 1 tablet by mouth every * NAPHAZOLINE 0.025 %-PHENIRAMI* 1 Drop every 4 hours as neede * MECLIZINE 25 MG TABLET Take 1 tablet by mouth every * OMEPRAZOLE 20 MG CAPSULE,FARRUKH* Take 1 capsule by mouth daily * CLOTRIMAZOLE 1 % TOPICAL CREAM Apply 1 application to affect * BETAMETHASONE DIPROPIONATE 0.* Apply 1 application to affect * MUCINEX 600 MG TABLET, EXTEND* as necessary AMOXICILLIN 875 MG-POTASSIUM * Take 1 tablet by mouth twice * PREDNISONE 20 MG TABLET Take 2 tablets by mouth once * Problem List As Of Date 04/30/2019 Noted Resolved SPRAIN CRUCIATE LIG KNEE [S83.509A] INVALID FOR* Allergic rhinitis [J30.9] ABDOMINAL PAIN OTHER SPEC SITE [R10.9] INVALID FOR* CALCANEAL SPUR [M77.30] INVALID FOR* PLANTAR Fasciitis, right [M72.2] INVALID FOR* Migraine with Aura [G43.109] INVALID FOR* Pompholyx eczema [L30.1] INVALID FOR* Hand dermatitis [L30.9] INVALID FOR* Pyoderma, unspecified [L08.0] INVALID FOR* Pruritus [L29.9] INVALID FOR* Excoriation [T14.8XXA] INVALID FOR* Cracking skin [L98.9] INVALID FOR* Contact dermatitis and other eczema, due to uns*INVALID FOR* Cystocele, midline [N81.11] INVALID FOR* Morbid obesity due to excess calories (HCC)--BM*INVALID FOR* Bile salt-induced diarrhea [K90.89] INVALID FOR* Prescriptions ordered this encounter Disp Refills Start End AMOXICILLIN 875 MG-POTASSIUM CLAVULA* 14 t* 0 04/30/201912/2018 Route: ORAL Sig: Take 1 tablet by mouth twice daily for 7 days. PREDNISONE 20 MG TABLET 10 t* 0 04/30/2019 05/05/2019 Route: ORAL Sig: Take 2 tablets by mouth once daily for 5 days. Take denise ly with food. Medications Discontinued During This Encounter benzonatate (TESSALON PERLE) 100 mg * 60 c* 0 10/19/201804/30 Route: ORAL Sig: Take 1 capsule by mouth three times daily as needed. Patient not taking: Reported on 04/30/2019 Disc: Course of therapy completed amoxicillin-clavulanic acid (AUGMENT* 14 t* 0 10/28/201804/30 Route: ORAL Sig: Take 1 tablet by mouth twice daily for 7 days. Disc: Reason for discontinue is not on file. predniSONE (DELTASONE) 20 mg tablet 10 t* 0 10/19/2018 019 Route: ORAL Sig: Take 2 tablets by mouth once daily for 5 days. Take denise ly with food. Disc: Reason for discontinue is not on file. Encounter Status:Closed by FREEDOM SIDDIQUI.SUSAN PALOMARES on 04/30 obsolete on 2019-02 OBSOLETE Refill (INTMWS) Normal 03-01-2019 Simeon lakhani [employer] DULCE MARIA ALVAREZ ([id number]) 1965 [facility] Time Provider Department ([id number]) 03/01/19 AIDAN LR INTMWS During your visit today, we recorded the following informati on about you: Evelia Reid [facility] 03/01/2019 2:06 PM Signed Patient has been identified by name and date of : Yes Pending Prescriptions Disp Refills MONTELUKAST 10 MG TABLET 30 tablet 5 Sig: Take 1 tablet by mouth daily at bedtime. OSKAR: No COLESTIPOL 1 GRAM TABLET 90 tablet 3 Sig: Take 1 tablet by mouth once daily. As directed OSKAR: No RX INSTRUCTIONS: Patient aware RX will be sent to pharmacy. No need to notify patient. 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 As directedDisp: 90 tabletRfl: 3 Prescriptions as of 03/01/2019 Sig: MONTELUKAST 10 MG TABLET Take 1 tablet by mouth daily * COLESTIPOL 1 GRAM TABLET Take 1 tablet by mouth once d* HYDROXYZINE HCL 25 MG TABLET 1 tablet every 6 hours as nee* DESOXIMETASONE 0.25 % TOPICAL* Apply to the worst or most re * CLOBETASOL 0.05 % TOPICAL OIN* Apply selectively to red spot * RIZATRIPTAN 10 MG TABLET Take 0.5-1 tablets by mouth a* CETIRIZINE 10 MG TABLET Take 1 tablet by mouth once d* GUAIFENESIN ER 600 MG TABLET,* Take 2 tablets by mouth twice * BENZONATATE 100 MG CAPSULE Take 1 capsule by mouth three* ALBUTEROL SULFATE HFA 90 MCG/* Inhale 2 Puffs as instructed * AMITRIPTYLINE 75 MG TABLET Take 75 mg by mouth daily at * TIZANIDINE 2 MG CAPSULE Take 2 mg by mouth as needed. PROPRANOLOL ER 80 MG CAPSULE,* take 1 capsule by oral route * MAGNESIUM OXIDE 400 MG (241.3* Take 1 tablet by mouth once d * ELETRIPTAN 20 MG TABLET take 1 tablet at onset of hea* ELETRIPTAN 40 MG TABLET take 1 tablet by oral route; * PROMETHAZINE 12.5 MG TABLET take 1-2 tablet by oral route* FLUTICASONE PROPIONATE 50 MCG* Use 1 [place] in each nostril o * ONDANSETRON 4 MG DISINTEGRATI* Take 1 tablet by mouth every * NAPHAZOLINE 0.025 %-PHENIRAMI* 1 Drop every 4 hours as neede * MECLIZINE 25 MG TABLET Take 1 tablet by mouth every * OMEPRAZOLE 20 MG CAPSULE,FARRUKH* Take 1 capsule by mouth daily * CLOTRIMAZOLE 1 % TOPICAL CREAM Apply 1 application to affect * BETAMETHASONE DIPROPIONATE 0.* Apply 1 application to affect * MUCINEX 600 MG TABLET, EXTEND* as necessary Problem List As Of Date 03/01/2019 Noted Resolved SPRAIN CRUCIATE LIG KNEE [S83.509A] INVALID FOR* Allergic rhinitis [J30.9] ABDOMINAL PAIN OTHER SPEC SITE [R10.9] INVALID FOR* CALCANEAL SPUR [M77.30] INVALID FOR* PLANTAR Fasciitis, right [M72.2] INVALID FOR* Migraine with Aura [G43.109] INVALID FOR* Pompholyx eczema [L30.1] INVALID FOR* Hand dermatitis [L30.9] INVALID FOR* Pyoderma, unspecified [L08.0] INVALID FOR* Pruritus [L29.9] INVALID FOR* Excoriation [T14.8XXA] INVALID FOR* Cracking skin [L98.9] INVALID FOR* Contact dermatitis and other eczema, due to uns*INVALID FOR* Cystocele, midline [N81.11] INVALID FOR* Morbid obesity due to excess calories (HCC)--BM*INVALID FOR* 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 COLESTIPOL 1 GRAM TABLET 90 t* 3 03/01/2019 Route: ORAL Sig: Take 1 tablet by mouth once daily. As directed Medications Discontinued During This Encounter montelukast (SINGULAIR) 10 mg tablet 30 t* 5 09/16/201803/01 Sig: TAKE 1 TABLET AT BEDTIME Disc: Reason for discontinue is not on file. colestipol (COLESTID) 1 gram tablet 90 t* 3 12/15/2018 019 Route: ORAL Sig: Take 1 tablet by mouth once daily. As directed Disc: Reason for discontinue is not on file. Encounter Status:Closed by MARISABEL GLORIA on 03/01/19 Encounters Date Type Reason Provider Location 05-18-2020 - Patient encounter External Provider [facility] 05-18-2020 procedure 05-18-2020 Results Only External Provider External-N [facility] Procedures Procedure Name Date Provider Location EXTERNAL IMAGING 05-18-2020 External Provider [facility] ([id number]) Mammography 03-06-2020 [facility] ([id number]) Plan of Treatment Plan Description Date Location DTAP,TDAP,TD (2 - Td) DTAP,TDAP,TD (2 - Td) 02-01-2023 [facility] ([id number]) HPV TESTING HPV TESTING 06-18-2021 [facility] ([id number]) PAP TESTING PAP TESTING 06-18-2021 [facility] ([id number]) MAMMOGRAM MAMMOGRAM 03-06-2021 [facility] ([id number]) LIPID SCREEN LIPID SCREEN 02-10-2021 [facility] ([id number]) DIABETES SCREEN DIABETES SCREEN 02-03-2021 [facility] ([id number]) HIV SCREENING HIV SCREENING 11-29-2020 [facility] ([id number]) Comment: Postponed from 1985 (D eclined at this time) INFLUENZA (#1) INFLUENZA (#1) 2020 [facility] ([id number]) FECAL OCCULT BLOOD FECAL OCCULT BLOOD 12-16-2019 [facility] ([id number]) SHINGRIX VACCINE (1 of SHINGRIX VACCINE (1 of 2) 2017 [facility] ([id number]) 2) ADULT PREVNAR-13 ADULT PREVNAR-13 1984 [facility] ([id number]) TWO PNEUMOVAX 5 YEARS TWO PNEUMOVAX 5 YEARS 1984 [facility] ([id number]) APART PRIOR TO AGE 65 APART PRIOR TO AGE 65 (#1) (#1) HEPATITIS C SCREENING HEPATITIS C SCREENING 1983 [facility] ([id number]) no information [facility] ([id number]) Immunizations Vaccine Notes Status Date Location Influenza Vaccine, influenza virus (completed) 08-05-2013 [facility] Split-Non Spec vaccine, unspecified (4419 5) formulation Influenza Vaccine, influenza virus (completed) 06-30-2011 [facility] Split-Non Spec vaccine, unspecified (4419 5) formulation Influenza Vaccine, influenza virus (completed) 06-25-2009 [facility] Whole vaccine, whole virus (91567) Influenza Seasonal Inj influenza, injectable, (completed) 06-12-20 18 [facility] Quadrivalent Age 3+ quadrivalent, contains (12070) preservative Influenza Seasonal Inj influenza, injectable, (completed) 08-15-20 16 [facility] Quadrivalent Age 3+ quadrivalent, contains (52467) preservative Influenza Seasonal Inj influenza, injectable, (completed) 08-15-20 15 [facility] Quadrivalent Age 3+ quadrivalent, contains (01390) preservative Influenza Seasonal Inj influenza, seasonal, (completed) 08-16-2019 [facility] Age 3+ injectable (03242) Tdap (Age 7+) tetanus toxoid, (completed) 02-01-2013 [facility] linic reduced diphtheria (12970) toxoid, and acellular pertussis vaccine, adsorbed Payers Payer Name Policy Number Location MMO [id number] [facility] (44 195) The following information is from the original human readable contentNo Payer Records Found Social History Type Social History Description Date Locat ion Tobacco smoking status Never smoker 06-28-2019 [facility] ([id number]) NHIS Tobacco use and exposure Never used 06-28-2019 [facility] ([id number]) Alcohol intake Current non-drinker of 06-28-2019 [facility] ([id number]) alcohol (finding) Sex Assigned At Not on file [facility] ([id number]) Exposure to SARS-CoV-2 Not sure [facility] (00143) (event) The following information is from the original human readable contentNo Social History Records Found Summary Purpose Family History No Family History Records Found Advance Directives No Advanced Directives Records Found Additional Source Comments FOR RECORDS PERTAINING TO PATIENTS WHO ARE OR HAVE BEEN ENROLLED IN A CHEMICAL DEPENDENCY/SUBSTANCE ABUSE PROGRAM, SOME INFORMATION MAY BE OMITTED. This clinical summary was aggregated from multiple sources. Caution should be exercised in using it in the provision of clinical care. This summary normalizes information from multiple sources, and as a consequence, information in this document may materially changethe coding, format and clinical context of patient data. In addition, data may be omittedin some cases. CLINICAL DECISIONS SHOULD BE BASED ON THE PRIMARY CLINICAL RECORDS. [facility] provides no warranty or guarantee of the accuracy or completeness of information in this document. UNRECOGNIZED CONTENT PROVIDED BELOW FOR UNRECOGNIZED SECTION INFORMATION SOURCE DATE CREATED AUTHOR AUTHOR'S ORGANIZATIO N 02/19/2020 [facility] Simeon lakhani UNRECOGNIZED CONTENT PROVIDED BELOW FOR UNRECOGNIZED SECTION Source Comments In the event this information is protected by the Federal Confidentiality of Alcohol and Drug Abuse Patient Records regulations: The Federal rules restrict any use of the information to criminally investigate or prosecute any alcohol or drug abuse patient.[facility]
== END | disposition home or self-care (01) ==
LOC: OPBI 10:40
PROVIDERS: PCP Internal Medicine; Visit Provider Internal Medicine
DX: Z12.31 Encounter for screening mammogram for malignant neoplasm of breast (principal)
CPT/HCPCS: 77063; 77067

== ENCOUNTER 2021-01-22 09:14 | Emergency (ER) | payer OTHER, SELFPAY ==
[2021-01-22 09:16] VITALS: BP 157/84; PULSE 82; RESP 16; TEMP 35.4; O2SAT 98; BMI 49.7
--- NOTE | 2021-01-22 09:41 | ED.DCSUM_ITS ---
History of Present Illness Chief Complaint: Abd Pain Informant: Patient Onset: Weeks Timing: Waxes and wanes Narrative: Sent in from primary care office secondary results of CT scan reporting diverticulitis with concerns of fistula into the bladder. Patient having waxing waning left lower quadrant abdominal pain for the past 2 weeks. She states she had urine symptoms a week ago called her PCP who called in Macrobid for which she finished the antibiotics. She had urine symptoms at that time with frequency. Denies dysuria. States symptoms are improving however still there. States pain is currently a 4 in the left lower quadrant. Reports diverticulitis 1 time in 2014 has not had a follow-up colonoscopy or colonoscopy in the past. History of cholecystectomy in 2010, states done as an outpatient electively. She has seen Dr. Spencer for breast biopsy 2017. She is seen Dr. Ramos in 2014 for similar. Denies any anticoagulation medications. Prior similar symptoms: Yes Past Medical History - Allergies and Home Meds Allergies/Adverse Reactions: Allergies colesevelam [From WelChol] Allergy (Verified 01/22/21 09:16) Other latex Allergy (Verified 01/22/21 09:15) Rash naproxen Allergy (Verified 01/22/21 09:15) Chest tightness topiramate [From Topamax] Allergy (Verified 01/22/21 09:15) Hives azithromycin Adverse Reaction (Verified 01/22/21 09:16) Other Primary Care Physician: Carissa Lr MD [Primary Care Provider] - Past Medical History: - - Migraine headache, asthma, GERD Surgical History: - - R inguinal hernia repair, cholecystectomy. Smoking Status: Never smoker - Family History Maternal Family History: Reports: Heart Disease Paternal Family History: Reports: Heart Disease, Hypertension Review of Systems General: Denies: Chills, Fever, Sweats Eyes: Denies: Visual changes - bilaterally, Diplopia ENT: Denies: Rhinorrhea, Sore throat Cardiovascular: Denies: Chest pain, Palpitations Respiratory: Denies: Dyspnea, Cough, Dyspnea on exertion Gastrointestinal: Reports: Abdominal pain. Denies: Nausea, Vomiting, Diarrhea, Melena, Hematochezia Genitourinary: Reports: Frequency. Denies: Dysuria, Hematuria Musculoskeletal: Denies: Back pain, Extremity Pain Skin: Denies: Rash, Wounds Neurological: Denies: Headache, Weakness, Numbness Physical Exam Vital Signs/Narrative: Vital Signs Temp Pulse Resp BP Pulse Ox 01/22/21 09:16 95.7 F L 82 16 157/84 H 98 Inital Vital Signs reviewed: Yes General: Well nourished, Well developed, No Acute Distress Head: Normocephalic, Atraumatic Eyes: Perrl, EOMI ENT: Moist mucous membranes, No rhinorrhea Neck: Supple, Nontender Cardiovascular: Regular rate, Regular rhythm, No murmurs Respiratory: No distress, CTA bilaterally, Chest nontender Abdomen: Soft, Nontender, Nondistended, Normal bowel sounds. Negative for: Guarding, Rebound tenderness Back: Nontender, Normal Inspection Extremities: Nontender, No edema Skin: Normal color, No rash Neurological: Alert, Oriented x3, Cranial nerves II-XII grossly intact, Normal Strength, Normal Sensation Psychological: Normal affect, Normal Mood Diagnostic/Tx/Re-eval Abnormal Lab Results 01/22/21 01/22/21 01/22/21 09:45 09:45 09:45 WBC 7.6 RBC 4.64 Hgb 13.4 Hct 41.3 MCV 89.0 MCH 28.9 MCHC 32.4 RDW Std Deviation 42.7 RDW Coeff of Mulu 13.1 Plt Count 340 MPV 9.4 Immature Gran % (Auto) 0.400 Neut % (Auto) 73.9 H Lymph % (Auto) 17.2 L [place] % (Auto) 6.4 Eos % (Auto) 1.6 Baso % (Auto) 0.5 Absolute Neuts (auto) 5.6 Absolute Lymphs (auto) 1.31 Nucleated RBC % 0 PT 12.4 INR 1.0 APTT 28.4 Sodium 138 Potassium 3.9 Chloride 103 Carbon Dioxide 30.0 Anion Gap 5 BUN 11 Creatinine 0.69 Estim Creat Clear Calc 88.27 Est GFR (MDRD) Af Amer 114 Est GFR (MDRD) Non-Af 94 BUN/Creatinine Ratio 15.9 Glucose 146 H Lactic Acid Calcium 9.1 Total Bilirubin 1.00 AST 34 ALT 57 H Alkaline Phosphatase 216 H Total Protein 7.8 Albumin 3.5 Globulin 4.3 H Albumin/Globulin Ratio 0.8 L Urine Color Urine Clarity Urine pH Ur Specific [place] Urine Protein Urine Glucose (UA) Urine Ketones Urine Occult Blood Urine Nitrite Urine Bilirubin Urine Urobilinogen Ur Leukocyte Esterase Urine RBC Urine WBC Ur Squamous Epith Cells Urine Bacteria Urine Mucus Blood Type Antibody Screen 01/22/21 01/22/21 01/22/21 09:45 09:45 11:00 WBC RBC Hgb Hct MCV MCH MCHC RDW Std Deviation RDW Coeff of Mulu Plt Count MPV Immature Gran % (Auto) Neut % (Auto) Lymph % (Auto) [place] % (Auto) Eos % (Auto) Baso % (Auto) Absolute Neuts (auto) Absolute Lymphs (auto) Nucleated RBC % PT INR APTT Sodium Potassium Chloride Carbon Dioxide Anion Gap BUN Creatinine Estim Creat Clear Calc Est GFR (MDRD) Af Amer Est GFR (MDRD) Non-Af BUN/Creatinine Ratio Glucose Lactic Acid 1.1 Calcium Total Bilirubin AST ALT Alkaline Phosphatase Total Protein Albumin Globulin Albumin/Globulin Ratio Urine Color Straw Urine Clarity Sl. Cloudy Urine pH 7.0 Ur Specific [place] 1.005 Urine Protein 15 H Urine Glucose (UA) Normal Urine Ketones Negative Urine Occult Blood 250 H Urine Nitrite Negative Urine Bilirubin Negative Urine Urobilinogen Normal Ur Leukocyte Esterase 500 H Urine RBC 0 SEEN Urine WBC 0-5 SEEN Ur Squamous Epith Cells 0 SEEN Urine Bacteria 0 SEEN Urine Mucus 0 SEEN Blood Type A NEGATIVE Antibody Screen NEGATIVE - Medical Decision Making Patient with a nonsurgical abdomen. Declines any pain medications. 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 Mild inflammatory changes seen adjacent to the fistula per radiology report. Patient vital signs stable. Knowing patient's infection, sepsis labs were ordered, she is covered with Zosyn. Labs returned with normal white count lactic acid normal. Urine did note leukocyte esterase however no other findings. Urine culture sent. Patient is followed by [facility] surgeons, she is seen Dr. Ramos in 2015 for diverticulitis. I evaluated records noted patient is admitted initially to the [facility] for diverticulitis with microperforation. She was admitted in the hospital, 2 days later reimagings noted concerns for perforation. There is no ICU beds available, therefore transferred up to [facility] for planned surgery, however patient reports there was no surgeries performed. She does not recall the surgeon. I d id speak with Dr. Ramos, discussed the findings, he states he does not manage fistulas therefore recommended transfer. Multiple call out to different facility locally, in [facility], there are no availabilities currently. Discussed with [facility] transfer line, colorectal surgeon Dr. Dean, discussed findings, he discussed likely treatment at this time would be IV antibiotics and future plans for surgery. Due to no availability since surgery not willing to follow at this facility he did accept the patient as a consult from medicine service. Patient accepted to medicine service under Dr. Dillon. Patient and family updated. Was told from transfer line may be delayed transport as they are also busy. Due to reported from surgery plan for IV antibiotics no surgery, patient requesting to eat, therefore regular diet was ordered pending transfer. 1728: Still awaiting bed for transport. Patient was given her 6-hour dose of Zosyn at 1648. ED Disposition - Plan for ED Patient: Disposition: Acute Care Hospital - Other Diagnosis: Diverticulitis large intestine, [place]-vesical fistula Referrals: Carissa Lr MD [Primary Care Provider] -
[2021-01-22] MEDS: 0.9% Normal Saline 1,000 ML 1000 ML IV (09:44)
[2021-01-22] MEDS: 0.9% Normal Saline 1,000 ML 150 ML IV ×2 (09:44→18:48)
[2021-01-22 09:59] LABS: Absolute Lymphocyte Count 1.31 X10^3/uL (0.83-4.51); Absolute Neutrophil Count 5.6 X10^3/uL (2.0-7.7); Basophil# 0.04 X10^3/uL; Basophil% 0.5 % (0-1); Eosinophil# 0.12 X10^3/uL; Eosinophils% 1.6 % (0-5); Hematocrit 41.3 % (37-47); Hemoglobin 13.4 g/dL (12.0-15.0); Lymphocyte # 1.31 X10^3/ul (0.83-4.51); Lymphocyte % 17.2 % (19-41); Mean Corp Hgb Conc 32.4 g/dL (32-36); Mean Corpuscular Hgb 28.9 pg (27.0-32.0); Mean Platelet Vol. 9.4 fl (6.2-12.0); Monocyte# 0.49 X10^3/uL; Monocyte% 6.4 % (0-10); NRBC Flagged by Analyzer 0 % (0-5); Neutrophil # 5.63 X10^3/uL (2.7-7.7); Neutrophil % 73.9 % (47-70); Platelet Count 340 K/mm3 (150-450); RBC Distribution Width CV 13.1 % (11.6-14.6); RBC Distribution Width SD 42.7 fl (35.1-43.9); Red Blood Count 4.64 M/mm3 (4.2-5.4); White Blood Count 7.6 K/mm3 (4.4-11.0)
[2021-01-22 10:07] LABS: Prothrombin Time (Protime)PT. 12.4 SECONDS (11.7-14.9)
[2021-01-22 10:08] LABS: Partial Thromboplast Time 28.4 Seconds (24.1-36.2)
[2021-01-22 10:14] LABS: ALB/GLOB Ratio 0.8 RATIO (0.9-2.4); AST(SGOT) 34 U/L (15-37); Alanine Aminotransfer ALT/SGPT 57 U/L (13-56); Albumin, Serum 3.5 g/dL (3.2-5.0); Alkaline Phosphatase 216 U/L (45-117); Anion Gap 5 (5-15); BUN 11 mg/dL (7-18); BUN/Creat Ratio 15.9 RATIO (10-20); Calcium,Total 9.1 mg/dL (8.5-10.1); Chloride 103 mmol/L (98-107); Creatinine, Serum 0.69 mg/dL (0.55-1.02); EST Glomerular Filtration Rate 94 mL/min (>60); Est Glom Filt Rate - Afr Amer 114 mL/min (>60); Estimated Creatinine Clearance 88.27 ml/min; Globulin 4.3 g/dL (2.2-4.2); Glucose 146 mg/dL (74-106); Potassium 3.9 mmol/L (3.5-5.1); Protein, Total 7.8 g/dL (6.4-8.2); Sodium Level 138 mmol/L (136-145)
[2021-01-22 10:23] LABS: Lactic Acid 1.1 mmol/L (0.4-1.9)
[2021-01-22 11:20] LABS: Bacteria 0 SEEN /hpf (None Seen); Mucous, Urine 0 SEEN /hpf (<or=2+); Red Blood Cells-Urine 0 SEEN /hpf (0-5); Squamous Epithelial Cells - UA 0 SEEN /hpf (5-10)
[2021-01-22 11:22] LABS: Color, Urine Straw (Yellow); Glucose, Dipstick Normal (Normal); Ketone-Dipstick Negative (Negative); Leukocyte Esterase-Dipstick 500 /ul (Negative); Nitrite-Dipstick Negative (Negative); Occult Blood-Urine 250 /ul (Negative); Protein-Dipstick 15 mg/dl (Negative); Specific Gravity, Urine 1.005 (1.002-1.030); Urine Bilirubin Dipstick Negative (Negative); Urine Clarity Sl. Cloudy (Clear); Urine Urobilinogen Normal (Normal)
[2021-01-22 11:27] LABS: White Blood Cells 0-5 SEEN /hpf (0-5)
[2021-01-22 11:54] VITALS: BP 156/98
--- NOTE | 2021-01-22 12:12 | ED.RN ---
[facility] said 25-30 people waiting on beds. per [facility] multiple days to get a bed at any facility
--- NOTE | 2021-01-22 12:39 | ED.RN ---
attempted to obtain bed at [facility], all [facility] facilites, [facility] and [facility].
[2021-01-22 14:40] VITALS: BP 152/86; PULSE 85; RESP 14; O2SAT 96
[2021-01-22 18:41] VITALS: BP 157/83; PULSE 73; RESP 16; O2SAT 96
[2021-01-22 20:33] VITALS: BP 164/83; PULSE 103; RESP 16; TEMP 37; O2SAT 96
[2021-01-22] MEDS: Ibuprofen 600 MG Tablet PO (21:26)
[2021-01-22 21:27] VITALS: TEMP 36.9
== END 2021-01-22 23:49 | disposition short-term general hospital (02) ==
PROVIDERS: Emergency Provider Emergency Medicine; PCP Internal Medicine
DX: K57.32 Diverticulitis of large intestine without perforation or abscess without bleeding (principal); N32.1 Vesicointestinal fistula; R35.0 Frequency of micturition
CPT/HCPCS: 80053; 81001; 83605; 85025; 85610; 85730; 86850; 86900; 86901; 87040; 87086; 87088; 87426; 96361; 96365; 96366; 99285; J7030; A4216

== ENCOUNTER 2021-02-05 08:27 | Emergency (ER) | payer OTHER, SELFPAY ==
[2021-02-05 08:28] VITALS: BP 146/96; PULSE 106; RESP 16; TEMP 36.2; O2SAT 94; BMI 47.2
--- NOTE | 2021-02-05 08:49 | ED.RN ---
Pt states I am not here for anything other then my tongue.. Pt refuses to allow nursing to place an IV. Dr. Dobbs in room.
--- NOTE | 2021-02-05 08:51 | RAD_ITS ---
STUDY: X-RAY CHEST REASON FOR EXAM: Female, 55 years old. Chest pain TECHNIQUE: Single AP portable view of the chest. COMPARISON: None. FINDINGS: EKG electrodes are seen. The lungs are clear and expanded. There is no demonstrated pleural abnormality. Normal size heart. Normal mediastinum and gogo. Normal visualized pulmonary arteries. There is atherosclerotic calcification of the aortic arch with tortuosity. Normal visualized thoracic spine. Normal visualized ribs, clavicles, and shoulders. There is no demonstrated abnormality of the visualized soft tissue structures of the upper abdomen. RAD/Chest 1 View (Portable) IMPRESSION: Normal x-ray examination of the chest. Electronically Signed: Taye Umana MD at 9:36 EDT , Service support ,
--- NOTE | 2021-02-05 08:51 | EKG12_ITS ---
Test Reason : CP Blood Pressure : / mmHG Vent. Rate : 102 BPM Atrial Rate : 102 BPM P-R Int : 192 ms QRS Dur : 090 ms QT Int : 352 ms P-R-T Axes : 039 -51 030 degrees QTc Int : 458 ms Sinus tachycardia Left anterior fascicular block Poor R wave progression Abnormal ECG Confirmed by BASSAM LOZANO, MELANY ([id number]), editor newspaper MARISOL TREADWELL ([id number]) on 02/06/2021 9:06:04 AM Referred By: RAZ Confirmed By:MELANY BANEGAS MD
--- NOTE | 2021-02-05 08:52 | ED.VIS.CHEST ---
HPI History of Present Illness Chief Complaint: Chest Pain Informant: patient Onset/Context/Timing Onset: Yesterday Activity at onset: gradual Timing: Continuous Quality: Positive for Pressure Location: Substernal Worsened By: Breathing Relieved By: Nothing Associated Symptoms: Negative for Nausea, Vomiting, Diaphoresis, Dyspnea, Cough, Fever, Lightheadedness, Acid Reflux and Palpitations Narrative Narrative: Patient presents with chest pain the began yesterday evening. Patient states it started in her throat and neck and now has progressed into her upper chest. Patient describes as a pressure. Patient states it has been constant. Patient states it is worse with deep breathing and with laying on her side. Patient states nothing seems to help with the pain. Patient denies any nausea or vomiting. Patient denies any diaphoresis. Patient denies any shortness of breath or cough. Patient denies any fevers or chills. Patient has been on Cipro and Flagyl for diverticulitis. Patient states she also noted some white coating on her tongue. Patient believes she has thrush due to the antibiotics. CVD Risk Factors: Negative for Hypertension, Diabetes, Hypercholesterolemia, Family History 1' </=55 and Smoking PE Risk Factors: Negative for Recent Travel/Surgery, Recent Immobilization, Prior DVT or PE, Cancer and OCP + Smoking + >/=35 PFSH PFSH Medical History (Updated 02/05/21 @ 10:[address] Manuel Dobbs, DO) Diverticulitis Home Medications albuterol sulfate [Proair Hfa (SP)Vent Pts] 2 puff INHALATION Q4H PRN PRN 11/12/14 [History Last Taken Unknown] montelukast [Singulair] 10 mg PO DINNER 11/12/14 [History Last Taken Unknown] sumatriptan succinate [Imitrex] 25 mg PO .X1 PRN 11/12/14 [History Last Taken Unknown] qihsttmahr-pslxmrrvvhkqr-fxie 1 - 2 tab PO Q4H PRN PRN #20 tab 05/21/17 [Rx Last Taken Unknown] cetirizine [Zyrtec] 10 mg PO DAILY 05/21/17 [History Last Taken Unknown] ondansetron 4 mg PO Q8H PRN PRN #10 tab 05/21/17 [Rx Last Taken Unknown] prednisone 20 mg PO DAILY PRN 05/21/17 [History Last Taken Unknown] rizatriptan 10 mg PO Q2H PRN PRN 05/21/17 [History Last Taken Unknown] propranolol 60 mg PO DAILY 06/11/17 [History Last Taken Unknown] amitriptyline 75 mg PO DAILY 05/27/18 [History Last Taken Unknown] tizanidine 4 mg PO DAILY 05/27/18 [History Last Taken Unknown] hydrocodone-acetaminophen 1 ea PO Q6H PRN PRN 5 Days #15 tab 06/03/18 [Rx Last Taken Unknown] clotrimazole See Rx Instructions .ROUTE .COMPLEX 14 Days #70 tab 02/05/21 [Rx Last Taken Unknown] Allergy/AdvReac Type Severity Reaction Status Date / Time colesevelam [From WelChol] Allergy Other Verified 02/05/21 08:31 latex Allergy Rash Verified 02/05/21 08:31 naproxen Allergy Chest Verified 02/05/21 08:31 tightness topiramate [From Topamax] Allergy Hives Verified 02/05/21 08:31 azithromycin AdvReac Other Verified 02/05/21 08:31 Surgical History (Updated 02/05/21 @ 08:[address] Manuel Dobbs DO) History of breast biopsy History of cholecystectomy History of herniorrhaphy History of tubal ligation Social History Smoking Status: Never smoker ROS ROS ED Constitutional Constitutional ED: Denies chills or fever(s) Eyes Eyes: Denies blurry vision or change in vision ENT ENT ED: Reports sore throat and other Details: Possible thrush ; Denies rhinorrhea Cardiovascular Cardiovascular: Reports chest pain; Denies palpitations Respiratory/Chest Respiratory/Chest: Denies cough or dyspnea Gastrointestinal Gastrointestinal: Denies nausea or vomiting Genitourinary Genitourinary ED: Denies dysuria or hematuria Musculoskeletal Musculoskeletal: Denies back pain or neck pain Integumentary Denies abscess or rash Neurologic Neurologic: Reports headache(s); Denies weakness Allergic/Immunologic Allergic/Immunologic ED: Denies mouth swelling or urticaria EXAM Physical Exam Const Vital Signs: 02/05/21 08:28 02/05/21 08:42 02/05/21 09:25 Temperature 97.1 F L Temperature Source Temporal Pulse Rate 106 H 90 Respiratory Rate 16 16 Respiratory Effort Normal Blood Pressure 146/96 H 153/92 H Blood Pressure Mean 112 112 Pulse Ox 94 95 Oxygen Delivery Method Room Air Room Air Positive well nourished, well developed and obese General Appearance ED: well developed Nutritional Appearance: obese HEENT Reports moist mucous membranes HEENT Narrative: There is a white coating on the tongue. Neck supple and no JVD Resp normal respiratory effort and clear to auscultation bilaterally Effort and Inspection: respiratory distress Cardio regular rate and regular rhythm GI normal to inspection, nondistended, normoactive bowel sounds, soft to palpation and non-tender Neuro oriented x3, CN's II-XII intact bilaterally and no sensory deficits noted Sensorium / Orientation: awake and alert Motor Exam: strength 5/5 throughout Heart Score History: Slightly/Non-Suspicious ECG: Normal Age: >45 - <65 years Risk Factors: No Risk Factors Troponin: </= Normal Limit Score: 1 MDM MDM MDM Narrative Medical decision making narrative: EKG showed sinus tachycardia with a rate of 102. There are no acute ST or T wave changes. This was interpreted by myself. Portable 1 view chest x-ray was obtained. On my interpretation, lung whitley are clear. There is normal cardiac silhouette. Bony thorax is normal. There is no acute process noted. Radiologist also interpreted the x-ray and agrees. CBC, basic metabolic profile, troponin were all normal. Patient has a HEART score of 1. Patient was advised that this is low risk for acute cardiac event. Patient was given a prescription for Mycelex troches. Patient was instructed to follow-up with her primary care physician in 5 to 7 days. Patient understood and was agreeable with the plan. All questions were answered. Lab Data Attestation: I reviewed the patient's lab results. Labs: Laboratory Results - last 24 hr 02/05/21 02/05/21 09:08 09:08 WBC 7.1 RBC 4.79 Hgb 13.9 Hct 42.2 MCV 88.1 MCH 29.0 MCHC 32.9 RDW Std Deviation 41.6 RDW Coeff of Mulu 13.0 Plt Count 382 MPV 9.2 Immature Gran % (Auto) 0.100 Neut % (Auto) 69.9 Lymph % (Auto) 20.1 [place] % (Auto) 7.7 Eos % (Auto) 1.5 Baso % (Auto) 0.7 Absolute Neuts (auto) 5.0 Absolute Lymphs (auto) 1.43 Nucleated RBC % 0 Sodium 138 Potassium 3.4 L Chloride 105 Carbon Dioxide 27.0 Anion Gap 6 BUN 10 Creatinine 0.76 Estim Creat Clear Calc 83.25 Est GFR (MDRD) Af Amer 102 Est GFR (MDRD) Non-Af 84 BUN/Creatinine Ratio 13.1 Glucose 155 H Calcium 9.1 Troponin I < 0.015 Radiography Chest X-Ray - ED: 1 View, Read by ED Physician, Read by Radiologist and Normal Diagnostic Testing: Radiology Impression Chest X-Ray 02/05/21 08:51 IMPRESSION: Normal x-ray examination of the chest. Electronically Signed: Taye Umana MD at 9:36 EDT , Service support , EKG Initial EKG: Attestation: I personally reviewed and interpreted this EKG as follows: Interpretation: Sinus Tachycardia (102) and LAFB Prior: No Prior Discharge Plan Triage Chief Complaint: Chest Pain ED Provider: Manuel Dobbs Dx/Rx/DC Orders Clinical Impression: Chest pain of uncertain etiology, Candidiasis of mouth Instructions: ED Chest Pain, Uncertain Cause Prescriptions: New clotrimazole 10 mg kely See Rx Instructions .ROUTE .COMPLEX 14 Days Qty: 70 RF: 0 No Action sumatriptan succinate [Imitrex] 25 MG tablet 25 mg PO .X1 PRN RF: 0 montelukast [Singulair] 10 MG tablet 10 mg PO DINNER RF: 0 albuterol sulfate [ProAir HFA] 1 PUFF inhaler 2 puff inhalation Q4H PRN PRN (Reason: Wheezing) RF: 0 cetirizine [Zyrtec] 10 MG tablet 10 mg PO DAILY RF: 0 prednisone 20 MG tablet 20 mg PO DAILY PRN (Reason: ECZEMA) RF: 0 rizatriptan 10 MG tablet 10 mg PO Q2H PRN PRN (Reason: Migraine Symptoms) RF: 0 ondansetron 4 MG tablet 4 mg PO Q8H PRN PRN (Reason: Nausea) Qty: 10 RF: 0 tdilbdocnk-wglyceiaqhflx-ppgh 1 TABLET tablet 1 - 2 tab PO Q4H PRN PRN (Reason: Headache) Qty: 20 RF: 0 propranolol 60 MG capsule 60 mg PO DAILY RF: 0 amitriptyline 75 MG tablet 75 mg PO DAILY RF: 0 tizanidine 4 MG tablet 4 mg PO DAILY RF: 0 hydrocodone-acetaminophen 1 EACH tablet 1 ea PO Q6H PRN PRN (Reason: Pain) 5 Days Qty: 15 RF: 0 Primary Care Provider: Carissa Lr Referrals: Carissa Lr MD [Primary Care Provider] - 5-7 Days Disposition Disposition: Home, self care
[2021-02-05 09:15] LABS: Absolute Lymphocyte Count 1.43 X10^3/uL (0.83-4.51); Basophil# 0.05 X10^3/uL; Basophil% 0.7 % (0-1); Eosinophil# 0.11 X10^3/uL; Eosinophils% 1.5 % (0-5); Hematocrit 42.2 % (37-47); Hemoglobin 13.9 g/dL (12.0-15.0); Lymphocyte # 1.43 X10^3/ul (0.83-4.51); Lymphocyte % 20.1 % (19-41); Mean Corp Hgb Conc 32.9 g/dL (32-36); Mean Corpuscular Volume 88.1 fL (81-99); Mean Platelet Vol. 9.2 fl (6.2-12.0); Monocyte# 0.55 X10^3/uL; Monocyte% 7.7 % (0-10); NRBC Flagged by Analyzer 0 % (0-5); Neutrophil # 4.98 X10^3/uL (2.7-7.7); Neutrophil % 69.9 % (47-70); Platelet Count 382 K/mm3 (150-450); RBC Distribution Width SD 41.6 fl (35.1-43.9); Red Blood Count 4.79 M/mm3 (4.2-5.4); White Blood Count 7.1 K/mm3 (4.4-11.0)
[2021-02-05] MEDS: Aspirin 81 MG TAB.CHEW 324 MG PO (09:21)
[2021-02-05] MEDS: Mag Hydrox/Al Hydrox/Simeth 30 ML UDC PO (09:21)
[2021-02-05 09:25] VITALS: BP 153/92; PULSE 90; RESP 16; O2SAT 95
[2021-02-05 09:30] LABS: Anion Gap 6 (5-15); BUN 10 mg/dL (7-18); BUN/Creat Ratio 13.1 RATIO (10-20); Calcium,Total 9.1 mg/dL (8.5-10.1); Chloride 105 mmol/L (98-107); Creatinine, Serum 0.76 mg/dL (0.55-1.02); EST Glomerular Filtration Rate 84 mL/min (>60); Est Glom Filt Rate - Afr Amer 102 mL/min (>60); Estimated Creatinine Clearance 83.25 ml/min; Glucose 155 mg/dL (74-106); Potassium 3.4 mmol/L (3.5-5.1); Sodium Level 138 mmol/L (136-145)
[2021-02-05 10:21] VITALS: BP 154/89; PULSE 73; RESP 16
== END 2021-02-05 10:24 | disposition home or self-care (01) ==
PROVIDERS: Emergency Provider Emergency Medicine; PCP Internal Medicine
DX: R07.9 Chest pain, unspecified (principal); B37.0 Candidal stomatitis; E66.9 Obesity, unspecified
CPT/HCPCS: 36415; 71045; 80048; 84484; 85025; 93005; 99284; A4216

== ENCOUNTER → 2021-05-17 14:52 | Outpatient (CLI) | payer OTHER, SELFPAY ==
--- NOTE | 2021-05-17 15:24 | BI_ITS ---
MAMMOGRAPHY - BILATERAL SCREENING REASON FOR EXAM: Female, 56 years old. Routine annual screening examination. PERTINENT HISTORY: Non-contributory. History of prior left stereotactic breast biopsy and excisional breast biopsy. TECHNIQUE: Digital bilateral breast nathanael (3D mammographic acquisition) in the CC and MLO projections. 2-D mediolateral oblique (MLO) and craniocaudad (CC) views of both breasts were obtained. CAD: Full Field Digital Mammography with Computer Added Detection was performed. COMPARISON: Comparison is made with prior study dated 03/06/2020 and 06/03/2018. FINDINGS: Breast Composition: The breasts are heterogeneously dense, which may obscure small masses. There are no dominant masses or suspicious calcifications. Stable small benign appearing bilateral axillary lymph nodes. No other significant abnormalities are identified. There has been no significant change since the prior study. BI/SCRN MAMM (CAD)W/NATHANAEL BILAT IMPRESSION: Stable bilateral screening mammogram. Yearly follow-up mammogram recommended. (A) ASSESSMENT CATEGORY: BIRADS Category 2: Benign. A letter regarding these results will be sent to the patient by the facility within 30 days. Approximately 10% of breast cancers are not detected by mammography. A normal mammogram should not delay biopsy of a clinically suspicious abnormality. [id number] Electronically Signed: Taye Umana MD at 8:10 EDT , Service support ,
== END ==
PROVIDERS: PCP Internal Medicine; Referring Provider Emergency Medicine; Visit Provider Emergency Medicine
DX: Z12.31 Encounter for screening mammogram for malignant neoplasm of breast (principal)
CPT/HCPCS: 77063; 77067

== ENCOUNTER → 2022-08-29 | Outpatient (CLI) | payer BC, SELFPAY ==
--- NOTE | 2022-08-29 09:52 | BI_ITS ---
MAMMOGRAPHY - BILATERAL SCREENING REASON FOR EXAM: Female, 57 years old. Routine annual screening examination. PERTINENT HISTORY: No family history of breast cancer. Prior history of left stereotactic biopsy in 2018 and left excisional biopsy with negative tissue sample in 2019. No personal history of breast cancer. TECHNIQUE: Digital bilateral breast nathanael (3D mammographic acquisition) in the CC and MLO projections. 2-D mediolateral oblique (MLO) and craniocaudad (CC) views of both breasts were obtained. CAD: Full Field Digital Mammography with Computer Added Detection was performed. COMPARISON: 05/17/2021, 03/06/2020. FINDINGS: Breast Composition: The breasts are heterogeneously dense, which may obscure small masses. There are no dominant masses or suspicious calcifications. Stable small benign appearing bilateral axillary lymph nodes. No other significant abnormalities are identified. There has been no significant change since the prior study. BI/SCRN MAMM (CAD)W/NATHANAEL BILAT IMPRESSION: Stable bilateral screening mammogram. Yearly follow-up mammogram recommended. (A) ASSESSMENT CATEGORY: BIRADS Category 2: Benign. A letter regarding these results will be sent to the patient by the facility within 30 days. Approximately 10% of breast cancers are not detected by mammography. A normal mammogram should not delay biopsy of a clinically suspicious abnormality. Electronically Signed: Buddy Walker, at 12:02 EST ,
== END | disposition home or self-care (01) ==
PROVIDERS: PCP Internal Medicine; Referring Provider Internal Medicine; Visit Provider Internal Medicine
DX: Z12.31 Encounter for screening mammogram for malignant neoplasm of breast (principal)
CPT/HCPCS: 77063; 77067

== ENCOUNTER → 2023-10-29 | Outpatient (CLI) | payer BC, SELFPAY ==
--- NOTE | 2023-10-29 10:43 | BI_ITS ---
MAMMOGRAPHY - BILATERAL SCREENING REASON FOR EXAM: Female, 58 years old. Routine annual screening examination. PERTINENT HISTORY: Non-contributory. History of prior left excisional breast biopsy. TECHNIQUE: Digital bilateral breast nathanael (3D mammographic acquisition) in the CC and MLO projections. 2-D mediolateral oblique (MLO) and craniocaudad (CC) views of both breasts were obtained. CAD: Full Field Digital Mammography with Computer Added Detection was performed. COMPARISON: Comparison is made with prior study August 29, 2022 and May 17, 2021. FINDINGS: Breast Composition: The breasts are heterogeneously dense, which may obscure small masses. There are no dominant masses or suspicious calcifications. Stable small benign-appearing bilateral axillary lymph nodes. No other significant abnormalities are identified. There has been no significant change since the prior study. BI/SCRN MAMM (CAD)W/NATHANAEL BILAT IMPRESSION: Stable bilateral screening mammogram. Yearly follow-up mammogram recommended. (A) ASSESSMENT CATEGORY: BIRADS Category 2: Benign. A letter regarding these results will be sent to the patient by the facility within 30 days. Approximately 10% of breast cancers are not detected by mammography. A normal mammogram should not delay biopsy of a clinically suspicious abnormality. [id number] Electronically Signed: Taye Umana MD at 13:40 EST ,
--- OUTSIDE RECORDS SUMMARY | 2023-10-29 11:10 | XMS RPT_ITS | CCD ---
Author Name Unknown Address [address] [place] [address] Organization [facility] Care Team Providers Care Battery Container Tester Aluminum Name Role Phone Aidan Lr MD Primary Care Provider SYSTEM, PROVIDER NOT IN Referring Unavailmarvin LR AIDAN Maya Primary Care Unavailable ALLI ACEVEDO Attending Unavailab MIGUEL Osborn Consulting Unavailable JIE POLO Admitting UnavailAidan Daniel MD Primary Care Provider Aidan Lr MD Primary Care Provider Aidan Lr MD Primary Care Provider CANELO PEREIRA Attending Unavailable ROBLES, MARISABEL Referring Unavailable TALAMPAS, AIDAN D Primary Care Unavailable ROBLES, MARISABEL Referring Unavailable TALAMPAS, AIDAN D Primary Care Unavailable MARCIAL ROBLESI Attending Unavailable TALAMPAS, AIDAN D Primary Care Unavailable TALAMPAS, AIDAN D Primary Care Unavailable TALAMPAS, AIDAN D Primary Care Unavailable TALAMPAS, AIDAN D Primary Care Unavailable TALAMPAS, AIDAN D Primary Care Unavailable TALAMPAS, AIDAN D Primary Care Unavailable Allergies Allergy Classification Reported Allergen(s) Allergy Type Date of Onset Reaction(s) Facility Anti-Epileptic Agents (2 sources) topiramate; Translations: [TOPIRAMATE] Drug Allergy 1 [facility] colesevelam (2 sources) colesevelam; Translations: [COLESEVELAM] Drug Allergy 1 [facility] NSAIDs (2 sources) Naproxen; Translations: [NAPROXEN] Drug Allergy 1 [facility] (20 sources) Azithromycin; Translations: [AZITHROMYCIN] Drug Allergy 2 Other: See Comments [facility] Work Phone: (20 sources) Clotrimazole; Translations: [CLOTRIMAZOLE] Drug Allergy 1 Itching [facility] Work Phone: (20 sources) colesevelam; Translations: [COLESEVELAM] Drug Allergy 8 Other: See Comments [facility] Work Phone: (20 sources) Latex; Translations: [LATEX] Drug Allergy 8 Rash [facility] (20 sources) Naproxen; Translations: [NAPROXEN] Drug Allergy 9 [facility] Work Phone: (20 sources) topiramate; Translations: [TOPIRAMATE] Drug Allergy 5 Rash [facility] Work Phone: (20 sources) environmental [Other] Propensity to adverse reactions 6 [facility] Work Phone: (1 source) OTHER; Translations: [OTHER] Propensity to adverse reactions (disorder) 6 [facility] Medications Current Medications Medication Drug Class(es) Dates Sig (Normalized) Sig (Original) acetaminophen 325 mg / HYDROcodone bitartrate 5 mg oral tablet (2 sources) Opioid Agonist Start: 01-25-2021 End: 01-28-2021 take 1 tablet by mouth every six hours as needed HYDROcodone-acetamin ophen (NORCO) 5-325 mg per tablet Indications: Diverticulitis of colon Take 1 (one) tablet by mouth every 6 (six) hours as needed ( . 12 tablet 0 01/25/2021 01/28/2021 Active Completed/Discontinued Medications Medication Drug Class(es) Dates Sig (Normalized) Sig (Original) Acetaminophen (2 sources) Start: 01-24-2021 End: 01-25-2021 take 1 tablet by mouth every eight hours acetaminophen (TYLENOL) tablet 975 mg Problems Active Problems Problem Classification Problem Date Documented Da te Episodic/Chronic Deficiency and other anemia (1 source) Anemia; Translations: [Anemia, unspecified] Episodic Diabetes mellitus without complication (1 source) Increased glucose level; Translations: [Other abnormal glucose] Episodic Diverticulosis and diverticulitis (2 sources) Diverticulitis of colon; Translations: [Diverticulitis of large intestine without perforation or abscess without bleeding] Onset: 1 Chronic Esophageal disorders (20 sources) Gastroesophageal reflux disease; Translations: [Gastro-esophageal reflux disease without esophagitis] Onset: 1 03-13-2021 Chronic Headache; including migraine (20 sources) Migraine with aura; Translations: [Migraine with aura, not intractable, without status migrainosus] Onset: 0 Chronic Nausea and vomiting (1 source) Nausea, vomiting and diarrhea; Translations: [Nausea with vomiting, unspecified] 09-01-2023 Episodic Nutritional deficiencies (20 sources) Deficiency of macronutrients; Translations: [Mild protein-calorie malnutrition] Onset: 1 03-13-2021 Chronic Other aftercare (4 sources) Patient encounter status; Translations: [Other director long term care (current) drug therapy] Episodic Other diseases of bladder and urethra (20 sources) Vesicocolic fistula; 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] Onset: 1 03-13-2021 Chronic Other ear and sense organ disorders (1 source) Acute otitis externa of bilateral ears; Translations: [Unspecified acute noninfective otitis externa, bilateral] 08-03-2023 Episodic Other ear and sense organ disorders (1 source) Bilateral earache; Translations: [Otalgia, bilateral] 09-01-2023 Episodic Other gastrointestinal disorders (20 sources) Non-infective diarrhea; 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] Onset: 8 02-11-2018 Chronic Other hereditary and degenerative nervous system conditions (20 sources) Restless legs; Translations: [Restless legs syndrome] Onset: 1 03-06-2021 Chronic Other nervous system disorders (1 source) Other chronic pain; Translations: [Chronic wrist pain, left] Onset: 3 Chronic Other non-traumatic joint disorders (1 source) Pain in right knee; Translations: [Pain in joint, lower leg] Episodic Other non-traumatic joint disorders (3 sources) Chronic pain of left upper limb; Translations: [Pain in left wrist] Episodic Other nutritional; endocrine; and metabolic disorders (20 sources) Morbid obesity; Translations: [Morbid (severe) obesity due to excess calories] Onset: 3 03-13-2021 Chronic Other nutritional; endocrine; and metabolic disorders (20 sources) Body mass index 40+ - severely obese; Translations: [Morbid (severe) obesity due to excess calories] Onset: 1 07-25-2021 Chronic Other upper respiratory disease (20 sources) Allergic rhinitis; Translations: [Allergic rhinitis, unspecified] 02-11-2018 Chronic Other upper respiratory disease (20 sources) Allergic disposition; Translations: [Other allergic rhinitis] Onset: 1 03-06-2021 Chronic Other upper respiratory disease (1 source) Chronic rhinitis; Translations: [Unspecified sinusitis (chronic)] Chronic Other upper respiratory infections (2 sources) Bacterial sinusitis; Translations: [Chronic sinusitis, unspecified] Chronic Other upper respiratory infections (2 sources) Pharyngitis; Translations: [Acute pharyngitis, unspecified] Episodic Otitis media and related conditions (1 source) Acute left otitis media; Translations: [Otitis media, unspecified, left ear] Episodic Prolapse of female genital organs (20 sources) Midline cystocele; Translations: [Cystocele, midline] Onset: 2 02-24-2012 Chronic Past or Other Problems Problem Classification Problem Date Documented Date Episodic/Chronic Abdominal pain (20 sources) Abdominal pain; Translations: [Unspecified abdominal pain] Onset: 11-11-2007 11-11-2007 Episodic Allergic reactions (20 sources) Hand eczema; Translations: [Dermatitis, unspecified] Onset: 04-22-2011 04-22-2011 Episodic Other connective tissue disease (20 sources) Calcaneal spur; Translations: [Calcaneal spur, unspecified foot] Onset: 08-24-2008 08-24-2008 Episodic Other connective tissue disease (20 sources) Plantar fascial fibromatosis; Translations: [Plantar fascial fibromatosis] Onset: 10-27-2008 10-27-2008 Episodic Other inflammatory condition of skin (20 sources) Itching of skin; Translations: [Pruritus, unspecified] Onset: 04-22-2011 04-22-2011 Episodic Other inflammatory condition of skin (6 sources) Pruritus, unspecified; Translations: [Unspecified pruritic disorder] Onset: 04-22-2011 04-22-2011 Episodic Other injuries and conditions due to external causes (20 sources) Excoriation of skin; Translations: [Other injury of unspecified body region, initial encounter] Onset: 04-22-2011 04-22-2011 Episodic Other nervous system disorders (20 sources) Postoperative pain ; Translations: [Other acute postprocedural pain] Onset: 03-11-2021 03-13-2021 Episodic Other non-traumatic joint disorders (1 source) Pain in left wrist; Translations: [Chronic wrist pain, left] Onset: 12-18-2022 Episodic Other skin disorders (20 sources) Vesicular eczema; Translations: [Dyshidrosis [pompholyx]] Onset: 04-22-2011 04-22-2011 Episodic Other skin disorders (20 sources) Fissure in skin; Translations: [Disorder of the skin and subcutaneous tissue, unspecified] Onset: 04-22-2011 04-22-2011 Episodic Residual codes; unclassified (20 sources) Postoperative state; Translations: [Other specified postprocedural states] Onset: 03-11-2021 03-13-2021 Episodic Skin and subcutaneous tissue infections (20 sources) Pyoderma; Translations: [Pyoderma] Onset: 04-22-2011 04-22-2011 Episodic Sprains and strains (20 sources) Sprain of cruciate ligament of knee; Translations: [Sprain of unspecified cruciate ligament of unspecified knee, initial encounter] Onset: 09-02-2005 09-02-2005 Episodic Results Test Name Value Interpretation Reference Range Facil ity Vital Signs Date Time Vital Sign Value Performing Clinician Pearl varela 09-01-2023 11:06-0500 Body temperature 99.39 [degF] Ellis Henson APRN.CNP Work Phone: [facility] 09-01-2023 11:06-0500 Body weight 147.87 kg Ellis Henson APRN.CNP Work Phone: [facility] 09-01-2023 11:06-0500 Diastolic blood pressure 86 mm[Hg] Ellis Henson APRN.CNP Work Phone: [facility] 09-01-2023 11:06-0500 Heart rate 93 /min Ellis Henson APRN.CNP Work Phone: [facility] 09-01-2023 11:06-0500 Respiratory rate 20 /min Ellis Henson CAR FERRY CAPTAIN.MOLD CLEANER Work Phone: [facility] 09-01-2023 11:06-0500 SaO2% (BldA) [Mass fraction] 96 % Ellis Henson CAR FERRY CAPTAIN.MOLD CLEANER Work Phone: [facility] 09-01-2023 11:06-0500 Systolic blood pressure 138 mm[Hg] Ellis Henson CAR FERRY CAPTAIN.MOLD CLEANER Work Phone: [facility] 08-03-2023 12:37-0400 Body temperature 98.29 [degF] Theresa Athy PA-C Work Phone: [facility] 08-03-2023 12:37-0400 Body weight 150.87 kg Theresa Athy PA-C Work Phone: [facility] 08-03-2023 12:37-0400 Diastolic blood pressure 72 mm[Hg] Theresa Athy PA-C Work Phone: [facility] 08-03-2023 12:37-0400 Heart rate 105 /min Theresa Athy PA-C Work Phone: [facility] 08-03-2023 12:37-0400 Respiratory rate 21 /min Theresa Athy PA-C Work Phone: [facility] 08-03-2023 12:37-0400 SaO2% (BldA) [Mass fraction] 97 % Theresa Athy PA-C Work Phone: [facility] 08-03-2023 12:37-0400 Systolic blood pressure 158 mm[Hg] Theresa Athy PA-C Work Phone: [facility] 02-13-2023 11:55-0400 Body temperature 98.8 [degF] Lauryn Phillips CAR FERRY CAPTAIN.MOLD CLEANER Work Phone: [facility] 02-13-2023 11:55-0400 Body weight 147.06 kg Lauryn Phillips CAR FERRY CAPTAIN.MOLD CLEANER Work Phone: [facility] 02-13-2023 11:55-0400 Diastolic blood pressure 94 mm[Hg] Lauryn Phillips CAR FERRY CAPTAIN.MOLD CLEANER Work Phone: [facility] 02-13-2023 11:55-0400 Heart rate 101 /min Lauryn Phillips CAR FERRY CAPTAIN.MOLD CLEANER Work Phone: [facility] 02-13-2023 11:55-0400 Respiratory rate 20 /min Lauryn Phillips CAR FERRY CAPTAIN.MOLD CLEANER Work Phone: [facility] 02-13-2023 11:55-0400 SaO2% (BldA) [Mass fraction] 94 % Lauryn Phillips CAR FERRY CAPTAIN.MOLD CLEANER Work Phone: [facility] 02-13-2023 11:55-0400 Systolic blood pressure 158 mm[Hg] Lauryn Phillips CAR FERRY CAPTAIN.MOLD CLEANER Work Phone: [facility] 12-01-2022 15:05-0500 Body weight 145.47 kg Marisabel Robles CAR FERRY CAPTAIN.BAG MACHINE TENDER Work Phone: [facility] 12-01-2022 15:05-0500 Diastolic blood pressure 96 mm[Hg] Marisabel Robles CAR FERRY CAPTAIN.BAG MACHINE TENDER Work Phone: [facility] 12-01-2022 15:05-0500 Heart rate 83 /min Marisabel Robles CAR FERRY CAPTAIN.BAG MACHINE TENDER Work Phone: [facility] 12-01-2022 15:05-0500 Respiratory rate 18 /min Marisabel Robles CAR FERRY CAPTAIN.BAG MACHINE TENDER Work Phone: [facility] 12-01-2022 15:05-0500 SaO2% (BldA) [Mass fraction] 95 % Marisabel Robles CAR FERRY CAPTAIN.BAG MACHINE TENDER Work Phone: [facility] 12-01-2022 15:05-0500 Systolic blood pressure 142 mm[Hg] Marisabel Robles CAR FERRY CAPTAIN.BAG MACHINE TENDER Work Phone: [facility] 11-03-2022 16:53-0500 Body temperature 98.01 [degF] Nestor Aiken CAR FERRY CAPTAIN.MOLD CLEANER Work Phone: [facility] 11-03-2022 16:53-0500 Body weight 146.51 kg Nestor Attila CAR FERRY CAPTAIN.MOLD CLEANER Work Phone: [facility] 11-03-2022 16:53-0500 Diastolic blood pressure 88 mm[Hg] Nestorflorence Aiken CAR FERRY CAPTAIN.MOLD CLEANER Work Phone: [facility] 11-03-2022 16:53-0500 Heart rate 91 /min Nestor Aiken CAR FERRY CAPTAIN.MOLD CLEANER Work Phone: [facility] 11-03-2022 16:53-0500 Respiratory rate 18 /min Nestor Aiken CAR FERRY CAPTAIN.MOLD CLEANER Work Phone: [facility] 11-03-2022 16:53-0500 SaO2% (BldA) [Mass fraction] 97 % Nestor Aiken CAR FERRY CAPTAIN.MOLD CLEANER Work Phone: [facility] 11-03-2022 16:53-0500 Systolic blood pressure 152 mm[Hg] Nestor Aiken CAR FERRY CAPTAIN.MOLD CLEANER Work Phone: [facility] 09-02-2022 09:29-0500 Body temperature 98.49 [degF] Lauryn Phillips APRN.MOLD CLEANER Work Phone: [facility] 09-02-2022 09:29-0500 Body weight 144.24 kg Lauryn Phillips APRN.MOLD CLEANER Work Phone: [facility] 09-02-2022 09:29-0500 Diastolic blood pressure 80 mm[Hg] Lauryn Phillips APRN.MOLD CLEANER Work Phone: [facility] 09-02-2022 09:29-0500 Heart rate 108 /min Lauryn Phillips CAR FERRY CAPTAIN.MOLD CLEANER Work Phone: [facility] 09-02-2022 09:29-0500 Respiratory rate 18 /min Lauryn Phillips CAR FERRY CAPTAIN.MOLD CLEANER Work Phone: [facility] 09-02-2022 09:29-0500 SaO2% (BldA) [Mass fraction] 94 % Lauryn Phillips APRN.MOLD CLEANER Work Phone: [facility] 09-02-2022 09:29-0500 Systolic blood pressure 122 mm[Hg] Lauryn Phillips CAR FERRY CAPTAIN.MOLD CLEANER Work Phone: [facility] 07-15-2022 18:25-0400 Body height 166.4 cm Aidan Lr MD Work Phone: [facility] 07-15-2022 18:25-0400 Body weight 140.62 kg Aidan Lr MD Work Phone: [facility] 07-15-2022 18:25-0400 Diastolic blood pressure 82 mm[Hg] Aidan Lr MD Work Phone: [facility] 07-15-2022 18:25-0400 Heart rate 92 /min Aidan Lr MD Work Phone: [facility] 07-15-2022 18:25-0400 SaO2% (BldA) [Mass fraction] 96 % Aidan Lr MD Work Phone: [facility] 07-15-2022 18:25-0400 Systolic blood pressure 140 mm[Hg] Aidan Lr MD Work Phone: [facility] 04-06-2022 10:39-0400 Body temperature 97.5 [degF] Gold Mann CAR FERRY CAPTAIN.MOLD CLEANER Work Phone: [facility] 04-06-2022 10:39-0400 Body weight 140.8 kg Gold Mann CAR FERRY CAPTAIN.MOLD CLEANER Work Phone: [facility] 04-06-2022 10:39-0400 Diastolic blood pressure 82 mm[Hg] Gold Mann CAR FERRY CAPTAIN.MOLD CLEANER Work Phone: [facility] 04-06-2022 10:39-0400 Heart rate 80 /min Gold Mann CAR FERRY CAPTAIN.MOLD CLEANER Work Phone: [facility] 04-06-2022 10:39-0400 Respiratory rate 21 /min Gold Mann CAR FERRY CAPTAIN.MOLD CLEANER Work Phone: [facility] 04-06-2022 10:39-0400 SaO2% (BldA) [Mass fraction] 97 % Gold Mann CAR FERRY CAPTAIN.MOLD CLEANER Work Phone: [facility] 04-06-2022 10:39-0400 Systolic blood pressure 122 mm[Hg] Gold Mann CAR FERRY CAPTAIN.MOLD CLEANER Work Phone: [facility] 01-25-2021 08:59-0400 Body temperature 97.7 [degF] [facility] Work Phone: [facility] 01-25-2021 08:59-0400 Diastolic blood pressure 81 mm[Hg] [facility] Work Phone: [facility] 01-25-2021 08:59-0400 Heart rate 103 /min [facility] Work Phone: [facility] 01-25-2021 08:59-0400 SaO2% (BldA) [Mass fraction] 94 % [facility] Work Phone: [facility] 01-25-2021 08:59-0400 Systolic blood pressure 139 mm[Hg] [facility] Work Phone: [facility] 01-25-2021 06:59-0400 Respiratory rate 18 /min [facility] Work Phone: [facility] 01-23-2021 02:44-0400 Body height 167.6 cm [facility] Work Phone: [facility] 01-23-2021 01:59-0400 Body mass index (BMI) [Ratio] 50.03 kg/m2 [facility] Work Phone: [facility] 01-23-2021 01:59-0400 Body weight 140.6 kg [facility] Work Phone: [facility] Encounters Encounter Date Encounter Type Care Provider Facility Start: 10-14-2023 ambulatory Aidan kaur MD Work Phone: Internal Medicine Main Transfer Start: 09-26-2023 End: 09-26-2023 ambulatory AIDAN LR Facility:[facility] Start: 09-01-2023 End: 09-01-2023 ambulatory AIDAN LR Facility:[facility] Start: 09-01-2023 End: 09-01-2023 Patient encounter procedure Ellis Henson CAR FERR[employer] CAPTAIN.MOLD CLEANER Work Phone: [facility] Procedures Date Procedure Procedure Detail Performing Clinician Start: 09-01-2023 COVID & INFLUENZA A/ B & RSV NAAT, ROUTINE Ellis Henson CAR FERR[employer] CAPTAIN.MOLD CLEANER Work Phone: Start: 03-18-2023 Lipid 1996 panel - S chelsy or Plasma Marisabel Robles CAR FERRY CAPTAIN.BAG MACHINE TENDER Work Phone: Start: 08-29-2022 Mammography Lauryn Phillips [employer] CAPTAIN.MOLD CLEANER Work Phone: Start: 07-15-2022 INFLUENZA VACCINE QUADRIVALENT 6 MO - 64 YRS IM Aidan Lr MD Work Phone: Start: 04-06-2022 STREP A MOLECULAR (POC) Gold Mann CAR FERRY CAPTAIN.MOLD CLEANER Work Phone: Start: 09-05-2021 Colonoscopy Aidan stokes MD Work Phone: Start: 06-17-2021 Adult depression screening assessment Aidan Lr MD Work Phone: Start: 05-17-2021 Mammography Aidan stokes MD Work Phone: Start: 03-11-2021 H/O: surgery S/P bladder repair Aidan Lr MD Work Phone: Start: 01-24-2021 Computerized tomogra phy, limited studies External Transcribed Start: 01-23-2021 Basic metabolic pane l calcium total Marisol Cordova PA-C Work Phone: Plan of Treatment Date Care Activity Detail Author Start: 09-05-2031 Colonoscopy COLONOSCOPY [facility] Start: 09-05-2031 COLORECTAL CANCER SCREENING COLORECTAL CANCER SCREENING [facility] Start: 09-05-2031 Screening for malignant neoplasm of colon [facility] Start: 03-18-2028 Lipid 1996 panel - Serum or Plasma Lipid Screening [facility] Start: 03-18-2028 Lipid panel Lipid Screening [facility] Start: 03-18-2028 LIPID SCREEN LIPID SCREEN [facility] Start: 10-09-2027 HPV TESTING HPV TESTING [facility] Start: 10-09-2027 PAP TESTING PAP TESTING [facility] Start: 10-09-2027 Screening for malignant neoplasm of cervix [facility] Start: 07-24-2027 LIPID SCREEN LIPID SCREEN [facility] Start: 03-18-2026 DIABETES SCREEN DIABETES SCREEN [facility] Start: 03-18-2026 Diabetes Screening Diabetes Screening [facility] Start: 07-24-2025 DIABETES SCREEN DIABETES SCREEN [facility] Start: 03-11-2024 DIABETES SCREEN DIABETES SCREEN [facility] Start: 10-05-2023 Depression Assessment Depression Assessment [facility] Start: 08-29-2023 Mammography [facility] Start: 08-29-2023 Screening for malignant neoplasm of breast Mammogram Screening [facility] Start: 06-05-2023 Covid-19 Vaccine () Covid-19 Vaccine () [facility] Start: 06-05-2023 Influenza vaccination [facility] Start: 02-01-2023 Tetanus vaccination Tetanus: Every 10yrs [facility] Start: 02-01-2023 Urine microalbumin profile [facility] Start: 10-05-2022 DEPRESSION ASSESSMENT DEPRESSION ASSESSMENT [facility] Start: 06-17-2022 Adult depression screening assessment DEPRESSION SCREENING [facility] Start: 06-05-2022 End: 08-05-2022 CBC panel - Blood by Automated count CBC Lab Routine Encounter for long-term current use of medication Anemia, unspecified type Expected: 06/05/2022, Expires: 08/05/2022 [facility] Work Phone: Immunizations Immunization Date Immunization Notes Care Provider Fa juliana 07-15-2022 influenza, injectabl e, quadrivalent, contains preservative Aidan Lr MD Work Phone: [facility] 07-15-2022 influenza virus vaccine, unspecified formulation Marisabel Robles CAR FERR[employer] CAPTAIN.BAG MACHINE TENDER Work Phone: [facility] 08-13-2021 influenza, seasonal, injectable Aidan Lr MD Work Phone: [facility] Work Phone: 07-26-2021 COVID-19 vaccine, ag e 12+ yr ([employer] - PURPLE TOP) Aidan Lr MD Work Phone: [facility] Work Phone: 12-04-2020 pneumococcal conjuga te vaccine, 13 valent Aidan Lr MD Work Phone: [facility] 08-16-2019 influenza, seasonal, injectable Aidan Lr MD Work Phone: [facility] 06-12-2018 influenza, injectabl e, quadrivalent, contains preservative Aidan Lr MD Work Phone: [facility] 08-15-2016 influenza, injectabl e, quadrivalent, contains preservative Aidan Lr MD Work Phone: [facility] 08-15-2015 influenza, injectabl e, quadrivalent, contains preservative Aidan Lr MD Work Phone: [facility] 08-05-2013 influenza virus vaccine, unspecified formulation Aidan Lr MD Work Phone: [facility] Work Phone: 02-01-2013 tetanus toxoid, reduced diphtheria toxoid, and acellular pertussis vaccine, adsorbed Aidan Lr MD Work Phone: [facility] 06-30-2011 influenza virus vaccine, unspecified formulation Aidan Lr MD Work Phone: [facility] Work Phone: 06-25-2009 influenza virus vaccine, whole virus Aidan Lr MD Work Phone: [facility] NEGATED: Highlighted row has not occurred!07-27-2021 COVID-19 vaccine, age 12+ yr (PFIZER-BIONTECH - PURPLE TOP) Aidan Lr MD Work Phone: [facility] Work Phone: Payers Date Payer Category Payer Unknown [id number] 2022 Unknown [id number] 2021 Unknown [employer] BLUE CARD PPO OOS [id number] 2021-Present [phone] [address] [place] [address] PPO [id number] 2021 Unknown [id number] 2018 Unknown MMO MED M[employer] S UPERMED PPO [id number] 2018-Present [id number] 2018 Unknown [id number] 1965 Unknown [id number] Social History Date Type Detail Facility Start: 01-24-2021 End: 09-02-2022 Tobacco smoking status NHIS Never smoker [facility] Work Phone: Start: 01-24-2021 End: 09-02-2022 Tobacco use and exposure Never used [facility] Sex Assigned At Not on file [facility] Start: 03-27-2022 End: 09-02-2022 Exposure to SARS-CoV-2 (event) Not sure [facility] Start: 12-14-2021 End: 09-26-2023 Alcohol intake Current drinker of alcohol (finding) [facility] Start: 12-14-2021 End: 10-17-2022 Alcohol intake [facility] Start: 12-26-2021 End: 11-28-2022 History SDOH Alcohol Frequency 3 [facility] Start: 12-26-2021 End: 11-28-2022 History SDOH Alcohol Std Drinks 1 [facility] Start: 03-06-2021 History SDOH Alcohol Comment 2 beers per month [facility] Start: 12-26-2021 End: 11-28-2022 History SDOH Social Connections Membership 2 [facility] Start: 12-26-2021 End: 11-28-2022 History SDOH Physical Activity DPW 0 [facility] Start: 1965 Sex Assigned At Female [facility] Start: 11-28-2022 History SDOH Financial 5 [facility] Start: 10-17-2022 End: 11-27-2022 Social connection and isolation panel [facility] Do you belong to any clubs or organizations such as yarsani groups, unions, fraternal or athletic groups, or school groups? No [facility] Are you now , , , , never or living with a partner? [facility] How often to you hav e a drink containing alcohol? 2-4 times a month [facility] How many standard dr inks containing alcohol do you have on a typical day? 1 or 2 [facility] How often do you hav e 6 or more drinks on 1 occasion? Never [facility] How hard is it for y ou to pay for the very basics like food, housing, medical care, and heating Not hard at all [facility] Do you feel stress - tense, restless, nervous, or anxious, or unable to sleep at night because your mind is troubled all the time - these days [OSQ] Not at all [facility] (I/We) worried whemakenzie er (my/our) food would run out before (I/we) got money to buy more. Never true [facility] Start: 03-02-2021 Gender identity Identifies as female gender (finding) [facility] Start: 03-02-2021 Sexual orientation Heterosexual (finding) [facility] Clinical Notes 01-23-2021 to 10-14-2023 Addendum Note - Ellis Henson APRN.[facility] - 09/01/2023 11:32 AM Ellis Frank APRN.[facility] - 09/01/2023 11:11 AM Theresa Mathews PA-C - 08/03/2023 2:44 PM Fitz Masterson RN - 12/18/2022 1:25 PM EDT Note Date & Type Note Facility 10-14-2023 Note Patient Outreach (IN [facility]) DULCE MARIA ALVAREZ ([id number]) 1965 F Date Time Provider Department 10/14/23 AIDAN LR During your visit today, we recorded the following information about you: Allergies As of Date: 10/14/2023 Noted Allergy Reaction CLOTRIMAZOLE 03/06/2021 9 - Itching LATEX 05/27/2018 2 - Rash NAPROSYN (NAPROXEN) 12/22/2008 Comments: Chest pain TOPAMAX (TOPIRAMATE) 06/12/2015 2 - Rash Comments: Possible allergic rash after on drug for a long period of time WELCHOL (COLESEVELAM) 06/12/2018 14 - Other: See Comments Comments: dizziness and psoriasis (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 - magnesium oxide (MAG-OX) 400 mg (241.3 mg magnesium) tablet Take 1 tablet by mouth once daily. - benzonatate (TESSALON PERLES) 100 mg capsule Take 2 capsules by mouth three times a day as needed. - ofloxacin (FLOXIN) 0.3 % otic solution Use 10 Drops in both ears once daily. - montelukast (SINGULAIR) 10 mg tablet Take 1 tablet by mouth daily at bedtime. - tiZANidine HCl (ZANAFLEX) 2 mg capsule Take 1 capsule by mouth as needed. - eletriptan (RELPAX) 20 mg tablet take 1 tablet at onset of headache; if headache returns,may repeat dose after 2 hours. No more than 2 doses within a 24 hour period - rOPINIRole (REQUIP) 0.25 mg tablet Take 1 tablet by mouth daily at bedtime. - colestipol (COLESTID) 1 gram tablet Take 1 tablet by mouth once daily. As directed - colestipol (COLESTID) 1 gram tablet Take 1 tablet by mouth once daily. - magnesium oxide (MAG-OX) 400 mg (241.3 mg magnesium) tablet Take 1 tablet by mouth once daily. - albuterol HFA (PROAIR HFA) 90 mcg/actuation inhaler Inhale 2 Puffs as instructed every 4 hours as needed for wheezing/shortness of breath. - fluticasone (FLONASE) 50 mcg/actuation nasal spray Use 1 [place] in each nostril once daily. Rinse mouth after use. - multivitamin with minerals (HAIR,SKIN AND NAILS ORAL) Take by mouth. - RESTASIS 0.05 % ophthalmic emulsion - Flaxseed Oil 1,000 mg cap Take 1,000 mg by mouth. - omeprazole (PRILOSEC) 20 mg capsule Take 1 capsule by mouth once daily as needed. 1/2 hr before meal. - DUPIXENT 300 mg/2 mL injection 300 mg every 2 weeks. - desoximetasone (TOPICORT) 0.25 % cream Apply [...] including to other dry skin ar - cetirizine (ZYRTEC) 10 mg tablet Take 1 tablet by mouth once daily. - guaiFENesin (MUCINEX) 600 mg 12 hr tablet Take 2 tablets by mouth twice daily. - naphazoline-pheniramine eye drops (NAPHCON-A) 0.025-0.3 % ophthalmic solution 1 Drop every 4 hours as needed. 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] 04/22/2011 Hand dermatitis [L30.9] 04/22/2011 Pyoderma, unspecified [L08.0] 04/22/2011 Pruritus [L29.9] 04/22/2011 Excoriation [T14.8XXA] 04/22/2011 Cracking skin [L98.9] 04/22/2011 Contact dermatitis and other eczema, due to uns*04/22/2011 Cystocele, midline [N81.11] 02/24/2012 Morbid obesity due to excess calories (HCC)--BM*02/06/2013 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 [facility] 09-26-2023 Note HNO ID: [id number] Author: Henny Moerlos APRN.[employer] Service: ? Author Type: Nurse Practitioner Type: Progress Notes Filed: 09/26/2023 9:44 AM Note Text: Subjective Eye Problem Pertinent negatives include no chills, congestion, coughing, fever, headaches or sore throat. Dulce Maria Alvarez is a 58 year old female who presents with bilateral eyes with redness and feeling scratchy and having some drainage for the past 5 days. Denies eye pain or visual changes No associated URI symptoms She has not used any medications at home. Review of Systems Constitutional: Negative for chills and fever. HENT: Negative for congestion, ear pain and sore throat. Eyes: Positive for discharge and redness. Negative for blurred vision, double vision, photophobia and pain. Respiratory: Negative for cough. Cardiovascular: Negative. Neurological: Negative for dizziness and headaches. BP 132/84 Pulse 89 Temp 36.6 ?C (97.8 ?F) (Tympanic) Resp 16 Wt (!) 149.5 kg (329 lb 9.6 oz) LMP 09/11/2015 BMI 51.62 kg/m? PAST MEDICAL HISTORY Diagnosis Date Allergic rhinitis, cause unspecified Colovesical fistula 03/2021 surgical repair Cystocele, midline Diverticulitis Generalized osteoarthrosis, unspecified site Migraine with Aura 01/28/2010 Pain in thoracic spine Plantar fascial fibromatosis PAST SURGICAL HISTORY Procedure Laterality Date COLONOSCOPY FLX DX W/COLLJ SPEC WHEN PFRMD 09/05/2021 normal with 10 yr interval LAPAROSCOPIC HEMICOLECTOMY 03/2021 Colovesical fistula secondary to diverticulitis LIG/TRNSXJ FLP TUBE ABDL/VAG APPR UNI/BI Tubal ligation PAST SURGICAL HISTORY OF 06/10/2011 Gall bladder PAST SURGICAL HISTORY OF 07/2018 RPR 1ST INGUN HRNA AGE 7 YRS/> REDUCIBLE 1972 Hernia repair, inguinal right ALLERGIES Clotrimazole, Latex, Naprosyn [Naproxen], Topamax [Topiramate], Welchol [Colesevelam], and Zpak [Azithromycin] MEDICATIONS ondansetron orally disintegrating (ZOFRAN ODT) 4 mg disintegrating tablet Take 1 tablet by mouth every 6 hours as needed for nausea/vomiting. magnesium oxide (MAG-OX) 400 mg (241.3 mg magnesium) tablet Take 1 tablet by mouth once daily. benzonatate (TESSALON PERLES) 100 mg capsule Take 2 capsules by mouth three times a day as needed. ofloxacin (FLOXIN) 0.3 % otic solution Use 10 Drops in both ears once daily. montelukast (SINGULAIR) 10 mg tablet Take 1 tablet by mouth daily at bedtime. tiZANidine HCl (ZANAFLEX) 2 mg capsule Take 1 capsule by mouth as needed. eletriptan (RELPAX) 20 mg tablet take 1 tablet at onset of headache; if headache returns,may repeat dose after 2 hours. No more than 2 doses within a 24 hour period rOPINIRole (REQUIP) 0.25 mg tablet Take 1 tablet by mouth daily at bedtime. colestipol (COLESTID) 1 gram tablet Take 1 tablet by mouth once daily. As directed (Patient taking differently: Take 1 g by mouth once daily. 1/2 tablet daily) colestipol (COLESTID) 1 gram tablet Take 1 tablet by mouth once daily. magnesium oxide (MAG-OX) 400 mg (241.3 mg magnesium) tablet Take 1 tablet by mouth once daily. albuterol HFA (PROAIR HFA) 90 mcg/actuation inhaler Inhale 2 Puffs as instructed every 4 hours as needed for wheezing/shortness of breath. fluticasone (FLONASE) 50 mcg/actuation nasal spray Use 1 [place] in each nostril once daily. Rinse mouth after use. multivitamin with minerals (HAIR,SKIN AND NAILS ORAL) Take by mouth. RESTASIS 0.05 % ophthalmic emulsion Flaxseed Oil 1,000 mg cap Take 1,000 mg by mouth. omeprazole (PRILOSEC) 20 mg capsule Take 1 capsule by mouth once daily as needed. 1/2 hr before meal. DUPIXENT 300 mg/2 mL injection 300 mg every 2 weeks. desoximetasone (TOPICORT) 0.25 % cream Apply to the worst or most resistant spots of eczematous dermatitis rash selectively on open areas of arms, legs, trunk, and hands//feet bid (twice per day) until clear and then can stop or taper off as able and directed. AVOID face, eyes/eyelids, and deep fold areas. clobetasol [...] day, including to other dry skin ar cetirizine (ZYRTEC) 10 mg tablet Take 1 tablet by mouth once daily. guaiFENesin (MUCINEX) 600 mg 12 hr tablet Take 2 tablets by mouth twice daily. naphazoline-pheniramine eye drops (NAPHCON-A) 0.025-0.3 % ophthalmic solution 1 Drop every 4 hours as needed. trimethoprim-polymyxin (POLYTRIM) 10,000 unit- 1 mg/mL ophthalmic solution Use 1 Drop in both eyes four times daily for 7 days. FAMILY HISTORY Problem Relation Age of Onset Emphysema Mother smoker Heart Mother HEART MURMUR/CHF Hypertension Father Stroke Father Heart Father CA Prostate Cancer Father prostate COPD Father sm (more content not included)... [facility] 09-01-2023 Note HNO ID: [id number] Author: Ellis Henson APRN.[employer] Service: ? Author Type: Nurse Practitioner Type: Progress Notes Filed: 09/01/2023 11:22 AM Note Text: This note was created using NoteWriter. Subjective Dulce Maria Alvarez is a 58 year old female. 58 year old female with PMH GERD presents for illness. Acute onset 2 days ago +nausea +emesis x 2 +diarrhea +headache +ear ache, bilateral +chest congestion +Tylenol Denies tobacco usage +ill contacts, citing The history is provided by the patient. No card folder was used. Flu Like Symptoms This is a new problem. Episode onset: 2 days ago. The problem occurs constantly. The problem has been gradually worsening. Associated symptoms include chills, congestion, coughing and headaches. Pertinent negatives include no abdominal pain, anorexia, arthralgias, change in bowel habit, chest pain, diaphoresis, fatigue, fever, joint swelling, myalgias, nausea, neck pain, numbness, rash, sore throat, swollen glands, urinary symptoms, vertigo, visual change, vomiting or weakness. Nothing aggravates the symptoms. She has tried nothing for the symptoms. The treatment provided no relief. PAST MEDICAL HISTORY Diagnosis Date Allergic rhinitis, cause unspecified Colovesical fistula 03/2021 surgical repair Cystocele, midline Diverticulitis Generalized osteoarthrosis, unspecified site Migraine with Aura 01/28/2010 Pain in thoracic spine Plantar fascial fibromatosis PAST SURGICAL HISTORY Procedure Laterality Date COLONOSCOPY FLX DX W/COLLJ SPEC WHEN PFRMD 09/05/2021 normal with 10 yr interval LAPAROSCOPIC HEMICOLECTOMY 03/2021 Colovesical fistula secondary to diverticulitis LIG/TRNSXJ FLP TUBE ABDL/VAG APPR UNI/BI Tubal ligation PAST SURGICAL HISTORY OF 06/10/2011 Gall bladder PAST SURGICAL HISTORY OF 07/2018 RPR 1ST INGUN HRNA AGE 7 YRS/> REDUCIBLE 1972 Hernia repair, inguinal right ALLERGIES Clotrimazole, Latex, Naprosyn [Naproxen], Topamax [Topiramate], Welchol [Colesevelam], and Zpak [Azithromycin] MEDICATIONS magnesium oxide (MAG-OX) 400 mg (241.3 mg magnesium) tablet Take 1 tablet by mouth once daily. benzonatate (TESSALON PERLES) 100 mg capsule Take 2 capsules by mouth three times a day as needed. ofloxacin (FLOXIN) 0.3 % otic solution Use 10 Drops in both ears once daily. montelukast (SINGULAIR) 10 mg tablet Take 1 tablet by mouth daily at bedtime. tiZANidine HCl (ZANAFLEX) 2 mg capsule Take 1 capsule by mouth as needed. eletriptan (RELPAX) 20 mg tablet take 1 tablet at onset of headache; if headache returns,may repeat dose after 2 hours. No more than 2 doses within a 24 hour period rOPINIRole (REQUIP) 0.25 mg tablet Take 1 tablet by mouth daily at bedtime. colestipol (COLESTID) 1 gram tablet Take 1 tablet by mouth once daily. As directed (Patient taking differently: Take 1 g by mouth once daily. 1/2 tablet daily) colestipol (COLESTID) 1 gram tablet Take 1 tablet by mouth once daily. magnesium oxide (MAG-OX) 400 mg (241.3 mg magnesium) tablet Take 1 tablet by mouth once daily. albuterol HFA (PROAIR HFA) 90 mcg/actuation inhaler Inhale 2 Puffs as instructed every 4 hours as needed for wheezing/shortness of breath. fluticasone (FLONASE) 50 mcg/actuation nasal spray Use 1 [place] in each nostril once daily. Rinse mouth after use. multivitamin with minerals (HAIR,SKIN AND NAILS ORAL) Take by mouth. RESTASIS 0.05 % ophthalmic emulsion Flaxseed Oil 1,000 mg cap Take 1,000 mg by mouth. omeprazole (PRILOSEC) 20 mg capsule Take 1 capsule by mouth once daily as needed. 1/2 hr before meal. DUPIXENT 300 mg/2 mL injection 300 mg every 2 weeks. desoximetasone (TOPICORT) 0.25 % cream Apply to the worst or most resistant spots of eczematous dermatitis rash selectively on open areas of arms, legs, trunk, and hands//feet bid (twice per day) until clear and then can stop or taper off as able and directed. AVOID face, eyes/eyelids, and deep fold areas. clobetasol [...] day, including to other dry skin ar cetirizine (ZYRTEC) 10 mg tablet Take 1 tablet by mouth once daily. guaiFENesin (MUCINEX) 600 mg 12 hr tablet Take 2 tablets by mouth twice daily. naphazoline-pheniramine eye drops (NAPHCON-A) 0.025-0.3 % ophthalmic solution 1 Drop every 4 hours as needed. ondansetron orally disintegrating (ZOFRAN ODT) 4 mg disintegrating tablet Take 1 tablet by mouth every 6 hours as needed for nausea/vomiting. amoxicillin-clavulanate potassium (AUGMENTIN) 875-125 mg per tablet Take 1 tablet by mouth two times a day for 7 days. FAMILY HISTORY Problem Relation Age of Onset Emphysema Mother smoker Heart M (more content not included)... [facility] 09-01-2023 Miscellaneous Notes Addended by: ELLIS HENSON on: 09/01/2023 11:32 AM Modules accepted: Orders documented in this encounter [facility] 09-01-2023 History of Present illness Narrative This note was created using NoteWriter. Subjective Dulce Maria Alvarez is a 58 year old female. 58 year old female with PMH GERD presents for illness. Acute onset 2 days ago +nausea +emesis x 2 +diarrhea +headache +ear ache, bilateral +chest congestion +Tylenol Denies tobacco usage +ill contacts, citing The history is provided by the patient. No card folder was used. Flu Like Symptoms This is a new problem. Episode onset: 2 days ago. The problem occurs constantly. The problem has been gradually worsening. Associated symptoms include chills, congestion, coughing and headaches. Pertinent negatives include no abdominal pain, anorexia, arthralgias, change in bowel habit, chest pain, diaphoresis, fatigue, fever, joint swelling, myalgias, nausea, neck pain, numbness, rash, sore throat, swollen glands, urinary symptoms, vertigo, visual change, vomiting or weakness. Nothing aggravates the symptoms. She has tried nothing for the symptoms. The treatment provided no relief. PAST MEDICAL HISTORY Diagnosis Date Allergic rhinitis, cause unspecified Colovesical fistula 03/2021 surgical repair Cystocele, midline Diverticulitis Generalized osteoarthrosis, unspecified site Migraine with Aura 01/28/2010 Pain in thoracic spine Plantar fascial fibromatosis PAST SURGICAL HISTORY Procedure Laterality Date COLONOSCOPY FLX DX W/COLLJ SPEC WHEN PFRMD 09/05/2021 normal with 10 yr interval LAPAROSCOPIC HEMICOLECTOMY 03/2021 Colovesical fistula secondary to diverticulitis LIG/TRNSXJ FLP TUBE ABDL/VAG APPR UNI/BI Tubal ligation PAST SURGICAL HISTORY OF 06/10/2011 Gall bladder PAST SURGICAL HISTORY OF 07/2018 RPR 1ST INGUN HRNA AGE 7 YRS/> REDUCIBLE 1972 Hernia repair, inguinal right ALLERGIES Clotrimazole, Latex, Naprosyn [Naproxen], Topamax [Topiramate], Welchol [Colesevelam], and Zpak [Azithromycin] MEDICATIONS magnesium oxide (MAG-OX) 400 mg (241.3 mg magnesium) tablet Take 1 tablet by mouth once daily. benzonatate (TESSALON PERLES) 100 mg capsule Take 2 capsules by mouth three times a day as needed. ofloxacin (FLOXIN) 0.3 % otic solution Use 10 Drops in both ears once daily. montelukast (SINGULAIR) 10 mg tablet Take 1 tablet by mouth daily at bedtime. tiZANidine HCl (ZANAFLEX) 2 mg capsule Take 1 capsule by mouth as needed. eletriptan (RELPAX) 20 mg tablet take 1 tablet at onset of headache; if headache returns,may repeat dose after 2 hours. No more than 2 doses within a 24 hour period rOPINIRole (REQUIP) 0.25 mg tablet Take 1 tablet by mouth daily at bedtime. colestipol (COLESTID) 1 gram tablet Take 1 tablet by mouth once daily. As directed (Patient taking differently: Take 1 g by mouth once daily. 1/2 tablet daily) colestipol (COLESTID) 1 gram tablet Take 1 tablet by mouth once daily. magnesium oxide (MAG-OX) 400 mg (241.3 mg magnesium) tablet Take 1 tablet by mouth once daily. albuterol HFA (PROAIR HFA) 90 mcg/actuation inhaler Inhale 2 Puffs as instructed every 4 hours as needed for wheezing/shortness of breath. fluticasone (FLONASE) 50 mcg/actuation nasal spray Use 1 [place] in each nostril once daily. Rinse mouth after use. multivitamin with minerals (HAIR,SKIN AND NAILS ORAL) Take by mouth. RESTASIS 0.05 % ophthalmic emulsion Flaxseed Oil 1,000 mg cap Take 1,000 mg by mouth. omeprazole (PRILOSEC) 20 mg capsule Take 1 capsule by mouth once daily as needed. 1/2 hr before meal. DUPIXENT 300 mg/2 mL injection 300 mg every 2 weeks. desoximetasone (TOPICORT) 0.25 % cream Apply to the worst or most resistant spots of eczematous dermatitis rash selectively on open areas of arms, legs, trunk, and hands//feet bid (twice per day) until clear and then can stop or taper off as able and directed. AVOID face, eyes/eyelids, and deep fold areas. clobetasol [...] day, including to other dry skin ar cetirizine (ZYRTEC) 10 mg tablet Take 1 tablet by mouth once daily. guaiFENesin (MUCINEX) 600 mg 12 hr tablet Take 2 tablets by mouth twice daily. naphazoline-pheniramine eye drops (NAPHCON-A) 0.025-0.3 % ophthalmic solution 1 Drop every 4 hours as needed. ondansetron orally disintegrating (ZOFRAN ODT) 4 mg disintegrating tablet Take 1 tablet by mouth every 6 hours as needed for nausea/vomiting. amoxicillin-clavulanate potassium (AUGMENTIN) 875-125 mg per tablet Take 1 tablet by mouth two times a day for 7 days. FAMILY HISTORY Problem Relation Age of Onset Emphysema Mother smoker Heart Mother HEART MURMUR/CHF Hypertension Father Stroke Father Heart Father CA Prostate Cancer Father prostate COPD Father smoker other (macular degeneration) Father other (Heat Stroke) Maternal Grandmother Emphysema Paternal Grandmother Cancer Daughter non hodgkins lympoma Colon Cancer Maternal Uncle Cancer Paternal Uncle THROAT Social History Tobacco Use Smoking status: Never Smokeless tobacco: Never Vaping Use Vaping Use: Never used Substance Use Topics Alcohol use: Yes Alcohol/week: 2.0 standard drinks of alcohol Types: 2 Cans of Beer (12oz) per week Comment: 2 beers per month Drug use: No Review of Systems Constitutional: Positive for chills. Negative for diaphoresis, fatigue and fever. HENT: Positive for congestion, ear pain, sinus pressure and sinus pain. Negative for sore throat. Eyes: Negative for pain, discharge, redness and itching. Respiratory: Positive for cough. Negative for apnea and chest tightness. Cardiovascular: Negative for chest pain. Gastrointestinal: Negative for abdominal pain, anorexia, change in bowel habit, nausea and vomiting. Musculoskeletal: Negative for arthralgias, joint swelling, myalgias and neck pain. Skin: Negative for color change, pallor and rash. Allergic/Immunologic: Negative for environmental allergies, food allergies and immunocompromised state. Neurological: Positive for headaches. Negative for vertigo, weakness and numbness. Hematological: Negative for adenopathy. Does not bruise/bleed easily. Psychiatric/Behavioral: Negative for agitation and behavioral problems. Objective BP 138/86 Pulse 93 Temp 37.4 C (99.4 F) Resp 20 Wt (!) 147.9 kg (326 lb) LMP 09/11/2015 SpO2 96% BMI 51.06 kg/m Physical Exam Vitals and nursing note reviewed. Constitutional: General: She is not in acute distress. Appearance: Normal appearance. She is normal weight. She is not ill-appearing, toxic-appearing or diaphoretic. HENT: Head: Normocephalic and atraumatic. Right Ear: Ear canal and external ear normal. Left Ear: Ear canal and external ear normal. Ears: Comments: Bilateral TM with mild erythema. Bony structures intact Nose: Nose normal. No congestion or rhinorrhea. Mouth/Throat: Mouth: Mucous membranes are moist. Pharynx: Posterior oropharyngeal erythema present. No oropharyngeal exudate. Eyes: General: Right eye: No discharge. Left eye: No discharge. Extraocular Movements: Extraocular movements intact. Conjunctiva/sclera: Conjunctivae normal. Pupils: Pupils are equal, round, and reactive to light. Cardiovascular: Rate and Rhythm: Normal rate and regular rhythm. Pulses: Normal pulses. Heart sounds: Normal heart sounds. No murmur heard. No friction rub. Pulmonary: Effort: Pulmonary effort is normal. No respiratory distress. Breath sounds: Normal breath sounds. No stridor. No wheezing, rhonchi or rales. Chest: Chest wall: No tenderness. Abdominal: General: Abdomen is flat. There is no distension. Palpations: Abdomen is soft. There is no mass. Tenderness: There is no abdominal tenderness. There is no right CVA tenderness, left CVA tenderness, guarding or rebound. Hernia: No hernia is present. Musculoskeletal: General: No swelling, tenderness, deformity or signs of injury. Normal range of motion. Cervical back: Normal range of motion and neck supple. No rigidity. Right lower leg: No edema. Left lower leg: No edema. Lymphadenopathy: Cervical: Cervical adenopathy present. Skin: General: Skin is warm and dry. Capillary Refill: Capillary refill takes less than 2 seconds. Coloration: Skin is not jaundiced or pale. Findings: No bruising, erythema, lesion or rash. Neurological: General: No focal deficit present. Mental Status: She is alert and oriented to person, place, and time. Cranial Nerves: No cranial nerve deficit. Sensory: No sensory deficit. Motor: No weakness. Coordination: Coordination normal. Gait: Gait normal. Psychiatric: Mood and Affect: Mood normal. Behavior: Behavior normal. Thought Content: Thought content normal. Judgment: Judgment normal. Assessment and Plan ASSESSMENT/PLAN: 1. URI, acute - ICD9: 465.9, ICD10: J06.9 (primary diagnosis) X 2 days ill - Discussed viral etiology and rationale for treatment. - Symptomatic treatment with prn analgesia - Supportive care with fluids and rest - The patient may also use OTC cough and cold meds as needed, warm salt water gargles, throat lozenges and/or OTC throat spray as needed, and nasal saline gtts and suction prn. - Follow up in 3-5 days if symptoms persist or sooner if worsening of symptoms 2. Nausea vomiting and diarrhea - ICD9: 787.91, 787.01, ICD10: R11.2, R19.7 No red flags No abdominal pain Likely attributable to viral RX Zofran 3. Otalgia, bilateral - ICD9: 388.70, ICD10: H92.03 No signs of AOM Will provide Augmentin as safety net Follow up with PCP Ellis Henson APRN.MOLD CLEANER documented in this encounter [facility] 08-03-2023 Note HNO ID: [id number] Author: Theresa Garcia PA-C Service: ? Author Type: Physician Wet Process Assistant Head Miller Type: Progress Notes Filed: 08/03/2023 2:48 PM Note Text: This note was created using [employer]. Subjective Dulce Maria Alvarez is a 58 year old female. HPI Patient presents with sinus pressure and congestion for 2 weeks. She states she has had problems with sinus infections before. She has had a cough. No chest pain or shortness of breath. She has tried multiple qjqr-fug-fjgzaeb medicines. She has been using Flonase. No diarrhea or vomiting. She has felt nauseous from the postnasal drip. Review of Systems HENT: Positive for congestion, postnasal drip, rhinorrhea, sinus pressure and sinus pain. Negative for sore throat. Respiratory: Positive for cough. Negative for shortness of breath and wheezing. Cardiovascular: Negative. Gastrointestinal: Positive for nausea. Negative for abdominal pain, diarrhea and vomiting. Genitourinary: Negative. Musculoskeletal: Negative. Skin: Negative. Neurological: Positive for headaches. All other systems reviewed and are negative. PAST MEDICAL HISTORY Diagnosis Date Allergic rhinitis, cause unspecified Colovesical fistula 03/2021 surgical repair Cystocele, midline Diverticulitis Generalized osteoarthrosis, unspecified site Migraine with Aura 01/28/2010 Pain in thoracic spine Plantar fascial fibromatosis Current Outpatient Medications Medication Sig Dispense Refill montelukast (SINGULAIR) 10 mg tablet Take 1 tablet by mouth daily at bedtime. 90 tablet 3 tiZANidine HCl (ZANAFLEX) 2 mg capsule Take 1 capsule by mouth as needed. 90 capsule 1 eletriptan (RELPAX) 20 mg tablet take 1 tablet at onset of headache; if headache returns,may repeat dose after 2 hours. No more than 2 doses within a 24 hour period 9 tablet 5 rOPINIRole (REQUIP) 0.25 mg tablet Take 1 tablet by mouth daily at bedtime. 90 tablet 3 colestipol (COLESTID) 1 gram tablet Take 1 tablet by mouth once daily. 14 tablet 0 magnesium oxide (MAG-OX) 400 mg (241.3 mg magnesium) tablet Take 1 tablet by mouth once daily. 14 tablet 0 albuterol HFA (PROAIR HFA) 90 mcg/actuation inhaler Inhale 2 Puffs as instructed every 4 hours as needed for wheezing/shortness of breath. 8 g 2 fluticasone (FLONASE) 50 mcg/actuation nasal spray Use 1 [place] in each nostril once daily. Rinse mouth after use. 16 g 5 multivitamin with minerals (HAIR,SKIN AND NAILS ORAL) Take by mouth. RESTASIS 0.05 % ophthalmic emulsion Flaxseed Oil 1,000 mg cap Take 1,000 mg by mouth. omeprazole (PRILOSEC) 20 mg capsule Take 1 capsule by mouth once daily as needed. 1/2 hr before meal. DUPIXENT 300 mg/2 mL injection 300 mg every 2 weeks. desoximetasone (TOPICORT) 0.25 % cream Apply to the worst or most resistant spots of eczematous dermatitis rash selectively on open areas of arms, legs, trunk, and hands//feet bid (twice per day) until clear and then can stop or taper off as able and directed. AVOID face, eyes/eyelids, and deep fold areas. 30 g 3 clobetasol (TEMOVATE) 0.05 % ointment Apply selectively [...] other dry skin ar 15 g 2 cetirizine (ZYRTEC) 10 mg tablet Take 1 tablet by mouth once daily. guaiFENesin (MUCINEX) 600 mg 12 hr tablet Take 2 tablets by mouth twice daily. 60 tablet 0 naphazoline-pheniramine eye drops (NAPHCON-A) 0.025-0.3 % ophthalmic solution 1 Drop every 4 hours as needed. magnesium oxide (MAG-OX) 400 mg (241.3 mg magnesium) tablet Take 1 tablet by mouth once daily. 90 tablet 3 amoxicillin-clavulanate potassium (AUGMENTIN) 875-125 mg per tablet Take 1 tablet by mouth two times a day for 7 days. 14 tablet 0 benzonatate (TESSALON PERLES) 100 mg capsule Take 2 capsules by mouth three times a day as needed. 30 capsule 0 ofloxacin (FLOXIN) 0.3 % otic solution Use 10 Drops in both ears once daily. 10 mL 0 colestipol (COLESTID) 1 gram tablet Take 1 tablet by mouth once daily. As directed (Patient taking differently: Take 1 g by mouth once daily. 1/2 tablet daily) 90 tablet 3 No current facility-administered medications for this visit. PAST SURGICAL HISTORY Procedure Laterality Date COLONOSCOPY FLX DX W/COLLJ SPEC WHEN PFRMD 09/05/2021 normal with 10 yr interval LAPAROSCOPIC HEMICOLECTOMY 03/2021 Colovesical fistula secondary to diverticulitis LIG/TRNSXJ FLP TUBE ABDL/VAG APPR UNI/BI Tubal ligation PAST SURGICAL HISTORY OF 06/10/2011 Gall bladder PAST SURGICAL HISTORY OF 07/2018 RPR 1ST INGUN HRNA AGE 7 YRS/> REDUCIBLE 1972 Hernia repair, inguinal right FAMILY HISTORY Problem Relation Age of Onset Emphysema Mother smoker Heart Mother HEART MURMUR/CHF Hypertension Father Stroke Father Heart F (more content not included)... [facility] 08-03-2023 History of Present illness Narrative This note was created using NoteWriter. Subjective Dulce Maria Alvarez is a 58 year old female. HPI Patient presents with sinus pressure and congestion for 2 weeks. She states she has had problems with sinus infections before. She has had a cough. No chest pain or shortness of breath. She has tried multiple [id number]-tujflmx medicines. She has been using Flonase. No diarrhea or vomiting. She has felt nauseous from the postnasal drip. Review of Systems HENT: Positive for congestion, postnasal drip, rhinorrhea, sinus pressure and sinus pain. Negative for sore throat. Respiratory: Positive for cough. Negative for shortness of breath and wheezing. Cardiovascular: Negative. Gastrointestinal: Positive for nausea. Negative for abdominal pain, diarrhea and vomiting. Genitourinary: Negative. Musculoskeletal: Negative. Skin: Negative. Neurological: Positive for headaches. All other systems reviewed and are negative. PAST MEDICAL HISTORY Diagnosis Date Allergic rhinitis, cause unspecified Colovesical fistula 03/2021 surgical repair Cystocele, midline Diverticulitis Generalized osteoarthrosis, unspecified site Migraine with Aura 01/28/2010 Pain in thoracic spine Plantar fascial fibromatosis Current Outpatient Medications Medication Sig Dispense Refill montelukast (SINGULAIR) 10 mg tablet Take 1 tablet by mouth daily at bedtime. 90 tablet 3 tiZANidine HCl (ZANAFLEX) 2 mg capsule Take 1 capsule by mouth as needed. 90 capsule 1 eletriptan (RELPAX) 20 mg tablet take 1 tablet at onset of headache; if headache returns,may repeat dose after 2 hours. No more than 2 doses within a 24 hour period 9 tablet 5 rOPINIRole (REQUIP) 0.25 mg tablet Take 1 tablet by mouth daily at bedtime. 90 tablet 3 colestipol (COLESTID) 1 gram tablet Take 1 tablet by mouth once daily. 14 tablet 0 magnesium oxide (MAG-OX) 400 mg (241.3 mg magnesium) tablet Take 1 tablet by mouth once daily. 14 tablet 0 albuterol HFA (PROAIR HFA) 90 mcg/actuation inhaler Inhale 2 Puffs as instructed every 4 hours as needed for wheezing/shortness of breath. 8 g 2 fluticasone (FLONASE) 50 mcg/actuation nasal spray Use 1 [place] in each nostril once daily. Rinse mouth after use. 16 g 5 multivitamin with minerals (HAIR,SKIN AND NAILS ORAL) Take by mouth. RESTASIS 0.05 % ophthalmic emulsion Flaxseed Oil 1,000 mg cap Take 1,000 mg by mouth. omeprazole (PRILOSEC) 20 mg capsule Take 1 capsule by mouth once daily as needed. 1/2 hr before meal. DUPIXENT 300 mg/2 mL injection 300 mg every 2 weeks. desoximetasone (TOPICORT) 0.25 % cream Apply to the worst or most resistant spots of eczematous dermatitis rash selectively on open areas of arms, legs, trunk, and hands//feet bid (twice per day) until clear and then can stop or taper off as able and directed. AVOID face, eyes/eyelids, and deep fold areas. 30 g 3 clobetasol (TEMOVATE) 0.05 % ointment Apply selectively [...] other dry skin ar 15 g 2 cetirizine (ZYRTEC) 10 mg tablet Take 1 tablet by mouth once daily. guaiFENesin (MUCINEX) 600 mg 12 hr tablet Take 2 tablets by mouth twice daily. 60 tablet 0 naphazoline-pheniramine eye drops (NAPHCON-A) 0.025-0.3 % ophthalmic solution 1 Drop every 4 hours as needed. magnesium oxide (MAG-OX) 400 mg (241.3 mg magnesium) tablet Take 1 tablet by mouth once daily. 90 tablet 3 amoxicillin-clavulanate potassium (AUGMENTIN) 875-125 mg per tablet Take 1 tablet by mouth two times a day for 7 days. 14 tablet 0 benzonatate (TESSALON PERLES) 100 mg capsule Take 2 capsules by mouth three times a day as needed. 30 capsule 0 ofloxacin (FLOXIN) 0.3 % otic solution Use 10 Drops in both ears once daily. 10 mL 0 colestipol (COLESTID) 1 gram tablet Take 1 tablet by mouth once daily. As directed (Patient taking differently: Take 1 g by mouth once daily. 1/2 tablet daily) 90 tablet 3 No current facility-administered medications for this visit. PAST SURGICAL HISTORY Procedure Laterality Date COLONOSCOPY FLX DX W/COLLJ SPEC WHEN PFRMD 09/05/2021 normal with 10 yr interval LAPAROSCOPIC HEMICOLECTOMY 03/2021 Colovesical fistula secondary to diverticulitis LIG/TRNSXJ FLP TUBE ABDL/VAG APPR UNI/BI Tubal ligation PAST SURGICAL HISTORY OF 06/10/2011 Gall bladder PAST SURGICAL HISTORY OF 07/2018 RPR 1ST INGUN HRNA AGE 5 YRS/> REDUCIBLE 1972 Hernia repair, inguinal right FAMILY HISTORY Problem Relation Age of Onset Emphysema Mother smoker Heart Mother HEART MURMUR/CHF Hypertension Father Stroke Father Heart Father CA Prostate Cancer Father prostate COPD Father smoker other (macular degeneration) Father other (Heat Stroke) Maternal Grandmother Emphysema Paternal Grandmother Cancer Daughter non hodgkins lympoma Colon Cancer Maternal Uncle Cancer Paternal Uncle THROAT Social History Tobacco Use Smoking status: Never Smokeless tobacco: Never Vaping Use Vaping Use: Never used Substance Use Topics Alcohol use: Yes Alcohol/week: 2.0 standard drinks of alcohol Types: 2 Cans of Beer (12oz) per week Comment: 2 beers per month Drug use: No Objective BP 158/72 Pulse 105 Temp 36.8 C (98.3 F) Resp 21 Wt (!) 150.9 kg (332 lb 9.6 oz) LMP 09/11/2015 SpO2 97% BMI 52.09 kg/m Physical Exam Vitals reviewed. Constitutional: Appearance: Normal appearance. HENT: Head: Normocephalic and atraumatic. Right Ear: Tympanic membrane and external ear normal. Left Ear: Tympanic membrane and external ear normal. Ears: Comments: Bilateral external auditory canal swelling and erythema. Nose: Congestion present. Right Sinus: Maxillary sinus tenderness and frontal sinus tenderness present. Left Sinus: Maxillary sinus tenderness and frontal sinus tenderness present. Mouth/Throat: Mouth: Mucous membranes are moist. Pharynx: Oropharynx is clear. Cardiovascular: Rate and Rhythm: Normal rate and regular rhythm. Heart sounds: Normal heart sounds. Pulmonary: Effort: Pulmonary effort is normal. Breath sounds: Normal breath sounds. Musculoskeletal: Cervical back: Neck supple. Lymphadenopathy: Cervical: No cervical adenopathy. Skin: General: Skin is warm and dry. Neurological: Mental Status: She is alert. Assessment and Plan ASSESSMENT/PLAN: 1. Acute otitis externa of both ears, unspecified type - ICD9: 380.10, ICD10: H60.503 (primary diagnosis) Ofloxacin drops sent. 2. Bacterial sinusitis - ICD9: 473.9, 041.9, ICD10: J32.9, B96.89 - Will begin treatment with Augmentin 875 mg PO BID for 7 days - Supportive care with plenty of fluids, rest, and analgesia prn. - Follow up in 3-5 days if symptoms persist or worsen. Theresa Garcia PA-C documented in this encounter [facility] 08-03-2023 Miscellaneous Notes Patient has been identified by name and date of : Yes Patient phones for refill(s): Requested Prescriptions Pending Prescriptions Disp Refills magnesium oxide (MAG-OX) 400 mg (241.3 mg magnesium) tablet 90 tablet 3 Sig: Take 1 tablet by mouth once daily. Refused Prescriptions Disp Refills montelukast (SINGULAIR) 10 mg tablet 90 tablet 3 Sig: Take 1 tablet by mouth daily at bedtime. tiZANidine HCl (ZANAFLEX) 2 mg capsule 90 capsule 1 Sig: Take 1 capsule by mouth as needed. Date of last office visit in primary care: 12/01/2022 Date of next office visit in primary care: Visit date not found Last 2 Encounter Wt Readings: Date: Wt: 02/13/2023 147.1 kg (324 lb 3.2 oz) 12/01/2022 145.5 kg (320 lb 11.2 oz) Please advise. Thank you. REID Drake. documented in this encounter [facility] 05-01-2023 Miscellaneous Notes Last office visit: 12/01/22 Next appointment scheduled: No future appointments scheduled at this time. Patient phones requesting refills as follows: Requested Prescriptions Pending Prescriptions Disp Refills tiZANidine HCl (ZANAFLEX) 2 mg capsule 90 capsule 1 Sig: Take 1 capsule by mouth as needed. Christie Nogueira LPN documented in this encounter [facility] 05-01-2023 Miscellaneous Notes Last office visit: 12/01/22 Next appointment scheduled: No future appointments scheduled at this time. Patient phones requesting refills as follows: Requested Prescriptions Pending Prescriptions Disp Refills montelukast (SINGULAIR) 10 mg tablet 90 tablet 3 Sig: Take 1 tablet by mouth daily at bedtime. Christie Nogueira LPN documented in this encounter [facility] 03-27-2023 Miscellaneous Notes TC to patient as MC message has no been read. Patient states she believes her sinus issues are related to allergies and declines to schedule an appointment at this time. Patient states if she feels she needs to be seen, she will call in and schedule at a later date. Nothing further at this time. REID Drake If patient still having sinus issues she needs seen in the office Laila Pruitt APRN.MARIELLE documented in this encounter [facility] 02-13-2023 Note HNO ID: [id number] Author: Lauryn Phillips APRN.MARIELLE Service: ? Author Type: Nurse Practitioner Type: Progress Notes Filed: 02/13/2023 12:03 PM Note Text: CC: Patient presents with: Head Congestion: Sinus drainage, ST, CARTER x1.5 weeks HPI: Dulce Maria Alvarez is a 57 year old female who presents to the office with complaint of head congestion, cough, nonproductive, sore throat, and sinus symptoms for 1.5 weeks. Symptoms are worsening Associated symptoms includes nasal congestion and facial pain/pressure. Denies fever, nausea, vomiting , and diarrhea. Treatments tried include nothing so far. with no relief of symptoms. Sick contacts: unknown. History of asthma, frequent episodes of bronchitis, chronic bronchitis, bronchiectasis or COPD: No Smoker: No Seasonal/environmental allergies: No The ROS is otherwise negative. The patient's pmh, medications, allergies, and past visits are reviewed. PHYSICAL EXAM: BP 158/94 Pulse 101 Temp 37.1 ?C (98.8 ?F) Resp 20 Wt (!) 147.1 kg (324 lb 3.2 oz) LMP 09/11/2015 SpO2 94% BMI 50.78 kg/m? General appearance: alert, cooperative, pleasant, in no acute distress Head: Normocephalic Eyes: EOM's intact, conjunctiva pink and moist, no icterus, sclera white, non-injected Ears: Right ear: External ear/canal- Normal, TM - clear with good landmarks. Left ear: External ear/canal- Normal, TM - clear with good landmarks Oropharynx:moist without lesions, No erythema, exudates or tonsillar hypertrophy. Heart: Negative. RRR without obvious murmur, gallop, or rubs. No ectopy. Lungs: clear to auscultation, without rales or wheeze, good air exchange PAST SURGICAL HISTORY Procedure Laterality Date COLONOSCOPY FLX DX W/COLLJ SPEC WHEN PFRMD 09/05/2021 normal with 10 yr interval LAPAROSCOPIC HEMICOLECTOMY 03/2021 Colovesical fistula secondary to diverticulitis LIG/TRNSXJ FLP TUBE ABDL/VAG APPR UNI/BI Tubal ligation PAST SURGICAL HISTORY OF 06/10/2011 Gall bladder PAST SURGICAL HISTORY OF 07/2018 RPR 1ST INGUN HRNA AGE 7 YRS/> REDUCIBLE 1972 Hernia repair, inguinal right ASSESSMENT/PLAN: 1. Rhinosinusitis - ICD9: 473.9, ICD10: J31.0, J32.9 - DOXYCYCLINE MONOHYDRATE 100 MG TABLET - BENZONATATE 100 MG CAPSULE Was educated about proper use of medication and supportive therapies. Patient will follow-up if signs and symptoms seem to be getting worse not better. Patient was okay with this care plan. Laurny Phillips APRN.MOLD CLEANER Prescription instructions reviewed with patient as applicable. Potential red flag symptoms discussed with the patient. Reviewed appropriate action plan to take if red flag symptoms occur. Patient agreeable to treatment plan. Lauryn Phillips APRN.MARIELLE [facility] 02-13-2023 History of Present illness Narrative CC: Patient presents with: Head Congestion: Sinus drainage, ST, CARTER x1.5 weeks HPI: Dulce Maria Alvarez is a 57 year old female who presents to the office with complaint of head congestion, cough, nonproductive, sore throat, and sinus symptoms for 1.5 weeks. Symptoms are worsening Associated symptoms includes nasal congestion and facial pain/pressure. Denies fever, nausea, vomiting , and diarrhea. Treatments tried include nothing so far. with no relief of symptoms. Sick contacts: unknown. History of asthma, frequent episodes of bronchitis, chronic bronchitis, bronchiectasis or COPD: No Smoker: No Seasonal/environmental allergies: No The ROS is otherwise negative. The patient's pmh, medications, allergies, and past visits are reviewed. PHYSICAL EXAM: BP 158/94 Pulse 101 Temp 37.1 C (98.8 F) Resp 20 Wt (!) 147.1 kg (324 lb 3.2 oz) LMP 09/11/2015 SpO2 94% BMI 50.78 kg/m General appearance: alert, cooperative, pleasant, in no acute distress Head: Normocephalic Eyes: EOM's intact, conjunctiva pink and moist, no icterus, sclera white, non-injected Ears: Right ear: External ear/canal- Normal, TM - clear with good landmarks. Left ear: External ear/canal- Normal, TM - clear with good landmarks Oropharynx:moist without lesions, No erythema, exudates or tonsillar hypertrophy. Heart: Negative. RRR without obvious murmur, gallop, or rubs. No ectopy. Lungs: clear to auscultation, without rales or wheeze, good air exchange PAST SURGICAL HISTORY Procedure Laterality Date COLONOSCOPY FLX DX W/COLLJ SPEC WHEN PFRMD 09/05/2021 normal with 10 yr interval LAPAROSCOPIC HEMICOLECTOMY 03/2021 Colovesical fistula secondary to diverticulitis LIG/TRNSXJ FLP TUBE ABDL/VAG APPR UNI/BI Tubal ligation PAST SURGICAL HISTORY OF 06/10/2011 Gall bladder PAST SURGICAL HISTORY OF 07/2018 RPR 1ST INGUN HRNA AGE 7 YRS/> REDUCIBLE 1972 Hernia repair, inguinal right ASSESSMENT/PLAN: 1. Rhinosinusitis - ICD9: 473.9, ICD10: J31.0, J32.9 - DOXYCYCLINE MONOHYDRATE 100 MG TABLET - BENZONATATE 100 MG CAPSULE Was educated about proper use of medication and supportive therapies. Patient will follow-up if signs and symptoms seem to be getting worse not better. Patient was okay with this care plan. Lauryn Phillips APRN.MOLD CLEANER Prescription instructions reviewed with patient as applicable. Potential red flag symptoms discussed with the patient. Reviewed appropriate action plan to take if red flag symptoms occur. Patient agreeable to treatment plan. Lauryn Phillips APRN.MARIELLE documented in this encounter [facility] 01-13-2023 Miscellaneous Notes Last office visit: 12/01/22 Next appointment scheduled: No future appointments scheduled at this time. Patient phones requesting refills as follows: Requested Prescriptions Pending Prescriptions Disp Refills tiZANidine HCl (ZANAFLEX) 2 mg capsule 90 capsule 1 Sig: Take 1 capsule by mouth as needed. Please review and advise. Christie Nogueira LPN documented in this encounter [facility] 12-19-2022 Miscellaneous Notes Patient has been identified by name and date of : Yes, Provider Adeline Date 12/19/22 Time 11:13am Patient comment: I would like a 3 month supply I went to see the ortho Dr Pereira today and he recommend I continue to take meloxicam everyday He said that its Arthritis of the thumb joint. Prescription pending if appropriate Requested Prescriptions Pending Prescriptions Disp Refills meloxicam (MOBIC) 15 mg tablet 90 tablet 3 Sig: Take 1 tablet by mouth once daily. for pain. Take with food. Date of last office visit in primary care: 07/15/22 Last 2 Encounter Wt Readings: Date: Wt: 12/01/2022 145.5 kg (320 lb 11.2 oz) 11/03/2022 146.5 kg (323 lb) Please advise. Thank you. Sofia Anderson LPN documented in this encounter [facility] 12-18-2022 Note HNO ID: [id number] Author: Rosibel Masterson RN Service: ? Author Type: ? Type: Progress Notes Filed: 12/18/2022 4:58 PM Note Text: PT ASSESSMENT - CASTING ROOM Dulce Maria presents for Application of brace. Applied rhizo forte brace to Left hand Patient has been instructed in Care and proper application of brace.. Rosibel Masterson RN [facility] 12-18-2022 Note HNO ID: [id number] Author: Rosibel Masterson RN Service: ? Author Type: ? Type: Progress Notes Filed: 12/18/2022 4:58 PM Note Text: Canelo Pereira MD Department of Orthopaedics [facility] [address] [place] [address] Dept: [phone] Dept December 18, 2022 CHIEF COMPLAINT: New Patient and Pain of the Left Wrist HPI Patient referred by Marisabel Robles for L wrist pain. Ongoing for 2 months. No injury. Relieved by meloxicam. 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 She is R hand dominant. Patient was given wrist brace at her PCP's office and is wearing at nighttime only. She has noticed improvement with use of brace. AMB ROOMING INTAKE FLOWSHEET DATA Pain Pain Level: 4 Pain Location: Hand-Left Description: Cramping, Shooting Duration Amount of Time: 2 Duration Units: Months Frequency: Intermittent Intervention/Comfort measure: Medication (meloxicam) Patient presents with: Left Wrist - New Patient, Pain XR completed on 12/01. ASSESSMENT: M25.532, G89.29 Chronic wrist pain, left PLAN: Patient has STT osteoarthritis. Her imaging and exam point directly to this. She is going to try a topical anti-inflammatory and continue with her meloxicam. We will provide her with a brace as well. FOLLOW UP INSTRUCTIONS: As needed Ms. Dulce Maria Alvarez was advised as to contrast therapies and/or to take analgesics/anti-inflammatories as needed and all contraindications were reviewed. OBJECTIVE: Ms. Dulce Maria Alvarez is a pleasant 57 year old in no apparent distress. Gen:LMP 09/11/2015 nl development, morbidly obese , no deformities ENT: Normocephalic, normal hearing, moist mucosa CV: Pulses:Radial= 2+ and symmetric, capillary refill < 2 secs, no peripheral edema/varicosities Skin: no rash, bruising or lesions. Good turgor. Psych: cooperative and appropriate, alert and oriented x 3, good mood and affect. Musculoskeletal: Patient has tenderness directly at the STT joint. No pain at the basal joint of the thumb. No pain with grind testing of the basal joint. No locking catching or clicking of the thumb. Nontender at the A1 lianet site. Median, radial ulnar nerves are intact. IMAGING: IMPRESSION: Degenerative changes in the left wrist as described above. Nail Machine Operator: PSCB Transcribe Date/Time: Dec 03 2022 9:34A Dictated by : KEIKO ALCOCER MD This examination was interpreted and the report reviewed and electronically signed by: KEIKO ALCOCER MD on Dec 03 2022 9:36AM EST Results-Findings * * *Final Report* * * DATE OF EXAM: Dec 01 2022 3:56PM WOX 5270 - XR WRIST 3V PA/LAT/OBL LT / PROCEDURE REASON: multiple diagnoses * * * * Physician Interpretation * * * * EXAM TITLE: XR WRIST 3V PA/LAT/OBL LT EXAM DATE/TIME: 12/01/2022 3:56 PM COMPARISON: None. CLINICAL INDICATION/HISTORY: Chronic wrist pain. TECHNIQUE: PA, lateral and oblique views of left wrist are presented. FINDINGS: No acute fractures or subluxations are noted. Triscaphe joint space narrowing is demonstrated, with mild subchondral bony sclerosis. No obvious osteophyte formation. The mineralization of the bones is normal. There is no significant soft tissue swelling. Supporting Subjective Information Below: Past Medical History: PAST MEDICAL HISTORY Diagnosis Date Allergic rhinitis, cause unspecified Colovesical fistula 03/2021 surgical repair Cystocele, midline Diverticulitis Generalized osteoarthrosis, unspecified site Migraine with Aura 01/28/2010 Pain in thoracic spine Plantar fascial fibromatosis Past Surgical History: PAST SURGICAL HISTORY Procedure Laterality Date COLONOSCOPY FLX DX W/COLLJ SPEC WHEN PFRMD 09/05/2021 normal with 10 yr interval LAPAROSCOPIC HEMICOLECTOMY 03/2021 Colovesical fistula secondary to diverticulitis LIG/TRNSXJ FLP TUBE ABDL/VAG APPR UNI/BI Tubal ligation PAST SURGICAL HISTORY OF 06/10/2011 Gall bladder PAST SURGICAL HISTORY OF 07/2018 RPR 1ST INGUN HRNA AGE 7 YRS/> REDUCIBLE 1972 Hernia repair, inguinal right Family History: FAMILY HISTORY Problem Relation Age of Onset Emphysema Mother smoker Heart Mother HEART MURMUR/CHF Hypertension Father Stroke Father Heart Father CA Prostate Cancer Father prostate COPD Father smoker other (macular degeneration) Father other (Heat Stroke) Maternal Grandmother Emphysema Paternal Grandmother Cancer Daughter non hodgkins lympoma Colon Cancer Maternal Uncle Cancer Paternal Uncle THROAT Social History: Social History Tobacco Use Smoking status: Never Smokeless tobacco: Never Vaping Use Vaping Use: Never used Substance Use Topics Alcohol use: Yes Alcohol/week: 2.0 standard drinks Types: 2 Cans of Beer (12oz) per week Comment: 2 beers per month Drug use: No Medications: Current Outpatient Me (more content not included)... [facility] 12-18-2022 History of Present illness Narrative PT ASSESSMENT - CASTING ROOM Dulce Maria presents for Application of brace. Applied rhizo forte brace to Left hand Patient has been instructed in Care and proper application of brace.. Rosibel Masterson RN Canelo Pereira MD Department of Orthopaedics Orthopaedics [address] [facility] [id number] Dept: [phone] Dept December 18, 2022 CHIEF COMPLAINT: New Patient and Pain of the Left Wrist HPI Patient referred by Marisabel Robles for L wrist pain. Ongoing for 2 months. No injury. Relieved by meloxicam. 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 She is R hand dominant. Patient was given wrist brace at her PCP's office and is wearing at nighttime only. She has noticed improvement with use of brace. AMB ROOMING INTAKE FLOWSHEET DATA Pain Pain Level: 4 Pain Location: Hand-Left Description: Cramping, Shooting Duration Amount of Time: 2 Duration Units: Months Frequency: Intermittent Intervention/Comfort measure: Medication (meloxicam) Patient presents with: Left Wrist - New Patient, Pain XR completed on 12/01. ASSESSMENT: M25.532, G89.29 Chronic wrist pain, left PLAN: Patient has STT osteoarthritis. Her imaging and exam point directly to this. She is going to try a topical anti-inflammatory and continue with her meloxicam. We will provide her with a brace as well. FOLLOW UP INSTRUCTIONS: As needed Ms. Dulce Maria Alvarez was advised as to contrast therapies and/or to take analgesics/anti-inflammatories as needed and all contraindications were reviewed. OBJECTIVE: Ms. Dulce Maria Alvarez is a pleasant 57 year old in no apparent distress. Gen:LMP 09/11/2015 nl development, morbidly obese , no deformities ENT: Normocephalic, normal hearing, moist mucosa CV: Pulses:Radial= 2+ and symmetric, capillary refill < 2 secs, no peripheral edema/varicosities Skin: no rash, bruising or lesions. Good turgor. Psych: cooperative and appropriate, alert and oriented x 3, good mood and affect. Musculoskeletal: Patient has tenderness directly at the STT joint. No pain at the basal joint of the thumb. No pain with grind testing of the basal joint. No locking catching or clicking of the thumb. Nontender at the A1 lianet site. Median, radial ulnar nerves are intact. IMAGING: IMPRESSION: Degenerative changes in the left wrist as described above. Nail Machine Operator: ANA LUISA Transcribe Date/Time: Dec 03 2022 9:34A Dictated by : KEIKO ALCOCER MD This examination was interpreted and the report reviewed and electronically signed by: KEIKO ALCOCER MD on Dec 03 2022 9:36AM EST Results-Findings * * *Final Report* * * DATE OF EXAM: Dec 01 2022 3:56PM WOX 5270 - XR WRIST 3V PA/LAT/OBL LT / PROCEDURE REASON: multiple diagnoses * * * * Physician Interpretation * * * * EXAM TITLE: XR WRIST 3V PA/LAT/OBL LT EXAM DATE/TIME: 12/01/2022 3:56 PM COMPARISON: None. CLINICAL INDICATION/HISTORY: Chronic wrist pain. TECHNIQUE: PA, lateral and oblique views of left wrist are presented. FINDINGS: No acute fractures or subluxations are noted. Triscaphe joint space narrowing is demonstrated, with mild subchondral bony sclerosis. No obvious osteophyte formation. The mineralization of the bones is normal. There is no significant soft tissue swelling. Supporting Subjective Information Below: Past Medical History: PAST MEDICAL HISTORY Diagnosis Date Allergic rhinitis, cause unspecified Colovesical fistula 03/2021 surgical repair Cystocele, midline Diverticulitis Generalized osteoarthrosis, unspecified site Migraine with Aura 01/28/2010 Pain in thoracic spine Plantar fascial fibromatosis Past Surgical History: PAST SURGICAL HISTORY Procedure Laterality Date COLONOSCOPY FLX DX W/COLLJ SPEC WHEN PFRMD 09/05/2021 normal with 10 yr interval LAPAROSCOPIC HEMICOLECTOMY 03/2021 Colovesical fistula secondary to diverticulitis LIG/TRNSXJ FLP TUBE ABDL/VAG APPR UNI/BI Tubal ligation PAST SURGICAL HISTORY OF 06/10/2011 Gall bladder PAST SURGICAL HISTORY OF 07/2018 RPR 1ST INGUN HRNA AGE 7 YRS/> REDUCIBLE 1972 Hernia repair, inguinal right Family History: FAMILY HISTORY Problem Relation Age of Onset Emphysema Mother smoker Heart Mother HEART MURMUR/CHF Hypertension Father Stroke Father Heart Father CA Prostate Cancer Father prostate COPD Father smoker other (macular degeneration) Father other (Heat Stroke) Maternal Grandmother Emphysema Paternal Grandmother Cancer Daughter non hodgkins lympoma Colon Cancer Maternal Uncle Cancer Paternal Uncle THROAT Social History: Social History Tobacco Use Smoking status: Never Smokeless tobacco: Never Vaping Use Vaping Use: Never used Substance Use Topics Alcohol use: Yes Alcohol/week: 2.0 standard drinks Types: 2 Cans of Beer (12oz) per week Comment: 2 beers per month Drug use: No Medications: Current Outpatient Medications Medication Sig meloxicam (MOBIC) 15 mg tablet Take 1 tablet by mouth once daily. for pain. Take with food. eletriptan (RELPAX) 20 mg tablet take 1 tablet at onset of headache; if headache returns,may repeat dose after 2 hours. No more than 2 doses within a 24 hour period rOPINIRole (REQUIP) 0.25 mg tablet Take 1 tablet by mouth daily at bedtime. tiZANidine HCl (ZANAFLEX) 2 mg capsule Take 1 capsule by mouth as needed. colestipol (COLESTID) 1 gram tablet Take 1 tablet by mouth once daily. As directed (Patient taking differently: Take 1 g by mouth once daily. 1/2 tablet daily) magnesium oxide (MAG-OX) 400 mg (241.3 mg magnesium) tablet Take 1 tablet by mouth once daily. montelukast (SINGULAIR) 10 mg tablet Take 1 tablet by mouth daily at bedtime. colestipol (COLESTID) 1 gram tablet Take 1 tablet by mouth once daily. magnesium oxide (MAG-OX) 400 mg (241.3 mg magnesium) tablet Take 1 tablet by mouth once daily. albuterol HFA (PROAIR HFA) 90 mcg/actuation inhaler Inhale 2 Puffs as instructed every 4 hours as needed for wheezing/shortness of breath. fluticasone (FLONASE) 50 mcg/actuation nasal spray Use 1 [place] in each nostril once daily. Rinse mouth after use. multivitamin with minerals (HAIR,SKIN AND NAILS ORAL) Take by mouth. RESTASIS 0.05 % ophthalmic emulsion Flaxseed Oil 1,000 mg cap Take 1,000 mg by mouth. omeprazole (PRILOSEC) 20 mg capsule Take 1 capsule by mouth once daily as needed. 1/2 hr before meal. DUPIXENT 300 mg/2 mL injection 300 mg every 2 weeks. desoximetasone (TOPICORT) 0.25 % cream Apply to the worst or most resistant spots of eczematous dermatitis rash selectively on open areas of arms, legs, trunk, and hands//feet bid (twice per day) until clear and then can stop or taper off as able and directed. AVOID face, eyes/eyelids, and deep fold areas. clobetasol [...] day, including to other dry skin ar cetirizine (ZYRTEC) 10 mg tablet Take 1 tablet by mouth once daily. guaiFENesin (MUCINEX) 600 mg 12 hr tablet Take 2 tablets by mouth twice daily. naphazoline-pheniramine eye drops (NAPHCON-A) 0.025-0.3 % ophthalmic solution 1 Drop every 4 hours as needed. No current facility-administered medications for this visit. Allergies: Clotrimazole, Environmental [Other], Latex, Naprosyn [Naproxen], Topamax [Topiramate], Welchol [Colesevelam], and Zpak [Azithromycin] ROS: General (negative for fatigue, malaise, weight loss/gain) HEENT (negative for headache, earache, recent vision changes, sinus pain, sore throat) Respiratory (no recent shortness of breath, hemoptysis) CV (negative for chest tightness, palpitations) Musculoskeletal (see HPI) Psych (no depression, anxiety) REFERRING PHYSICIAN: Consultation requested by Marisabel Robles for an opinion regarding wrist pain. My final recommendations will be communicated back to the requesting physician by way of shared Medical record or letter to requesting physician via US mail. Marisabel Robles [address] [facility] [address] [address] MD [address] [facility] [address] Canelo Pereira MD documented in this encounter [facility] 12-03-2022 Note Patient Outreach (AC CC) DULCE MARIA ALVAREZ ([id number]) 1965 F Date Time Provider Department 12/03/22 PCP (HISTORICAL) [facility] During your visit today, we recorded the following information about you: Mahsa Carrion 12/03/2022 11:54 AM Signed POPULATION HEALTH NAVIGATION OUTREACH Action/FYI Left vm Patient Identified by Name and : NO Outreach Outcome/Action Unable to reach patient: Left message MyChart message sent Did you use a PCP flex slot to schedule this appointment? No Reason for Outreach Care Gap or Scheduling/Wellness visits Payer: Payor: HUE / Plan: BLUE CARD PPO OOS / Product Type: PPO / Care Gap Reviewed:: Specialty Scheduling Reminder: Reminder note to check Health Maintenance for items below Health Maintenance items due: HEPATITIS B(1 of 3 - 3-dose series) Never done HEPATITIS C SCREENING Never done HIV SCREENING Never done SHINGRIX VACCINE(1 of 2) Never done COVID-19 VACCINE(3 - Booster for Pfizer series) due on 09/20/2021 DEPRESSION ASSESSMENT Never done Navigation Signature: Mahsa Carrion December 03, 2022 11:54 AM Allergies As of Date: 12/03/2022 Noted Allergy Reaction CLOTRIMAZOLE 03/06/2021 9 - Itching environmental [Other] 02/20/2006 Comments: nasal congestion, throat infections LATEX 05/27/2018 2 - Rash NAPROSYN (NAPROXEN) 12/22/2008 Comments: Chest pain TOPAMAX (TOPIRAMATE) 06/12/2015 2 - Rash Comments: Possible allergic rash after on drug for a long period of time WELCHOL (COLESEVELAM) 06/12/2018 14 - Other: See Comments Comments: dizziness and psoriasis (though 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 for pain. Take with food. - eletriptan (RELPAX) 20 mg tablet take 1 tablet at onset of headache; if headache returns,may repeat dose after 2 hours. No more than 2 doses within a 24 hour period - rOPINIRole (REQUIP) 0.25 mg tablet Take 1 tablet by mouth daily at bedtime. - tiZANidine HCl (ZANAFLEX) 2 mg capsule Take 1 capsule by mouth as needed. - colestipol (COLESTID) 1 gram tablet Take 1 tablet by mouth once daily. As directed - magnesium oxide (MAG-OX) 400 mg (241.3 mg magnesium) tablet Take 1 tablet by mouth once daily. - montelukast (SINGULAIR) 10 mg tablet Take 1 tablet by mouth daily at bedtime. - colestipol (COLESTID) 1 gram tablet Take 1 tablet by mouth once daily. - magnesium oxide (MAG-OX) 400 mg (241.3 mg magnesium) tablet Take 1 tablet by mouth once daily. - albuterol HFA (PROAIR HFA) 90 mcg/actuation inhaler Inhale 2 Puffs as instructed every 4 hours as needed for wheezing/shortness of breath. - fluticasone (FLONASE) 50 mcg/actuation nasal spray Use 1 [place] in each nostril once daily. Rinse mouth after use. - multivitamin with minerals (HAIR,SKIN AND NAILS ORAL) Take by mouth. - RESTASIS 0.05 % ophthalmic emulsion - Flaxseed Oil 1,000 mg cap Take 1,000 mg by mouth. - omeprazole (PRILOSEC) 20 mg capsule Take 1 capsule by mouth once daily as needed. 1/2 hr before meal. - DUPIXENT 300 mg/2 mL injection 300 mg every 2 weeks. - desoximetasone (TOPICORT) 0.25 % cream Apply [...] including to other dry skin ar - cetirizine (ZYRTEC) 10 mg tablet Take 1 tablet by mouth once daily. - guaiFENesin (MUCINEX) 600 mg 12 hr tablet Take 2 tablets by mouth twice daily. - naphazoline-pheniramine eye drops (NAPHCON-A) 0.025-0.3 % ophthalmic solution 1 Drop every 4 hours as needed. Meds Comments as of 03/06/2014: Problem List As Of Date 12/03/2022 Noted Resolved SPRAIN CRUCIATE LIG KNEE [S83.509A] 09/02/2005 Allergic rhinitis [J30.9] ABDOMINAL PAIN OTHER SPEC SITE [R10.9] 11/11/2007 CALCANEAL SPUR [M77.30] 08/24/2008 PLANTAR Fasciitis, right [M72.2] 10/27/2008 Migraine with aura [G43.109] 01/28/2010 Pompholyx eczema [L30.1] 04/22/2011 Hand dermatitis [L30.9] 04/22/2011 Pyoderma, unspecified [L08.0] 04/22/2011 Pruritus [L29.9] 04/22/2011 Excoriation [T14.8XXA] 04/22/2011 Cracking skin [L98.9] 04/22/2011 Contact dermatitis and other eczema, due to uns*04/22/2011 Cystocele, midline [ (more content not included)... [facility] 12-03-2022 Note HNO ID: [id number] Author: Mahsa Carrion Service: ? Author Type: ? Type: Progress Notes Filed: 12/03/2022 11:54 AM Note Text: POPULATION HEALTH NAVIGATION OUTREACH Action/FYI Left vm Patient Identified by Name and : NO Outreach Outcome/Action Unable to reach patient: Left message TrackingPointhart message sent Did you use a PCP flex slot to schedule this appointment? No Reason for Outreach Care Gap or Scheduling/Wellness visits Payer: Payor: HUE / Plan: BLUE CARD PPO OOS / Product Type: PPO / Care Gap Reviewed:: Specialty Scheduling Reminder: Reminder note to check Health Maintenance for items below Health Maintenance items due: HEPATITIS B(1 of 3 - 3-dose series) Never done HEPATITIS C SCREENING Never done HIV SCREENING Never done SHINGRIX VACCINE(1 of 2) Never done COVID-19 VACCINE(3 - Booster for Pfizer series) due on 09/20/2021 DEPRESSION ASSESSMENT Never done Navigation Signature: Mahsa Carrion December 03, 2022 11:54 AM [facility] 12-03-2022 History of Present illness Narrative POPULATION HEALTH NAVIGATION OUTREACH Action/FYI Left vm Patient Identified by Name and : NO Outreach Outcome/Action Unable to reach patient: Left message TrackingPointhart message sent Did you use a PCP flex slot to schedule this appointment? No Reason for Outreach Care Gap or Scheduling/Wellness visits Payer: Payor: BUSHRAEM / Plan: BLUE CARD PPO OOS / Product Type: PPO / Care Gap Reviewed:: Specialty Scheduling Reminder: Reminder note to check Health Maintenance for items below Health Maintenance items due: HEPATITIS B(1 of 3 - 3-dose series) Never done HEPATITIS C SCREENING Never done HIV SCREENING Never done SHINGRIX VACCINE(1 of 2) Never done COVID-19 VACCINE(3 - Booster for Pfizer series) due on 09/20/2021 DEPRESSION ASSESSMENT Never done Navigation Signature: Mahsa Carrion December 03, 2022 11:54 AM documented in this encounter [facility] 12-01-2022 Note HNO ID: [id number] Author: RT Tony(R) Service: Nuclear Medicine Author Type: Technologist Type: Progress Notes Filed: 12/01/2022 4:04 PM Note Text: Radiology Service Progress Note PATIENT NAME: Dulce Maria Alvarez DATE OF SERVICE: December 01, 2022 TIME: 3:55 PM PATIENT IDENTITY VERIFICATION COMPLETED USING TWO (2) IDENTIFIERS: Name and Date of confirmed by patient verbally. FALL SCREENING: Has the patient had 2 falls in the last year or 1 fall with injury or currently using an Ambulatory Assistive Device (Walker, Cane, Wheelchair, Crutches, etc.)? No PATIENT GENDER DATA: Female. status: : No status: NO. PATIENT RELEVANT IMPLANT DATA REVIEWED: Not Applicable RADIOLOGY DEPARTMENT: General X-ray: Exam(s) Completed: Upper Extremity X-Ray(s): Wrist, left PERIPHERAL IV DATA: Not applicable SIGNED BY: RT Tony(R) December 01, 2022 3:55 PM [facility] 12-01-2022 Note HNO ID: [id number] Author: Marisabel Robles APRN.BAG MACHINE TENDER Service: ? Author Type: Nurse Specialist Type: Progress Notes Filed: 12/01/2022 4:25 PM Note Text: SUBJECTIVE: HEPATITIS B(1 of 3 - 3-dose series) Never done HEPATITIS C SCREENING Never done HIV SCREENING Never done SHINGRIX VACCINE(1 of 2) Never done COVID-19 VACCINE(3 - Booster for Pfizer series) due on 09/20/2021 DEPRESSION ASSESSMENT Never done HPI Dulce Maria Alvarez is a 57 year old female. PMH significant for ACTIVE PROBLEM LIST Sprain of Cruciate Ligament of Knee Allergic Rhinitis Abdominal Pain, Other Specified Site Calcaneal Spur PLANTAR Fasciitis, right Migraine With Aura Pompholyx Eczema Hand Dermatitis Pyoderma, Unspecified Pruritus Excoriation Cracking Skin Contact Dermatitis and Other Eczema, Due to Unspecified Cause Cystocele, Midline Morbid obesity due to excess calories (HCC)--BMI over 40 Bile Salt-Induced Diarrhea Rls (Restless Legs Syndrome) Environmental and Seasonal Allergies Gerd (Gastroesophageal Reflux Disease) Colovesical Fistula Mild Protein-Calorie Malnutrition (Hcc) S/P Bladder Repair Post-Op Pain Post-Operative State Obesity, Class III, BMI >= 40 Presents today regarding left wrist pain. This is chronic. Worse currently. Notes pain in the medial aspect of her left wrist and into the base of her left thumb. Achy pain can be sharp at times. No injury. Notes using computer can make it worse. Does have to use this for work. 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 No numbness or tingling in her left hand is noted. She uses ibuprofen or Tylenol with some relief. Has used a brace in the past but not recently. Review of Systems Constitutional: Negative. Musculoskeletal: Positive for arthralgias. Objective [facility] 09/11/2015 Physical Exam Vitals and nursing note reviewed. Constitutional: Appearance: Normal appearance. HENT: Head: Normocephalic and atraumatic. Eyes: Conjunctiva/sclera: Conjunctivae normal. Cardiovascular: Rate and Rhythm: Normal rate. Pulmonary: Effort: Pulmonary effort is normal. Musculoskeletal: Left wrist: Tenderness and crepitus present. Normal pulse. Skin: General: Skin is warm and dry. Neurological: General: No focal deficit present. Mental Status: She is alert and oriented to person, place, and time. 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 No more than 2 doses within a 24 hour period rOPINIRole (REQUIP) 0.25 mg tablet Take 1 tablet by mouth daily at bedtime. tiZANidine HCl (ZANAFLEX) 2 mg capsule Take 1 capsule by mouth as needed. colestipol (COLESTID) 1 gram tablet Take 1 tablet by mouth once daily. As directed (Patient taking differently: Take 1 g by mouth once daily. 1/2 tablet daily) magnesium oxide (MAG-OX) 400 mg (241.3 mg magnesium) tablet Take 1 tablet by mouth once daily. montelukast (SINGULAIR) 10 mg tablet Take 1 tablet by mouth daily at bedtime. colestipol (COLESTID) 1 gram tablet Take 1 tablet by mouth once daily. magnesium oxide (MAG-OX) 400 mg (241.3 mg magnesium) tablet Take 1 tablet by mouth once daily. albuterol HFA (PROAIR HFA) 90 mcg/actuation inhaler Inhale 2 Puffs as instructed every 4 hours as needed for wheezing/shortness of breath. fluticasone (FLONASE) 50 mcg/actuation nasal spray Use 1 [place] in each nostril once daily. Rinse mouth after use. multivitamin with minerals (HAIR,SKIN AND NAILS ORAL) Take by mouth. RESTASIS 0.05 % ophthalmic emulsion Flaxseed Oil 1,000 mg cap Take 1,000 mg by mouth. omeprazole (PRILOSEC) 20 mg capsule Take 1 capsule by mouth once daily as needed. 1/2 hr before meal. DUPIXENT 300 mg/2 mL injection 300 mg every 2 weeks. desoximetasone (TOPICORT) 0.25 % cream Apply to the worst or most resistant spots of eczematous dermatitis rash selectively on open areas of arms, legs, trunk, and hands//feet bid (twice per day) until clear and then can stop or taper off as able and directed. AVOID face, eyes/eyelids, and deep fold areas. clobetasol [...] day, including to other dry skin ar cetirizine (ZYRTEC) 10 mg tablet Take 1 ta (more content not included)... [facility] 12-01-2022 History of Present illness Narrative SUBJECTIVE: HEPATITIS B(1 of 3 - 3-dose series) Never done HEPATITIS C SCREENING Never done HIV SCREENING Never done SHINGRIX VACCINE(1 of 2) Never done COVID-19 VACCINE(3 - Booster for Pfizer series) due on 09/20/2021 DEPRESSION ASSESSMENT Never done HPI Dulce Maria Alvarez is a 57 year old female. PMH significant for ACTIVE PROBLEM LIST Sprain of Cruciate Ligament of Knee Allergic Rhinitis Abdominal Pain, Other Specified Site Calcaneal Spur PLANTAR Fasciitis, right Migraine With Aura Pompholyx Eczema Hand Dermatitis Pyoderma, Unspecified Pruritus Excoriation Cracking Skin Contact Dermatitis and Other Eczema, Due to Unspecified Cause Cystocele, Midline Morbid obesity due to excess calories (HCC)--BMI over 40 Bile Salt-Induced Diarrhea Rls (Restless Legs Syndrome) Environmental and Seasonal Allergies Gerd (Gastroesophageal Reflux Disease) Colovesical Fistula Mild Protein-Calorie Malnutrition (Hcc) S/P Bladder Repair Post-Op Pain Post-Operative State Obesity, Class III, BMI >= 40 Presents today regarding left wrist pain. This is chronic. Worse currently. Notes pain in the medial aspect of her left wrist and into the base of her left thumb. Achy pain can be sharp at times. No injury. Notes using computer can make it worse. Does have to use this for work. 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 No numbness or tingling in her left hand is noted. She uses ibuprofen or Tylenol with some relief. Has used a brace in the past but not recently. Review of Systems Constitutional: Negative. Musculoskeletal: Positive for arthralgias. Objective LMP 09/11/2015 Physical Exam Vitals and nursing note reviewed. Constitutional: Appearance: Normal appearance. HENT: Head: Normocephalic and atraumatic. Eyes: Conjunctiva/sclera: Conjunctivae normal. Cardiovascular: Rate and Rhythm: Normal rate. Pulmonary: Effort: Pulmonary effort is normal. Musculoskeletal: Left wrist: Tenderness and crepitus present. Normal pulse. Skin: General: Skin is warm and dry. Neurological: General: No focal deficit present. Mental Status: She is alert and oriented to person, place, and time. 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 No more than 2 doses within a 24 hour period rOPINIRole (REQUIP) 0.25 mg tablet Take 1 tablet by mouth daily at bedtime. tiZANidine HCl (ZANAFLEX) 2 mg capsule Take 1 capsule by mouth as needed. colestipol (COLESTID) 1 gram tablet Take 1 tablet by mouth once daily. As directed (Patient taking differently: Take 1 g by mouth once daily. 1/2 tablet daily) magnesium oxide (MAG-OX) 400 mg (241.3 mg magnesium) tablet Take 1 tablet by mouth once daily. montelukast (SINGULAIR) 10 mg tablet Take 1 tablet by mouth daily at bedtime. colestipol (COLESTID) 1 gram tablet Take 1 tablet by mouth once daily. magnesium oxide (MAG-OX) 400 mg (241.3 mg magnesium) tablet Take 1 tablet by mouth once daily. albuterol HFA (PROAIR HFA) 90 mcg/actuation inhaler Inhale 2 Puffs as instructed every 4 hours as needed for wheezing/shortness of breath. fluticasone (FLONASE) 50 mcg/actuation nasal spray Use 1 [place] in each nostril once daily. Rinse mouth after use. multivitamin with minerals (HAIR,SKIN AND NAILS ORAL) Take by mouth. RESTASIS 0.05 % ophthalmic emulsion Flaxseed Oil 1,000 mg cap Take 1,000 mg by mouth. omeprazole (PRILOSEC) 20 mg capsule Take 1 capsule by mouth once daily as needed. 1/2 hr before meal. DUPIXENT 300 mg/2 mL injection 300 mg every 2 weeks. desoximetasone (TOPICORT) 0.25 % cream Apply to the worst or most resistant spots of eczematous dermatitis rash selectively on open areas of arms, legs, trunk, and hands//feet bid (twice per day) until clear and then can stop or taper off as able and directed. AVOID face, eyes/eyelids, and deep fold areas. clobetasol [...] day, including to other dry skin ar cetirizine (ZYRTEC) 10 mg tablet Take 1 tablet by mouth once daily. guaiFENesin (MUCINEX) 600 mg 12 hr tablet Take 2 tablets by mouth twice daily. naphazoline-pheniramine eye drops (NAPHCON-A) 0.025-0.3 % ophthalmic solution 1 Drop every 4 hours as needed. PAST MEDICAL HISTORY Diagnosis Date Allergic rhinitis, cause unspecified Colovesical fistula 03/2021 surgical repair Cystocele, midline Diverticulitis Generalized osteoarthrosis, unspecified site Migraine with Aura 01/28/2010 Pain in thoracic spine Plantar fascial fibromatosis Social History Tobacco Use Smoking status: Never Smokeless tobacco: Never Vaping Use Vaping Use: Never used Substance Use Topics Alcohol use: Yes Alcohol/week: 2.0 standard drinks Types: 2 Cans of Beer (12oz) per week Comment: 2 beers per month Drug use: No ASSESSMENT/PLAN: 1. Chronic wrist pain, left - ICD9: 719.43, 338.29, ICD10: M25.532, G89.29 Exam and complaints seem most consistent with carpal tunnel. Recommend wearing wrist brace at night for 6 weeks. Meloxicam daily for a week or 2 then as needed. Follow-up with orthopedic provider if not improving with these measures. - XR WRIST GENERAL 3V PA/LAT/OBL LEFT - CONSULT TO ORTHOPAEDICS - MELOXICAM 15 MG TABLET Marisabel Robles APRN.CNS Medical Decision Making: Problems: Low: Acute, uncomplicated illness or injury Data: Unique test(s) ordered: 1 Risk: Moderate: Drug management Medical Decision Making Level: 3 - Low documented in this encounter [facility] 11-03-2022 Note HNO ID: [id number] Author: Nestor Aiken APRN.CNP Service: ? Author Type: Nurse Practitioner Type: Progress Notes Filed: 11/03/2022 5:22 PM Note Text: Subjective HPI HPI Dulce Maria Alvarez is a 57 year old female who presents today for CC of sinus pressure. This started 1.5 weeks ago. Has tried otc medication without relief. Symptoms are worsened by nothing. Risk factors hx of sinus infections. nonsmoker. .Patient presents with: Sinus Problem: Sinus pain and pressure x 1.5 weeks PAST MEDICAL HISTORY Diagnosis Date Allergic rhinitis, cause unspecified Colovesical fistula 03/2021 surgical repair Cystocele, midline Diverticulitis Generalized osteoarthrosis, unspecified site Migraine with Aura 01/28/2010 Pain in thoracic spine Plantar fascial fibromatosis PAST SURGICAL HISTORY Procedure Laterality Date COLONOSCOPY FLX DX W/COLLJ SPEC WHEN PFRMD 09/05/2021 normal with 10 yr interval LAPAROSCOPIC HEMICOLECTOMY 03/2021 Colovesical fistula secondary to diverticulitis LIG/TRNSXJ FLP TUBE ABDL/VAG APPR UNI/BI Tubal ligation PAST SURGICAL HISTORY OF 06/10/2011 Gall bladder PAST SURGICAL HISTORY OF 07/2018 RPR 1ST INGUN HRNA AGE 7 YRS/> REDUCIBLE 1972 Hernia repair, inguinal right ALLERGIES Clotrimazole, Environmental [Other], Latex, Naprosyn [Naproxen], Topamax [Topiramate], Welchol [Colesevelam], and Zpak [Azithromycin] MEDICATIONS eletriptan (RELPAX) 20 mg tablet take 1 tablet at onset of headache; if headache returns,may repeat dose after 2 hours. No more than 2 doses within a 24 hour period rOPINIRole (REQUIP) 0.25 mg tablet Take 1 tablet by mouth daily at bedtime. tiZANidine HCl (ZANAFLEX) 2 mg capsule Take 1 capsule by mouth as needed. colestipol (COLESTID) 1 gram tablet Take 1 tablet by mouth once daily. As directed (Patient taking differently: Take 1 g by mouth once daily. 1/2 tablet daily) magnesium oxide (MAG-OX) 400 mg (241.3 mg magnesium) tablet Take 1 tablet by mouth once daily. montelukast (SINGULAIR) 10 mg tablet Take 1 tablet by mouth daily at bedtime. colestipol (COLESTID) 1 gram tablet Take 1 tablet by mouth once daily. magnesium oxide (MAG-OX) 400 mg (241.3 mg magnesium) tablet Take 1 tablet by mouth once daily. albuterol HFA (PROAIR HFA) 90 mcg/actuation inhaler Inhale 2 Puffs as instructed every 4 hours as needed for wheezing/shortness of breath. fluticasone (FLONASE) 50 mcg/actuation nasal spray Use 1 [place] in each nostril once daily. Rinse mouth after use. multivitamin with minerals (HAIR,SKIN AND NAILS ORAL) Take by mouth. RESTASIS 0.05 % ophthalmic emulsion Flaxseed Oil 1,000 mg cap Take 1,000 mg by mouth. omeprazole (PRILOSEC) 20 mg capsule Take 1 capsule by mouth once daily as needed. 1/2 hr before meal. DUPIXENT 300 mg/2 mL injection 300 mg every 2 weeks. desoximetasone (TOPICORT) 0.25 % cream Apply to the worst or most resistant spots of eczematous dermatitis rash selectively on open areas of arms, legs, trunk, and hands//feet bid (twice per day) until clear and then can stop or taper off as able and directed. AVOID face, eyes/eyelids, and deep fold areas. clobetasol [...] day, including to other dry skin ar cetirizine (ZYRTEC) 10 mg tablet Take 1 tablet by mouth once daily. guaiFENesin (MUCINEX) 600 mg 12 hr tablet Take 2 tablets by mouth twice daily. naphazoline-pheniramine eye drops (NAPHCON-A) 0.025-0.3 % ophthalmic solution 1 Drop every 4 hours as needed. amoxicillin-clavulanic acid (AUGMENTIN) 875-125 mg per tablet Take 1 tablet by mouth twice daily for 10 days. FAMILY HISTORY Problem Relation Age of Onset Emphysema Mother smoker Heart Mother HEART MURMUR/CHF Hypertension Father Stroke Father Heart Father CA Prostate Cancer Father prostate COPD Father smoker other (macular degeneration) Father other (Heat Stroke) Maternal Grandmother Emphysema Paternal Grandmother Cancer Daughter non hodgkins lympoma Colon Cancer Maternal Uncle Cancer Paternal Uncle THROAT Social History Tobacco Use Smoking status: Never Smokeless tobacco: Never Vaping Use Vaping Use: Never used Substance Use Topics Alcohol use: Yes Alcohol/week: 2.0 standard drinks Types: 2 Cans of Beer (12oz) per week Comment: 2 beers per month Drug use: No Review of Systems Constitutional: Negative for fever. HENT: Positive for congestion, ear pain and sinus pain. Negative for nosebleeds and sore throat. Respiratory: Positive for cough. Negative for shortness of breath and wheezing. Cardiovascular: Negative for chest pain. Musculoskeletal: Negative for neck pain. Skin: Negative for itching and rash. Obj (more content not included)... [facility] 11-03-2022 History of Present illness Narrative Subjective HPI HPI Dulce Maria Alvarez is a 57 year old female who presents today for CC of sinus pressure. This started 1.5 weeks ago. Has tried otc medication without relief. Symptoms are worsened by nothing. Risk factors hx of sinus infections. nonsmoker. .Patient presents with: Sinus Problem: Sinus pain and pressure x 1.5 weeks PAST MEDICAL HISTORY Diagnosis Date Allergic rhinitis, cause unspecified Colovesical fistula 03/2021 surgical repair Cystocele, midline Diverticulitis Generalized osteoarthrosis, unspecified site Migraine with Aura 01/28/2010 Pain in thoracic spine Plantar fascial fibromatosis PAST SURGICAL HISTORY Procedure Laterality Date COLONOSCOPY FLX DX W/COLLJ SPEC WHEN PFRMD 09/05/2021 normal with 10 yr interval LAPAROSCOPIC HEMICOLECTOMY 03/2021 Colovesical fistula secondary to diverticulitis LIG/TRNSXJ FLP TUBE ABDL/VAG APPR UNI/BI Tubal ligation PAST SURGICAL HISTORY OF 06/10/2011 Gall bladder PAST SURGICAL HISTORY OF 07/2018 RPR 1ST INGUN HRNA AGE 7 YRS/> REDUCIBLE 1972 Hernia repair, inguinal right ALLERGIES Clotrimazole, Environmental [Other], Latex, Naprosyn [Naproxen], Topamax [Topiramate], Welchol [Colesevelam], and Zpak [Azithromycin] MEDICATIONS eletriptan (RELPAX) 20 mg tablet take 1 tablet at onset of headache; if headache returns,may repeat dose after 2 hours. No more than 2 doses within a 24 hour period rOPINIRole (REQUIP) 0.25 mg tablet Take 1 tablet by mouth daily at bedtime. tiZANidine HCl (ZANAFLEX) 2 mg capsule Take 1 capsule by mouth as needed. colestipol (COLESTID) 1 gram tablet Take 1 tablet by mouth once daily. As directed (Patient taking differently: Take 1 g by mouth once daily. 1/2 tablet daily) magnesium oxide (MAG-OX) 400 mg (241.3 mg magnesium) tablet Take 1 tablet by mouth once daily. montelukast (SINGULAIR) 10 mg tablet Take 1 tablet by mouth daily at bedtime. colestipol (COLESTID) 1 gram tablet Take 1 tablet by mouth once daily. magnesium oxide (MAG-OX) 400 mg (241.3 mg magnesium) tablet Take 1 tablet by mouth once daily. albuterol HFA (PROAIR HFA) 90 mcg/actuation inhaler Inhale 2 Puffs as instructed every 4 hours as needed for wheezing/shortness of breath. fluticasone (FLONASE) 50 mcg/actuation nasal spray Use 1 [place] in each nostril once daily. Rinse mouth after use. multivitamin with minerals (HAIR,SKIN AND NAILS ORAL) Take by mouth. RESTASIS 0.05 % ophthalmic emulsion Flaxseed Oil 1,000 mg cap Take 1,000 mg by mouth. omeprazole (PRILOSEC) 20 mg capsule Take 1 capsule by mouth once daily as needed. 1/2 hr before meal. DUPIXENT 300 mg/2 mL injection 300 mg every 2 weeks. desoximetasone (TOPICORT) 0.25 % cream Apply to the worst or most resistant spots of eczematous dermatitis rash selectively on open areas of arms, legs, trunk, and hands//feet bid (twice per day) until clear and then can stop or taper off as able and directed. AVOID face, eyes/eyelids, and deep fold areas. clobetasol [...] day, including to other dry skin ar cetirizine (ZYRTEC) 10 mg tablet Take 1 tablet by mouth once daily. guaiFENesin (MUCINEX) 600 mg 12 hr tablet Take 2 tablets by mouth twice daily. naphazoline-pheniramine eye drops (NAPHCON-A) 0.025-0.3 % ophthalmic solution 1 Drop every 4 hours as needed. amoxicillin-clavulanic acid (AUGMENTIN) 875-125 mg per tablet Take 1 tablet by mouth twice daily for 10 days. FAMILY HISTORY Problem Relation Age of Onset Emphysema Mother smoker Heart Mother HEART MURMUR/CHF Hypertension Father Stroke Father Heart Father CA Prostate Cancer Father prostate COPD Father smoker other (macular degeneration) Father other (Heat Stroke) Maternal Grandmother Emphysema Paternal Grandmother Cancer Daughter non hodgkins lympoma Colon Cancer Maternal Uncle Cancer Paternal Uncle THROAT Social History Tobacco Use Smoking status: Never Smokeless tobacco: Never Vaping Use Vaping Use: Never used Substance Use Topics Alcohol use: Yes Alcohol/week: 2.0 standard drinks Types: 2 Cans of Beer (12oz) per week Comment: 2 beers per month Drug use: No Review of Systems Constitutional: Negative for fever. HENT: Positive for congestion, ear pain and sinus pain. Negative for nosebleeds and sore throat. Respiratory: Positive for cough. Negative for shortness of breath and wheezing. Cardiovascular: Negative for chest pain. Musculoskeletal: Negative for neck pain. Skin: Negative for itching and rash. Objective Blood pressure 152/88, pulse 91, temperature 36.7 C (98 F), temperature source Tympanic, resp. rate 18, weight (!) 146.5 kg (323 lb), last menstrual period 09/11/2015, SpO2 97 %. Physical Exam Constitutional: General: She is not in acute distress. Appearance: She is not toxic-appearing or diaphoretic. HENT: Head: Normocephalic and atraumatic. Nose: Right Sinus: Frontal sinus tenderness present. Left Sinus: Frontal sinus tenderness present. Cardiovascular: Rate and Rhythm: Normal rate and regular rhythm. Heart sounds: Normal heart sounds, S1 normal and S2 normal. Pulmonary: Effort: Pulmonary effort is normal. Breath sounds: Normal breath sounds. Lymphadenopathy: Cervical: No cervical adenopathy. Right cervical: No superficial cervical adenopathy. Left cervical: No superficial cervical adenopathy. Neurological: Mental Status: She is alert and oriented to person, place, and time. Gait: Gait is intact. ASSESSMENT/PLAN: 1. Bacterial sinusitis - ICD9: 473.9, 041.9, ICD10: J32.9, B96.89 - Will begin treatment with as per antibiotic as written, see orders - Supportive care with plenty of fluids, rest, and analgesia prn. - Follow up in 3-5 days if symptoms persist or worsen. - AMOXICILLIN 875 MG-POTASSIUM CLAVULANATE 125 MG TABLET Nestor Aiken APRN.MARIELLE documented in this encounter [facility] 09-22-2022 Miscellaneous Notes The following approved medication requests have been transmitted electronically. Requested Prescriptions Prescriptions Disp Refills rOPINIRole (REQUIP) 0.25 mg tablet 90 tablet 3 Sig: Take 1 tablet by mouth daily at bedtime. Aidan Lr MD Last OV: 07/15/22 Next OV: N/A documented in this encounter [facility] 09-02-2022 History of Present illness Narrative CC: Patient presents with: Nasal Congestion: cough, headache, sore throat and ear pain x 4 days HPI: Dulce Maria Alvarez is a 57 year old female who presents to the office with complaint of respiratory symptoms, head congestion, cough, nonproductive, sinus symptoms, and ear symptoms for a few days. Symptoms are staying the same. Associated symptoms includes ear pain and ear pressure . Denies fever, nausea, vomiting , and diarrhea. Treatments tried include nothing so far. with no relief of symptoms. Sick contacts: unknown. History of asthma, frequent episodes of bronchitis, chronic bronchitis, bronchiectasis or COPD: No Smoker: No Seasonal/environmental allergies: No The ROS is otherwise negative. The patient's pmh, medications, allergies, and past visits are reviewed. PHYSICAL EXAM: BP 122/80 Pulse 108 Temp 36.9 C (98.5 F) Resp 18 Wt (!) 144.2 kg (318 lb) LMP 11/01/2015 SpO2 94% BMI 52.11 kg/m General appearance: alert, cooperative, pleasant, in no acute distress Head: Normocephalic Eyes: EOM's intact, conjunctiva pink and moist, no icterus, sclera white, non-injected Ears: Right ear: External ear/canal- Normal, TM - erythematous. Left ear: External ear/canal- Normal, TM - erythematous, bulging Oropharynx:moist without lesions, No erythema, exudates or tonsillar hypertrophy. Heart: Negative. RRR without obvious murmur, gallop, or rubs. No ectopy. Lungs: clear to auscultation, without rales or wheeze, good air exchange PAST MEDICAL HISTORY Diagnosis Date Allergic rhinitis, cause unspecified Colovesical fistula 03/2021 Cystocele, midline Diverticulitis Generalized osteoarthrosis, unspecified site Migraine with Aura 01/28/2010 Pain in thoracic spine Plantar fascial fibromatosis PAST SURGICAL HISTORY Procedure Laterality Date COLONOSCOPY FLX DX W/COLLJ SPEC WHEN PFRMD 09/05/2021 LAPAROSCOPIC HEMICOLECTOMY 03/2021 Colovesical fistula secondary to diverticulitis LIG/TRNSXJ FLP TUBE ABDL/VAG APPR UNI/BI Tubal ligation PAST SURGICAL HISTORY OF 06/10/2011 Gall bladder PAST SURGICAL HISTORY OF 07/2018 breast biopsies RPR 1ST INGUN HRNA AGE 7 YRS/> REDUCIBLE 1972 Hernia repair, inguinal right ALLERGIES Clotrimazole, Environmental [Other], Latex, Naprosyn [Naproxen], Topamax [Topiramate], Welchol [Colesevelam], and Zpak [Azithromycin] MEDICATIONS tiZANidine HCl (ZANAFLEX) 2 mg capsule Take 1 capsule by mouth as needed. colestipol (COLESTID) 1 gram tablet Take 1 tablet by mouth once daily. As directed (Patient taking differently: Take 1 g by mouth once daily. 1/2 tablet daily) magnesium oxide (MAG-OX) 400 mg (241.3 mg magnesium) tablet Take 1 tablet by mouth once daily. montelukast (SINGULAIR) 10 mg tablet Take 1 tablet by mouth daily at bedtime. colestipol (COLESTID) 1 gram tablet Take 1 tablet by mouth once daily. magnesium oxide (MAG-OX) 400 mg (241.3 mg magnesium) tablet Take 1 tablet by mouth once daily. rOPINIRole (REQUIP) 0.25 mg tablet Take 1 tablet by mouth daily at bedtime. albuterol HFA (PROAIR HFA) 90 mcg/actuation inhaler Inhale 2 Puffs as instructed every 4 hours as needed for wheezing/shortness of breath. fluticasone (FLONASE) 50 mcg/actuation nasal spray Use 1 [place] in each nostril once daily. Rinse mouth after use. multivitamin with minerals (HAIR,SKIN AND NAILS ORAL) Take by mouth. rizatriptan (MAXALT) 10 mg tablet Take 10 mg by mouth as needed. May repeat in 2 hours if needed RESTASIS 0.05 % ophthalmic emulsion Flaxseed Oil 1,000 mg cap Take 1,000 mg by mouth. omeprazole (PRILOSEC) 20 mg capsule Take 1 capsule by mouth once daily as needed. 1/2 hr before meal. DUPIXENT 300 mg/2 mL injection 300 mg every 2 weeks. desoximetasone (TOPICORT) 0.25 % cream Apply to the worst or most resistant spots of eczematous dermatitis rash selectively on open areas of arms, legs, trunk, and hands//feet bid (twice per day) until clear and then can stop or taper off as able and directed. AVOID face, eyes/eyelids, and deep fold areas. clobetasol [...] day, including to other dry skin ar cetirizine (ZYRTEC) 10 mg tablet Take 1 tablet by mouth once daily. guaiFENesin (MUCINEX) 600 mg 12 hr tablet Take 2 tablets by mouth twice daily. eletriptan (RELPAX) 20 mg tablet take 1 tablet at onset of headache; if headache returns,may repeat dose after 2 hours. No more than 2 doses within a 24 hour period naphazoline-pheniramine eye drops (NAPHCON-A) 0.025-0.3 % ophthalmic solution 1 Drop every 4 hours as needed. amoxicillin (POLYMOX, AMOXIL) 500 mg capsule Take 1 capsule by mouth twice daily for 10 days. FAMILY HISTORY Problem Relation Age of Onset Emphysema Mother Heart Mother HEART MURMUR/CHF Hypertension Father Stroke Father Heart Father CA Prostate Cancer Father prostate COPD Father other (macular degeneration) Father other (Heat Stroke) Maternal Grandmother Emphysema Paternal Grandmother Cancer Daughter non hodgkins lympoma Colon Cancer Maternal Uncle Cancer Paternal Uncle THROAT Heart Brother congenital other (tumor) Sister hysterectomy- baseball size tumor Social History Tobacco Use Smoking status: Never Smokeless tobacco: Never Vaping Use Vaping Use: Never used Substance Use Topics Alcohol use: Yes Alcohol/week: 2.0 standard drinks Types: 2 Cans of Beer (12oz) per week Comment: 2 beers per month Drug use: No ASSESSMENT/PLAN: 1. Acute otitis media, left - ICD9: 382.9, ICD10: H66.92 Oxacillin twice a day for 10 days. Prescription instructions reviewed with patient as applicable. Potential red flag symptoms discussed with the patient. Reviewed appropriate action plan to take if red flag symptoms occur. Patient agreeable to treatment plan. Lauryn Phillips APRN.MARIELLE documented in this encounter [facility] 07-15-2022 History of Present illness Narrative This note was created using Style on Screen. Subjective Dulce Maria Alvarez is a 57 year old female. HISTORY Dulce Maria Alvarez is a 57 year old lady here for yearly exam and follow up appointment. Noted tried [facility] and terrible experience. Meds all local now at [facility]. Doing well on current meds. PAST MEDICAL HISTORY Diagnosis Date Allergic rhinitis, cause unspecified Colovesical fistula 03/2021 Cystocele, midline Diverticulitis Generalized osteoarthrosis, unspecified site Migraine with Aura 01/28/2010 Pain in thoracic spine Plantar fascial fibromatosis Current Outpatient Medications Medication Sig colestipol (COLESTID) 1 gram tablet Take 1 tablet by mouth once daily. As directed (Patient taking differently: Take 1 g by mouth once daily. 1/2 tablet daily) magnesium oxide (MAG-OX) 400 mg (241.3 mg magnesium) tablet Take 1 tablet by mouth once daily. montelukast (SINGULAIR) 10 mg tablet Take 1 tablet by mouth daily at bedtime. magnesium oxide (MAG-OX) 400 mg (241.3 mg magnesium) tablet Take 1 tablet by mouth once daily. tiZANidine HCl (ZANAFLEX) 2 mg capsule Take 1 capsule by mouth as needed. rOPINIRole (REQUIP) 0.25 mg tablet Take 1 tablet by mouth daily at bedtime. albuterol HFA (PROAIR HFA) 90 mcg/actuation inhaler Inhale 2 Puffs as instructed every 4 hours as needed for wheezing/shortness of breath. fluticasone (FLONASE) 50 mcg/actuation nasal spray Use 1 [place] in each nostril once daily. Rinse mouth after use. multivitamin with minerals (HAIR,SKIN AND NAILS ORAL) Take by mouth. rizatriptan (MAXALT) 10 mg tablet Take 10 mg by mouth as needed. May repeat in 2 hours if needed RESTASIS 0.05 % ophthalmic emulsion Flaxseed Oil 1,000 mg cap Take 1,000 mg by mouth. omeprazole (PRILOSEC) 20 mg capsule Take 1 capsule by mouth once daily as needed. 1/2 hr before meal. DUPIXENT 300 mg/2 mL injection 300 mg every 2 weeks. desoximetasone (TOPICORT) 0.25 % cream Apply to the worst or most resistant spots of eczematous dermatitis rash selectively on open areas of arms, legs, trunk, and hands//feet bid (twice per day) until clear and then can stop or taper off as able and directed. AVOID face, eyes/eyelids, and deep fold areas. clobetasol [...] day, including to other dry skin ar cetirizine (ZYRTEC) 10 mg tablet Take 1 tablet by mouth once daily. guaiFENesin (MUCINEX) 600 mg 12 hr tablet Take 2 tablets by mouth twice daily. eletriptan (RELPAX) 20 mg tablet take 1 tablet at onset of headache; if headache returns,may repeat dose after 2 hours. No more than 2 doses within a 24 hour period naphazoline-pheniramine eye drops (NAPHCON-A) 0.025-0.3 % ophthalmic solution 1 Drop every 4 hours as needed. colestipol (COLESTID) 1 gram tablet Take 1 tablet by mouth once daily. No current facility-administered medications for this visit. 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) Zpak [Azithromycin] Other: See Comments Not effective per pt FAMILY HISTORY Problem Relation Age of Onset Emphysema Mother Heart Mother HEART MURMUR/CHF Hypertension Father Stroke Father Heart Father CA Prostate Cancer Father prostate COPD Father other (macular degeneration) Father other (Heat Stroke) Maternal Grandmother Emphysema Paternal Grandmother Cancer Daughter non hodgkins lympoma Colon Cancer Maternal Uncle Cancer Paternal Uncle THROAT Heart Brother congenital other (tumor) Sister hysterectomy- baseball size tumor Social History Tobacco Use Smoking status: Never Smokeless tobacco: Never Vaping Use Vaping Use: Never used Substance Use Topics Alcohol use: Yes Alcohol/week: 2.0 standard drinks Types: 2 Cans of Beer (12oz) per week Comment: 2 beers per month Drug use: No Review of Systems Objective BP 140/82 Pulse 92 Ht 166.4 cm (5' 5.5 ) Wt (!) 140.6 kg (310 lb) LMP 11/01/2015 SpO2 96% BMI 50.80 kg/m Last 5 Encounter Wt Readings: Date: Wt: 07/15/2022 140.6 kg (310 lb) 04/06/2022 140.8 kg (310 lb 6.4 oz) 12/14/2021 138.3 kg (304 lb 12.8 oz) 10/27/2021 137 kg (302 lb) 08/01/2021 137 kg (302 lb) No waist measurement recorded Estimated body mass index is 50.8 kg/m as calculated from the following: Height as of this encounter: 166.4 cm (5' 5.5 ). Weight as of this encounter: 140.6 kg (310 lb). Last 5 Encounter BP Readings: Date: BP: 07/15/2022 140/82 04/06/2022 122/82 12/14/2021 128/82 10/27/2021 148/92 09/05/2021 120/66 Physical Exam Vitals reviewed. Constitutional: Appearance: Normal appearance. She is well-developed. She is obese. HENT: Head: Normocephalic and atraumatic. Right Ear: External ear normal. Left Ear: External ear normal. Nose: Nose normal. Eyes: Conjunctiva/sclera: Conjunctivae normal. Neck: Thyroid: No thyromegaly. Cardiovascular: Rate and Rhythm: Normal rate and regular rhythm. Pulses: Normal pulses. Heart sounds: Normal heart sounds. No murmur heard. No friction rub. No gallop. Pulmonary: Effort: Pulmonary effort is normal. Breath sounds: Normal breath sounds. Abdominal: General: Bowel sounds are normal. There is no distension. Palpations: Abdomen is soft. There is no mass. Tenderness: There is no abdominal tenderness. Musculoskeletal: General: No deformity. Normal range of motion. Lymphadenopathy: Cervical: No cervical adenopathy. Skin: General: Skin is warm and dry. Coloration: Skin is not jaundiced or pale. Findings: No rash. Neurological: General: No focal deficit present. Mental Status: She is alert and oriented to person, place, and time. Cranial Nerves: No cranial nerve deficit. Sensory: No sensory deficit. Motor: No abnormal muscle tone. Coordination: Coordination normal. Deep Tendon Reflexes: Reflexes normal. Psychiatric: Attention and Perception: Attention and perception normal. Mood and Affect: Mood and affect normal. Speech: Speech normal. Behavior: Behavior normal. Thought Content: Thought content normal. Cognition and Memory: Cognition and memory normal. Judgment: Judgment normal. Labs ordered--not yet done. Last year: Component Latest Ref Rng & Units 03/08/2021 03/09/2021 03/10/2021 03/11/2021 WBC 3.70 - 11.00 k/uL 10.41 6.91 5.44 RBC 3.90 - 5.20 m/uL 3.80 (L) 3.73 (L) 3.75 (L) Hemoglobin 11.5 - 15.5 g/dL 11.1 (L) 10.8 (L) 10.9 (L) Hematocrit 36.0 - 46.0 % 33.9 (L) 33.3 (L) 33.7 (L) MCV 80.0 - 100.0 fL 89.2 89.3 89.9 MCH 26.0 - 34.0 pG 29.2 29.0 29.1 MCHC 30.5 - 36.0 g/dL 32.7 32.4 32.3 RDW-CV 11.5 - 15.0 % 13.5 13.6 13.8 Platelet Count 150 - 400 k/uL 275 280 290 MPV 9.0 - 12.7 fL 9.6 9.4 9.5 Neut% % 80.5 Abs Neut (ANC) 1.45 - 7.50 k/uL 8.38 (H) Lymph% % 13.2 Abs Lymph 1.00 - 4.00 k/uL 1.37 [place]% % 6.2 Abs [place] <0.87 k/uL 0.65 Eosin% % 0.0 Abs Eosin <0.46 k/uL <0.03 Baso% % 0.1 Abs Baso <0.11 k/uL <0.03 Nucleated Reds 0 /100 WBC 0.0 Absolute nRBC <0.01 k/uL <0.01 <0.01 <0.01 Diff Type Auto Diff Glucose 74 - 99 mg/dL 106 (H) 108 (H) 82 BUN 7 - 21 mg/dL 7 7 7 Creatinine 0.58 - 0.96 mg/dL 0.60 0.67 0.59 Sodium 136 - 144 mmol/L 140 142 142 Potassium 3.7 - 5.1 mmol/L Unable to assay due to interference from hemolysis. Suggest reorder as clinically . . . 3.9 3.7 Chloride 97 - 105 mmol/L 106 (H) 105 104 CO2 22 - 30 mmol/L 23 27 26 Anion Gap 9 - 18 mmol/L 11 10 12 Calcium 8.5 - 10.2 mg/dL 8.2 (L) 8.7 8.5 eGFR- >60 >60 >60 eGFR-All Other Races . >60 >60 >60 Hemoglobin A1C 4.3 - 5.6 % 6.4 (H) Estimated Average Glucose mg/dL 137 Magnesium 1.7 - 2.3 mg/dL 2.1 Phosphorus 2.7 - 4.8 mg/dL 3.2 Assessment and Plan ASSESSMENT/PLAN: 1. Routine medical exam - ICD9: V70.0, ICD10: Z00.00 (primary diagnosis) - Counseled on healthy diet and regular exercise - Calcium intake with supplements or by diet of 1000 mg/day for under 50, 3869-8335 mg/day for 50+ 2. Migraine with aura and without status migrainosus, not intractable - ICD9: 346.00, ICD10: G43.109 - TIZANIDINE 2 MG CAPSULE 3. Chronic pain of right knee - ICD9: 719.46, 338.29, ICD10: M25.561, G89.29 Further evaluation and treatment as indicated. - XR KNEE GENERAL 4V AP BOTH/PA BOTH/LAT/MERC RIGHT - CONSULT TO ORTHOPAEDICS 4. Encounter for immunization - ICD9: V03.89, ICD10: Z23 - INFLUENZA VACCINE QUADRIVALENT 6 MO - 64 YRS IM Aidan Lr MD documented in this encounter [facility] 07-11-2022 Miscellaneous Notes Patient states that she does not want to use [facility] anymore. She is asking that her medications be sent to [facility]. She is out of singulair now. Orders pended. Please advise. documented in this encounter [facility] 06-24-2022 Miscellaneous Notes See telephone message from 06/24/2022. Refills sent to pharmacies as requesting. Called & spoke to Vianey, she is asking for Dr. Lr to resend all 3 prescriptions to [facility]. She is switching over to [facility]. Patient has been identified by name and date of : Yes Patient phones for refill(s): Requested Prescriptions Pending Prescriptions Disp Refills colestipol (COLESTID) 1 gram tablet 90 tablet 0 Sig: Take 1 tablet by mouth once daily. As directed montelukast (SINGULAIR) 10 mg tablet 90 tablet 3 Sig: Take 1 tablet by mouth daily at bedtime. magnesium oxide (MAG-OX) 400 mg (241.3 mg magnesium) tablet 30 tablet 11 Sig: Take 1 tablet by mouth once daily. Date of last office visit in primary care: 06/17/2021 Yearly: 07/15/2022 Last 2 Encounter Wt Readings: Date: Wt: 04/06/2022 140.8 kg (310 lb 6.4 oz) 12/14/2021 138.3 kg (304 lb 12.8 oz) Previous labs/tests for medication: Blood Counts: WBC (k/uL) Date Value 03/11/2021 5.44 RBC (m/uL) Date Value 03/11/2021 3.75 Hematocrit (%) Date Value 03/11/2021 33.7 Hemoglobin (g/dL) Date Value 03/11/2021 10.9 Platelet Count (k/uL) Date Value 03/11/2021 290 Please advise. Thank you. Aurelia Hadley LPN documented in this encounter [facility] 06-24-2022 Miscellaneous Notes Patient called and message left on identified voicemail that [facility]. Advised patient to give us a call back if she has issues with medication refills. Delfina Medina RN The following approved medication requests have been transmitted electronically. Requested Prescriptions Signed Prescriptions Disp Refills colestipol (COLESTID) 1 gram tablet 90 tablet 3 Sig: Take 1 tablet by mouth once daily. As directed Authorizing Provider: AIDAN LR magnesium oxide (MAG-OX) 400 mg (241.3 mg magnesium) tablet 90 tablet 3 Sig: Take 1 tablet by mouth once daily. Authorizing Provider: AIDAN LR colestipol (COLESTID) 1 gram tablet 14 tablet 0 Sig: Take 1 tablet by mouth once daily. Authorizing Provider: AIDAN LR magnesium oxide (MAG-OX) 400 mg (241.3 mg magnesium) tablet 14 tablet 0 Sig: Take 1 tablet by mouth once daily. Authorizing Provider: AIDAN LR montelukast (SINGULAIR) 10 mg tablet 90 tablet 3 Sig: Take 1 tablet by mouth daily at bedtime. Authorizing Provider: AIDAN LR MD Patient has been identified by name and date of : Yes Patient phones for refill(s): Requested Prescriptions Pending Prescriptions Disp Refills colestipol (COLESTID) 1 gram tablet 90 tablet 3 Sig: Take 1 tablet by mouth once daily. As directed magnesium oxide (MAG-OX) 400 mg (241.3 mg magnesium) tablet 90 tablet 3 Sig: Take 1 tablet by mouth once daily. colestipol (COLESTID) 1 gram tablet 14 tablet 0 Sig: Take 1 tablet by mouth once daily. magnesium oxide (MAG-OX) 400 mg (241.3 mg magnesium) tablet 14 tablet 0 Sig: Take 1 tablet by mouth once daily. montelukast (SINGULAIR) 10 mg tablet 90 tablet 3 Sig: Take 1 tablet by mouth daily at bedtime. Date of last office visit in primary care: 06/17/2021; Future Appt. 07/15/2022 Last 2 Encounter Wt Readings: Date: Wt: 04/06/2022 140.8 kg (310 lb 6.4 oz) 12/14/2021 138.3 kg (304 lb 12.8 oz) Previous labs/tests for medication: Thyroid: TSH (uU/mL) Date Value 03/07/2013 2.260 Diabetes: Hemoglobin A1C (%) Date Value 03/08/2021 6.4 02/03/2018 Test sent to [facility]. Cholesterol: HDL Cholesterol (mg/dL) Date Value 02/11/2016 66 LDL Cholesterol (mg/dL) Date Value 02/11/2016 106 ALT (U/L) Date Value 03/06/2021 33 Non HDL Cholesterol (mg/dL) Date Value 02/11/2016 128 Liver Function: ALT (U/L) Date Value 03/06/2021 33 AST (U/L) Date Value 03/06/2021 25 Please advise. Thank you. Delfina Medina RN documented in this encounter [facility] 06-18-2022 Miscellaneous Notes Sent 06/05 documented in this encounter [facility] 06-05-2022 Miscellaneous Notes Spoke with pt and information listed below given. Pt verbalizes understanding. Pt states she will get fasting lab work done. Lena Mclean LPN The following approved medication requests have been transmitted electronically. Requested Prescriptions Signed Prescriptions Disp Refills tiZANidine HCl (ZANAFLEX) 2 mg capsule 30 capsule 1 Sig: Take 1 capsule by mouth as needed. Authorizing Provider: AIDAN LR colestipol (COLESTID) 1 gram tablet 90 tablet 0 Sig: Take 1 tablet by mouth once daily. As directed Authorizing Provider: AIDAN LR MD Re-ordered labs to do before July appointment --available anytime to do. Will give more refills on meds at that appointment Patient has been identified by name and date of : Yes Patient phones for refill(s): Requested Prescriptions Pending Prescriptions Disp Refills tiZANidine HCl (ZANAFLEX) 2 mg capsule 30 capsule 3 Sig: Take 1 capsule by mouth as needed. colestipol (COLESTID) 1 gram tablet 90 tablet 1 Sig: Take 1 tablet by mouth once daily. As directed Date of last office visit in primary care: 06/17/21 Future visit: 07/15/22 Last 2 Encounter Wt Readings: Date: Wt: 04/06/2022 140.8 kg (310 lb 6.4 oz) 12/14/2021 138.3 kg (304 lb 12.8 oz) Previous labs/tests for medication: Cholesterol: HDL Cholesterol (mg/dL) Date Value 02/11/2016 66 LDL Cholesterol (mg/dL) Date Value 02/11/2016 106 ALT (U/L) Date Value 03/06/2021 33 Non HDL Cholesterol (mg/dL) Date Value 02/11/2016 128 Blood Pressure: BUN (mg/dL) Date Value 03/11/2021 7 Sodium (mmol/L) Date Value 03/11/2021 142 Last 1 Encounter BP Readings: Date: BP: 04/06/2022 122/82 Liver Function: ALT (U/L) Date Value 03/06/2021 33 AST (U/L) Date Value 03/06/2021 25 Please advise. Thank you. Harini Cohen RN documented in this encounter [facility] 04-06-2022 History of Present illness Narrative Subjective HPI Nontoxic-appearing female presents urgent care chief complaint right sided tonsil swollen. Duration of symptoms was today. Associated symptoms swollen right tonsil. Patient denies any significant discomfort. Patient states when she woke up this morning she noticed a funny sensation in back of her throat looked in mirror and noticed her tonsils swollen. Denies any OTC medications. Denies any known sick contacts. Denies any fever body aches chills cough chest pain shortness of breath pleuritic pain hemoptysis nausea vomiting abdominal pain change in bowel or bladder habits. Past medical history prescription medication use allergies reviewed. Denies trismus difficulty swallowing decreased range of motion neck. 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 Cystocele, midline Diverticulitis Generalized osteoarthrosis, unspecified site Migraine with Aura 01/28/2010 Pain in thoracic spine Plantar fascial fibromatosis PAST SURGICAL HISTORY Procedure Laterality Date COLONOSCOPY FLX DX W/COLLJ SPEC WHEN PFRMD 09/05/2021 LAPAROSCOPIC HEMICOLECTOMY 03/2021 Colovesical fistula secondary to diverticulitis LIG/TRNSXJ FLP TUBE ABDL/VAG APPR UNI/BI Tubal ligation PAST SURGICAL HISTORY OF 06/10/2011 Gall bladder PAST SURGICAL HISTORY OF 07/2018 breast biopsies RPR 1ST INGUN HRNA AGE 7 YRS/> REDUCIBLE 1972 Hernia repair, inguinal right ALLERGIES Clotrimazole, Environmental [Other], Latex, Naprosyn [Naproxen], Topamax [Topiramate], Welchol [Colesevelam], and Zpak [Azithromycin] MEDICATIONS montelukast (SINGULAIR) 10 mg tablet Take 1 tablet by mouth daily at bedtime. tiZANidine HCl (ZANAFLEX) 2 mg capsule Take 1 capsule by mouth as needed. magnesium oxide (MAG-OX) 400 mg (241.3 mg magnesium) tablet Take 1 tablet by mouth once daily. rOPINIRole (REQUIP) 0.25 mg tablet Take 1 tablet by mouth daily at bedtime. albuterol HFA (PROAIR HFA) 90 mcg/actuation inhaler Inhale 2 Puffs as instructed every 4 hours as needed for wheezing/shortness of breath. fluticasone (FLONASE) 50 mcg/actuation nasal spray Use 1 [place] in each nostril once daily. Rinse mouth after use. multivitamin with minerals (HAIR,SKIN AND NAILS ORAL) Take by mouth. rizatriptan (MAXALT) 10 mg tablet Take 10 mg by mouth as needed. May repeat in 2 hours if needed RESTASIS 0.05 % ophthalmic emulsion Flaxseed Oil 1,000 mg cap Take 1,000 mg by mouth. colestipol (COLESTID) 1 gram tablet Take 1 tablet by mouth once daily. As directed omeprazole (PRILOSEC) 20 mg capsule Take 1 capsule by mouth once daily as needed. 1/2 hr before meal. DUPIXENT 300 mg/2 mL injection 300 mg every 2 weeks. desoximetasone (TOPICORT) 0.25 % cream Apply to [...] day, including to other dry skin ar cetirizine (ZYRTEC) 10 mg tablet Take 1 tablet by mouth once daily. guaiFENesin (MUCINEX) 600 mg 12 hr tablet Take 2 tablets by mouth twice daily. eletriptan (RELPAX) 20 mg tablet take 1 tablet at onset of headache; if headache returns,may repeat dose after 2 hours. No more than 2 doses within a 24 hour period naphazoline-pheniramine eye drops (VISINE-A) 0.025-0.3 % ophthalmic solution 1 Drop every 4 hours as needed. FAMILY HISTORY Problem Relation Age of Onset Emphysema Mother Heart Mother HEART MURMUR/CHF Hypertension Father Stroke Father Heart Father CA Prostate Cancer Father prostate COPD Father other (macular degeneration) Father other (Heat Stroke) Maternal Grandmother Emphysema Paternal Grandmother Cancer Daughter non hodgkins lympoma Colon Cancer Maternal Uncle Cancer Paternal Uncle THROAT Heart Brother congenital other (tumor) Sister hysterectomy- baseball size tumor Social History Tobacco Use Smoking status: Never Smoker Smokeless tobacco: Never Used Vaping Use Vaping Use: Never used Substance Use Topics Alcohol use: Yes Alcohol/week: 2.0 standard drinks Types: 2 Cans of Beer (12oz) per week Comment: 2 beers per month Drug use: No BP 122/82 Pulse 80 Temp 36.4 C (97.5 F) Resp 21 Wt (!) 140.8 kg (310 lb 6.4 oz) LMP 11/01/2015 SpO2 97% BMI 50.10 kg/m Review of Systems Constitutional: Negative for chills, fever and malaise/fatigue. HENT: Positive for sore throat. Negative for congestion, ear discharge, ear pain and sinus pain. Eyes: Negative for blurred vision, pain, discharge and redness. Respiratory: Negative for cough, hemoptysis, sputum production, shortness of breath, wheezing and stridor. Cardiovascular: Negative for chest pain. Gastrointestinal: Negative for abdominal pain, diarrhea, nausea and vomiting. Musculoskeletal: Negative for myalgias. Skin: Negative for itching and rash. Neurological: Negative for dizziness and headaches. Objective Physical Exam Constitutional: General: She is not in acute distress. Appearance: She is not diaphoretic. HENT: Head: Normocephalic. Nose: Nose normal. Mouth/Throat: Lips: [place]. Mouth: Mucous membranes are moist. Pharynx: Oropharynx is clear. No pharyngeal swelling, oropharyngeal exudate, posterior oropharyngeal erythema or uvula swelling. Tonsils: Tonsillar exudate present. No tonsillar abscesses. 2+ on the right. Eyes: Conjunctiva/sclera: Conjunctivae normal. Pupils: Pupils are equal, round, and reactive to light. Cardiovascular: Rate and Rhythm: Normal rate and regular rhythm. Heart sounds: Normal heart sounds. Pulmonary: Effort: Pulmonary effort is normal. No tachypnea, accessory muscle usage or respiratory distress. Breath sounds: Normal breath sounds. No stridor. No wheezing, rhonchi or rales. Abdominal: Palpations: Abdomen is soft. Tenderness: There is no abdominal tenderness. Musculoskeletal: Cervical back: Normal range of motion and neck supple. No rigidity or tenderness. Lymphadenopathy: Cervical: No cervical adenopathy. Skin: General: Skin is warm and dry. Neurological: Mental Status: She is alert and oriented to person, place, and time. ASSESSMENT/PLAN: 1. Pharyngitis, unspecified etiology - ICD9: 462, ICD10: J02.9 - STREP A MOLECULAR (POC) Strep test negative. Patient diagnosed with pharyngitis. Patient was educated on supportive therapies. Patient will follow up with primary care provider as needed. Patient was instructed to immediately proceed to emergency room for any new, worsening, or symptoms lasting longer than anticipated. The patient's clinical presentation is otherwise unremarkable at this time. Based on exam and clinical finding, the patient is stable for discharge. Plan of care was discussed with patient. Patient verbalizes understanding and agrees to plan of care. This note was generated using fuseSPORT software. It may contain errors in wording, punctuation, or spelling. Gold Mann APRN.MARIELLE documented in this encounter [facility] 03-05-2022 Miscellaneous Notes Okayed Last appt with pcp 06/17/21. Next appt with pcp 07/15/22 Patient has been identified by name and date of : Yes Pending Prescriptions Disp Refills MONTELUKAST 10 MG TABLET 90 tablet 3 Sig: Take 1 tablet by mouth daily at bedtime. OSKAR: No TIZANIDINE 2 MG CAPSULE 30 capsule Sig: Take 1 capsule by mouth as needed. OSKAR: No MAGNESIUM OXIDE 400 MG (241.3 MG MAGNESIUM) TABLET 30 tablet 11 Sig: Take 1 tablet by mouth once daily. OSKAR: No RX INSTRUCTIONS: Patient aware RX will be sent to pharmacy. No need to notify patient. Hope Sarkar Pss documented in this encounter [facility] 01-25-2021 Miscellaneous Notes Care plan complete. IV removed. Patient verbalizes understanding of discharge education. documented in this encounter [facility] 01-25-2021 History of Present illness Narrative COLON & RECTAL SURGERY DAILY PROGRESS NOTE Patient Name: Dulce Maria Alvarez MR #: [id number] Assessment and Plan: 55 y.o. female w/ PMHx asthma, migraine, morbid obesity BMI 50; PSHx remote R inguinal hernia repair (childhood), s/p CCY (2010); presents to [facility] on 01/23 as transfer for diverticulitis with c/f colovesicular fistula CT Flank w/ IV 01/22/21 ([facility]): fistula between sigmoid colon and bladder with mural thickening and air w/in the bladder related to prior diverticulitis Diverticulitis Colovesicular Fistula - Prior diverticulitis in 2014, reportedly perforated, hospitalized, managed with IV Abx, did not require surgical intervention - Reports never having a colonoscopy - Abx: Cipro/Flagyl began 01/23, recommend 10d course Abx - OK to AAT to low fiber - pain/nausea control (PO) - no acute surgical intervention - OSH CT reviewed - Plan for outpatient colonoscopy and elective colectomy - Please have patient follow up with a local GI for colonoscopy no earlier than 6 weeks from today - OK for DC from surgical standpoint if tolerating diet - Will nancie Dean Subjective: No acute events overnight. Pain and nausea controlled. Tolerating diet. Urinating and having loose bowel movements. Objective: Temp: [97.4 F (36.3 C)-98.1 F (36.7 C)] 98.1 F (36.7 C) Heart Rate: [76-84] 79 Resp: [18] 18 BP: (142-152)/(78-81) 150/78 Physical Examination: General: Alert, cooperative, no distress, appears stated age Head: Normocephalic, without obvious abnormality, atraumatic Eyes: PERRL, conjunctiva/corneas clear, EOM's intact Throat: Lips, mucosa, and tongue normal Neck: Supple, symmetrical, trachea midline Lungs: respirations unlabored,normal respiratory effort Cardiovascular: NSR, normotensive Abdomen: Soft, ATTP, no rebound, no rigidity, non peritoneal Extremities: Normal, atraumatic, no cyanosis or edema Skin: Skin color, texture, turgor normal, no rashes or lesions Psych: Mood and affect appropriate [facility] Inpatient Progress Note 01/24/2021 Dulce Maria Alvarez 1965 [id number] Assessment/Plan: Dulce Maria Alvarez is a 55 y.o. female with a history of Migraines, Asthma, and Obesity who presented to [facility] on 01/22/21 from PCP office with abnormal CT A/P which showed diverticulitis with fistula into bladder. She was transferred to [facility] 01/23/2021 for further evaluation. 1. Diverticulitis with Fistula: with LLQ x [address] A/P at [facility] with fistula into bladder. WBC 7.6. Lactic Acid 1.1 at [facility]. IV Cipro/Falgyl initiated on admit. Pain control. Colorectal surgery (Dr. Dean) following recommended cont abx, bowel rest with outpatient colonoscopy and possible olectomy. Cont clears, if pain improved can advance to low fiber. 2. Migraines: per history. Continued home abortive medications, no longer taking prophylactic medications. 3. Asthma: per history. Not in acute exacerbation on admit. Continued home inhalers. 4. Obesity: BMI 50.03 on admit. Lifestyle modifications encouraged. 5. DVT Prophylaxis: subcutaneous lovenox Current living situation: home Expected Disposition: home Estimated discharge date: 01/25 if pain improved Subjective: YOLANDA overnight events per patient, staff. AF, VSS. Pulse ox reviewed. Still with some lower abd pain. Placed on clears. No dysuria. No fevers/chills. Ambulating. No other new complaints. Reviewed with nursing and Floor SW/CM. Physical Exam: BP (!) 152/80 (BP Location: Left arm, Patient Position: Sitting) Pulse 76 Temp 97.4 F (36.3 C) (Oral) Resp 18 Ht 5' 6 Wt (!) 140.6 kg (309 lb 15.5 oz) SpO2 96% BMI 50.03 kg/m General: NAD Eyes: Conjugate gaze. ENT: MMM. Cardiovascular: Regular rate and rhythm. Respiratory: Clear to auscultation bilaterally. Gastrointestinal: Soft, TTP in LLQ. BS+ Musculoskeletal: No cyanosis, no joint edema. Skin: warm, dry Neuro: Alert and oriented x3. No focal deficits. Psych: Mood appropriate. Current Medications: acetaminophen 975 mg Oral Q8H Or acetaminophen 1,000 mg Intravenous Q8H ciprofloxacin 400 mg Intravenous Q12H enoxaparin (LOVENOX) injection 40 mg Subcutaneous BID magnesium oxide 400 mg Oral Daily metroNIDAZOLE 500 mg Intravenous Q8H montelukast 10 mg Oral Nightly Labs, Imaging and Studies reviewed: Results from last 7 days Lab Units 01/23/21 0551 WBC K/mcL 5.85 HGB g/dL 11.6* HCT % 36.1 PLT K/mcL 333 Results from last 7 days Lab Units 01/23/21 0551 SODIUM mmol/L 139 POTASSIUM mmol/L 3.6 CHLORIDE mmol/L 106 BICARB mmol/L 23 BUN mg/dL 10 CREATININE mg/dL 0.50 EGFR mL/min/1.73 m2 111 GLUCOSE mg/dL 130* CALCIUM mg/dL 8.8 COLON & RECTAL SURGERY DAILY PROGRESS NOTE Patient Name: Dulce Maria Alvarez [facility]: [id number] [id number] Assessment and Plan: 55 y.o. female w/ PMHx asthma, migraine, morbid obesity BMI 50; PSHx remote R inguinal hernia repair (childhood), s/p CCY (2010); presents to [facility] on 01/23 as transfer for diverticulitis with c/f colovesicular fistula Diverticulitis Colovesicular Fistula - Prior diverticulitis in 2014, reportedly perforated, hospitalized, managed with IV Abx, did not require surgical intervention - Reports never having a colonoscopy - Abx: Cipro/Flagyl began 01/23, recommend 10d course Abx - NPO/ships; sips of clears from surgery standpoint - Increase IVF - pain/nausea control (IV pain medication) - no acute surgical intervention - hold off on inpatient urology consult for now - will work on obtaining OSH CT scan to review, request sent - Plan for outpatient colonoscopy and elective colectomy - nancie Dean Subjective: No acute events overnight. Having stable abdominal pain in the lower abdomen and R side. Pain is worse when straining to use the restroom. Pain medications do not last long enough. Also having a headache Objective: Temp: [97.4 F (36.3 C)-97.9 F (36.6 C)] 97.9 F (36.6 C) Heart Rate: [79-91] 81 Resp: [14-18] 18 BP: (133-171)/(79-91) 137/79 Physical Examination: General: Alert, cooperative, no distress, appears stated age Head: Normocephalic, without obvious abnormality, atraumatic Eyes: PERRL, conjunctiva/corneas clear, EOM's intact Throat: Lips, mucosa, and tongue normal Neck: Supple, symmetrical, trachea midline Lungs: respirations unlabored,normal respiratory effort Cardiovascular: NSR, normotensive Abdomen: Soft, mild LLQ TTP, no rebound, no rigidity, non peritoneal Extremities: Normal, atraumatic, no cyanosis or edema Skin: Skin color, texture, turgor normal, no rashes or lesions Psych: Mood and affect appropriate Associated attestation - Miguel Dean MD - 01/24/2021 4:20 PM EDT CRS Staff Feeling better. Some increased pain with clears Exam: benign Plan: If feeling better in AM, advance to low fiber and DC home if tolerated Outpatient colonoscopy Surgical planning [facility] Inpatient Progress Note 01/23/2021 Dulce Maria Alvarez 1965 [id number] Assessment/Plan: Dulce Maria Alvarez is a 55 y.o. female with a history of Migraines, Asthma, and Obesity who presented to [facility] on 01/22/21 from PCP office with abnormal CT A/P which showed diverticulitis with fistula into bladder. She was transferred to [facility] 01/23/2021 for further evaluation. 1. Diverticulitis with Fistula: with LLQ x [address] A/P at [facility] with fistula into bladder. WBC 7.6. Lactic Acid 1.1 at [facility]. IV Cipro/Falgyl initiated on admit. Pain control. Colorectal surgery consulted recommended cont abx, bowel rest with outpatient colonoscopy and possible olectomy. 2. Migraines: per history. Continued home abortive medications, no longer taking prophylactic medications. 3. Asthma: per history. Not in acute exacerbation on admit. Continued home inhalers. 4. Obesity: BMI 50.03 on admit. Lifestyle modifications encouraged. 5. DVT Prophylaxis: subcutaneous lovenox Current living situation: home Expected Disposition: home Estimated discharge date: TBD Subjective: New to me. Chart, imaging, labs, vital signs including pulse ox reviewed. at bedside. Prior complicated diverticulitis in 2014 sounds like contained perf that did not require surgery or drainage. Now with several weeks of abd pain found to have diverticulitis and colovesical fistula. She does have dysuria and pneumaturia. Currently doing well. abd pain controlled. No n/v/d. Reviewed with nursing. Physical Exam: BP (!) 171/91 (BP Location: Right arm, Patient Position: Lying) Comment: rn notifiwd Pulse 91 Temp 97.4 F (36.3 C) (Oral) Resp 18 Ht 5' 6 Wt (!) 140.6 kg (309 lb 15.5 oz) SpO2 99% BMI 50.03 kg/m General: NAD Eyes: Conjugate gaze. ENT: MMM. Cardiovascular: Regular rate and rhythm. Respiratory: Clear to auscultation bilaterally. Gastrointestinal: Soft, TTP in LLQ. BS+ Musculoskeletal: No cyanosis, no joint edema. Skin: warm, dry Neuro: Alert and oriented x3. No focal deficits. Psych: Mood appropriate. Current Medications: ciprofloxacin 400 mg Intravenous Q12H enoxaparin (LOVENOX) injection 40 mg Subcutaneous BID magnesium oxide 400 mg Oral Daily metroNIDAZOLE 500 mg Intravenous Q8H montelukast 10 mg Oral Nightly Labs, Imaging and Studies reviewed: Results from last 7 days Lab Units 01/23/21 0551 WBC K/mcL 5.85 HGB g/dL 11.6* HCT % 36.1 PLT K/mcL 333 Results from last 7 days Lab Units 01/23/21 0551 SODIUM mmol/L 139 POTASSIUM mmol/L 3.6 CHLORIDE mmol/L 106 BICARB mmol/L 23 BUN mg/dL 10 CREATININE mg/dL 0.50 EGFR mL/min/1.73 m2 111 GLUCOSE mg/dL 130* CALCIUM mg/dL 8.8 documented in this encounter [facility] 01-23-2021 Consult note Associated Order(s): IP CONSULT TO COLORECTAL SURGERY COLORECTAL SURGERY CONSULT NOTE Patient Name: Dulce Maria Alvarez Admit Date: [id number] MR #: [id number] : 1965 Physicians: Aidan Lr MD (Family); No ref. provider found (referring) Assessment and Plan: 55 yo female, PMHx asthma, migraine, morbid obesity BMI 50; PSHx remote R inguinal hernia repair (childhood), s/p CCY (2010); presents to [facility] on 01/23 as transfer for diverticulitis with c/f colovesicular fistula Diverticulitis Colovesicular Fistula - Prior diverticulitis in 2014, reportedly perforated, hospitalized, managed with IV Abx, did not require surgical intervention - Reports never having a colonoscopy - WBC 5.85, lactate 1.1 - Abdomen soft, mild LLQ TTP, non peritoneal - Abx: Cipro/Flagyl began 01/23, recommend 10d course Abx - NPO/ships; currently no IVF; okay for CLD from surgery standpoint, recommend gentle IVF - pain/nausea control - no acute surgical intervention - hold off on inpatient urology consult for now - will work on obtaining OSH CT scan to review, request sent - dw Dr. Dean History of Present Illness: 55 yo female, PMHx asthma, migraine, morbid obesity BMI 50; PSHx remote R inguinal hernia repair (childhood), s/p CCY (2010); presents to [facility] on 01/23 as transfer for diverticulitis with c/f colovesicular fistula. Pt endorses about 2 weeks of LLQ and suprapubic abdominal pain. Pain worsened with bowel movements and voiding. Endorses hematuria and this morning noted pneumaturia as well. Saw her PCP for this and had an outpatient CT scan done, given finding of diverticulitis & colovesicular fistula, she was recommended to come to hospital. Denies fever/chills, denies chest pain/SOB, denies extremity pain/weakness. Report she had prior diverticulitis in 2014, was hospitalized at that time for perforation, mangaed with IV Abx and did not require surgical intervention. Reports she did not have a post-diverticulitis Cscope at that time, reports she's never had a colonoscopy. Endorses family h/o diverticulitis in her father; denies known family h/o colon cancer. History: Past Medical History: Diagnosis Date Asthma Migraines Past Surgical History: Procedure Laterality Date CHOLECYSTECTOMY 2010 HERNIA REPAIR INGUINAL OPEN Right Family History Problem Relation Age of Onset Heart disease Mother Heart disease Father Hypertension Father Social History Socioeconomic History Marital status: Spouse name: Not on file Number of children: Not on file Years of education: Not on file Highest education level: Not on file Occupational History Not on file Social Needs Financial resource strain: Not on file Food insecurity Worry: Not on file Inability: Not on file Transportation needs Medical: Not on file Non-medical: Not on file Tobacco Use Smoking status: Not on file Substance and Sexual Activity Alcohol use: Not on file Drug use: Not on file Sexual activity: Not on file Lifestyle Physical activity Days per week: Not on file Minutes per session: Not on file Stress: Not on file Relationships Social connections Talks on phone: Not on file Gets together: Not on file Attends confucianism service: Not on file Active member of club or organization: Not on file Attends meetings of clubs or organizations: Not on file Relationship status: Not on file Other Topics Concern Not on file Social History Narrative Not on file Allergy Information: I have reviewed the patient's allergies. Patient has no allergy information on record. Home Medications: Outpatient Medications as of 01/23/2021 Medication Sig albuterol 90 mcg/actuation inhaler Inhale 2 puffs every 4 (four) hours as needed . cetirizine (ZYRTEC) 10 MG tablet Take 10 mg by mouth daily . colestipoL (COLESTID) 1 gram tablet Take 1 g by mouth daily . eletriptan (RELPAX) 20 MG tablet Take 20 mg by mouth as needed Take 2 tablet at onset of headache; if headache returns, may repeat dose after 2 hours. No more than 2 doses within 24 hour period. . magnesium oxide (MAG-OX) 400 mg (241.3 mg magnesium) tablet Take 1 tablet by mouth daily . montelukast (SINGULAIR) 10 mg tablet Take 10 mg by mouth every night at bedtime . tiZANidine (ZANAFLEX) 2 MG capsule Take 2 mg by mouth nightly . Review of Systems: The following system(s) were reviewed and pertinent findings noted: Constitutional:No fever, no weight loss Eyes:No diplopia ENT:No sinus drainage CV:No chest pain. No ankle swelling Resp:No dyspnea. No wheezing GI: endorses lower abdominal pain :No dysuria Neuro:No headache Integumentary:No skin rash MuscSkel:No arthralgias Endo:No polyuria Heme/lymphatic:No apparent lymphadenopathy Physical Examination: Vital Signs: BP 136/80 (BP Location: Right arm, Patient Position: Lying) Pulse 82 Temp 97.8 F (36.6 C) (Oral) Resp 14 Ht 5' 6 Wt (!) 140.6 kg (309 lb 15.5 oz) SpO2 95% BMI 50.03 kg/m General: Alert, cooperative, no distress, appears stated age Head: Normocephalic, without obvious abnormality, atraumatic Eyes: PERRL, conjunctiva/corneas clear, EOM's intact Throat: Lips, mucosa, and tongue normal Neck: Supple, symmetrical, trachea midline Lungs: respirations unlabored,normal respiratory effort Cardiovascular: NSR, normotensive Abdomen: Soft, mild LLQ TTP, no rebound, no rigidity, non peritoneal Extremities: Normal, atraumatic, no cyanosis or edema Skin: Skin color, texture, turgor normal, no rashes or lesions Psych: Mood and affect appropriate Laboratory and Additional Data Reviewed - Melita Trevizo MD General Surgery, PGY3 Associated attestation - Miguel Dean MD - 01/23/2021 12:10 PM EDT CRS Staff CRS STAFF I have personally seen and examined this patient and participated in the umana components of this encounter. I discussed the management of this case with the resident and independently confirmed the findings and plan of care as documented. I have made necessary additions or changes to the note to reflect my direct input. Dulce Maria Alvarez is a 55 y.o. y/o female presenting with suprapubic and left lower quadrant pain and a CT scan from an outside hospital reportedly read as diverticulitis with evidence of a colovesical fistula. The patient endorses dysuria and pneumaturia and had been treated 2 weeks ago for UTI. She denies fevers and chills and was evaluated in outside hospital. Her white blood cell count was normal. She reports a episode of uncomplicated diverticulitis in 2014 with a reported microperforation . No follow-up colonoscopy was performed. The patient has had no episodes of diverticulitis since. She has a body mass index of greater than 50. Examination reveals her abdomen to be soft and minimally tender. She is afebrile. White blood cell count is normal. 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 BMI greater than 50. Plan: 1. IV antibiotics 2. Bowel rest with no more than sips of clears until pain is improved 3. Outpatient colonoscopy 4. Elective colectomy This plan was discussed with Mrs. Alvarez and her at the bedside. Jermaine COMPLEX DISCHARGE Date: 01/23/2021 Time: 6:20 AM Patient Name: Dulce Maria Alvarez Date of : 1965 Sex: Female Pt lives in private residence with her . Confirmed PCP, insurance, and pharmacy at bedside with patient. Patient states her is able to assist with discharge needs. Will continue to follow. Living Arrangements: Spouse/significant other Caregiver Identified: No Support Systems: Spouse/significant other Assistance Needed: no Type of Residence: Private residence Prior to Admission Home Care Services: No Patient expects to be discharged to:: home Does the patient need discharge transport arranged?: No Current Home Equipment: None documented in this encounter [facility] 01-23-2021 History and physical note [facility] History and Physical Note 01/23/21 Dulce Maria Alvarez 1965 [id number] Assessment/Plan: Dulce Maria Alvarez is a 55 y.o. female with a history of Migraines, Asthma, and Obesity who presented to [facility] on 01/22/21 from PCP office with abnormal CT A/P which showed diverticulitis with fistula into bladder. She was transferred to [facility] 01/23/2021 for further evaluation. 1. Diverticulitis with Fistula: with LLQ x [address] A/P at [facility] with fistula into bladder. WBC 7.6. Lactic Acid 1.1 at [facility]. IV Cipro/Falgyl initiated on admit. Pain control. Colorectal surgery consulted. 2. Migraines: per history. Continued home abortive medications, no longer taking prophylactic medications. 3. Asthma: per history. Not in acute exacerbation on admit. Continued home inhalers. 4. Obesity: BMI 50.03 on admit. Lifestyle modifications encouraged. 5. DVT Prophylaxis: subcutaneous lovenox Current living situation: home Expected Disposition: home Estimated discharge date: TBD Chief Complaint: LLQ pain/diverticulitis History of Present Illness: Dulce Maria Alvarez is a 55 y.o. female with a history of Migraines, Asthma, and Obesity who presented to [facility] on 01/22/21 from PCP office with abnormal CT A/P which showed diverticulitis with fistula into bladder. She was transferred to [facility] 01/23/2021 for further evaluation. Patient states that she has had intermittent LLQ pain for about 2 weeks now. She reports that sometimes the pain will get very severe for a brief period of time so she thought she should go get it looked at. She reports that she went to her PCP who ordered for her to have a CT done as an outpatient which she did yesterday morning. She states that her PCP called her and told her to come to the ED because she had diverticulitis. She states that she had diverticulitis once in the past in 2014 which she did not require surgical intervention for. She states that she has not had any diarrhea or blood in the stool that she has noticed. She rates her current pain a 4-5/10. She endorses a history of migraines and mild asthma. She denies nausea/vomiting, fever/chills, chest pain, SOB. ROS: 10 systems were reviewed and negative, except as noted above. Past Medical, Surgical, Social, Family History: Past Medical History: Diagnosis Date Asthma Migraines Past Surgical History: Procedure Laterality Date CHOLECYSTECTOMY 2011 HERNIA REPAIR INGUINAL OPEN Right Social History Socioeconomic History Marital status: Spouse name: Not on file Number of children: Not on file Years of education: Not on file Highest education level: Not on file Occupational History Not on file Social Needs Financial resource strain: Not on file Food insecurity Worry: Not on file Inability: Not on file Transportation needs Medical: Not on file Non-medical: Not on file Tobacco Use Smoking status: Not on file Substance and Sexual Activity Alcohol use: Not on file Drug use: Not on file Sexual activity: Not on file Lifestyle Physical activity Days per week: Not on file Minutes per session: Not on file Stress: Not on file Relationships Social connections Talks on phone: Not on file Gets together: Not on file Attends confucianism service: Not on file Active member of club or organization: Not on file Attends meetings of clubs or organizations: Not on file Relationship status: Not on file Other Topics Concern Not on file Social History Narrative Not on file Family History Problem Relation Age of Onset Heart disease Mother Heart disease Father Hypertension Father Home Medications: Outpatient Medications as of 01/23/2021 Medication Sig albuterol 90 mcg/actuation inhaler Inhale 2 puffs every 4 (four) hours as needed . cetirizine (ZYRTEC) 10 MG tablet Take 10 mg by mouth daily . colestipoL (COLESTID) 1 gram tablet Take 1 g by mouth daily . eletriptan (RELPAX) 20 MG tablet Take 20 mg by mouth as needed Take 2 tablet at onset of headache; if headache returns, may repeat dose after 2 hours. No more than 2 doses within 24 hour period. . magnesium oxide (MAG-OX) 400 mg (241.3 mg magnesium) tablet Take 1 tablet by mouth daily . montelukast (SINGULAIR) 10 mg tablet Take 10 mg by mouth every night at bedtime . tiZANidine (ZANAFLEX) 2 MG capsule Take 2 mg by mouth nightly . Physical Exam: BP (!) 152/85 (BP Location: Left arm, Patient Position: Sitting) Pulse 81 Temp 98 F (36.7 C) (Oral) Resp 16 Ht 5' 6 Wt (!) 140.6 kg (309 lb 15.5 oz) SpO2 95% BMI 50.03 kg/m General: NAD Eyes: Conjugate gaze. ENT: MMM. Cardiovascular: Regular rate and rhythm. Respiratory: Clear to auscultation bilaterally. Gastrointestinal: Soft, TTP in LLQ. BS+ Musculoskeletal: No cyanosis, no joint edema. Skin: warm, dry Neuro: Alert and oriented x3. No focal deficits. Psych: Mood appropriate. Labs, Imaging, and Studies reviewed: Invalid input(s): MAG JOSE FRANCISCO Associated attestation - Jie Polo DO - 01/23/2021 4:56 AM EDT I have seen and examined the patient independently of Marisol Cordova PA-C. Labs, imaging studies, and notes have been reviewed. Briefly, patient presented as a transfer from [facility] d/t concern for acute diverticulitis with associated colovesical fistula. Patient reported LLQ and suprapubic pain for about 2 weeks [employer], worse with defecation and urination. Has had some gross hematuria as well as cloudy urine, no pneumaturia reported. Only reports having had one episode of diverticulitis prior to this in 2014. On exam, patient is awake and alert, in NAD. Heart RRR, no murmur. Lungs CTA, breathing non labored. Abdomen soft, non distended, TTP over the suprapubic and LLQ but mild, no guarding or rigidity. Bowel sounds regular. No LE edema B/L. Moving all extremities independently. I agree with the assessment and plan with the following additions/summarization: Acute diverticulitis with colovesical fistula: agree with IV abx with cipro and flagyl. Abdominal exam non acute on admit. Colorectal surgery consulted Gross hematuria: likely related to bladder inflammation from her fistula. Will need ongoing monitoring for resolution, consider urology eval as outpatient pending colorectal recs Morbid obesity: BMI on admit 50.03 Agree with remainder of plan as outlined belowdocumented in this encounter [facility] 01-23-2021 Emergency department Note Patient transported to [place] by [facility], report received at 0124. Receiving unit notified of patient's ETA. Vital signs: BP 158/89, HR 97, RR 16, Pulse Ox 96% on RA . Chief complaint of abd pain. Patient does have patent IV access. Patient was not on gambling monitor during transport. Patient will be transported to room 5023 on arrival. documented in this encounter [facility] Migraine with aura and without status migrainosus, not intractable Migraine with aura, without mention of intractable migraine without mention of status migrainosus [facility] Ph[facility]itis, unspecified etiology- Primary [facility] Diagnosis Elevated glucose- Primary Other abnormal glucose Migraine with aura and without status migrainosus, not intractable Migraine with aura, without mention of intractable migraine without mention of status migrainosus Bile salt-induced diarrhea Other specified intestinal malabsorption Encounter for long-term current use of medication Anemia, unspecified type [facility] Diagnosis Bile salt-induced diarrhea Other specified intestinal malabsorption [facility] Diagnosis Encounter for screening mammogram for breast cancer [facility] Diagnosis Bile salt-induced diarrhea Other specified intestinal malabsorption Migraine with aura and without status migrainosus, not intractable Migraine with aura, without mention of intractable migraine without mention of status migrainosus [facility]* Diagnosis Migraine with aura and without status migrainosus, not intractable Migraine with aura, without mention of intractable migraine without mention of status migrainosus Bile salt-induced diarrhea Other specified intestinal malabsorption [facility] Diagnosis Bile salt-induced diarrhea Other specified intestinal malabsorption Migraine with aura and without status migrainosus, not intractable Migraine with aura, without mention of intractable migraine without mention of status migrainosus [facility] [place] [facility]* Diagnosis Routine medical exam- Primary Routine general medical examination at a health care facility Migraine with aura and without status migrainosus, not intractable Migraine with aura, without mention of intractable migraine without mention of status migrainosus Chronic pain of right knee Encounter for immunization Need for other specified prophylactic vaccination against single bacterial disease [facility] [place] [facility]* Diagnosis Acute otitis media, left- Primary Unspecified otitis media [facility] [place] [facility]* Diagnosis RLS (restless legs syndrome) Restless legs syndrome (RLS) [facility] [place] [facility]* Diagnosis Migraine with aura and without status migrainosus, not intractable Migraine with aura, without mention of intractable migraine without mention of status migrainosus [facility] [place] [facility]* Diagnosis Bacterial sinusitis- Primary Unspecified sinusitis (chronic) [facility]* Diagnosis Chronic wrist pain, left- Primary [facility] [place] [facility]* Diagnosis Chronic wrist pain, left documented [facility] [place] [facility]* Diagnosis Chronic wrist pain, left documented [facility] [place] [facility]* Diagnosis Migraine with aura and without status migrainosus, not intractable Migraine with aura, without mention of intractable migraine without mention of status migrainosus documented [facility] [place] [facility]* Diagnosis Rhinosinusitis- Primary Unspecified sinusitis (chronic) documented [facility] [place] [facility]* Diagnosis Migraine with aura and without status migrainosus, not intractable Migraine with aura, without mention of intractable migraine without mention of status migrainosus [facility] [place] [facility]* Diagnosis Acute otitis externa of both ears, unspecified type- Primary Bacterial sinusitis Unspecified sinusitis (chronic) documented in this encounter [facility] note* Diagnosis URI, acute- Primary Acute upper respiratory infections of unspecified site Nausea vomiting and diarrhea Diarrhea Otalgia, bilateral [facility] [place] [facility] Diagnosis Encounter for screening mammogram for breast cancer documented in this encounter [facility] for referral (narrative)* Diagnostic Procedure Only (Routine) - Pending Review Specialty Diagnoses / Procedures Referred By Sonia perales Referred To Contact BR IMAGING Diagnoses Encounter for screening mammogram for breast cancer Procedures LISE SCREENING SCREENING MAMMOGRAPHY BI 2-VIEW BREAST INC Aidan Lobo MD [address] [place] [address] [facility] [address] [place] [address] Referral ID Status Reason Start Date Expiration Date Visits Requested Visits Authorized [id number] Pending Review Auto-Generat ed Referral 06/18/2022 07/18/2023 1 1 [facility] Diagnostic Procedure Only (Routine) - Pending Review Specialty Diagnoses / Procedures Referred By Sonia perales Referred To Contact BR IMAGING Diagnoses Encounter for screening mammogram for breast cancer Procedures LISE SCREENING SCREENING MAMMOGRAPHY BI 2-VIEW BREAST INC Aidan Lobo MD [address] [place] [address] [facility] [address] [place] [address] Referral ID Status Reason Start Date Expiration Date Visits Requested Visits Authorized [id number] Pending Review Auto-Generat ed Referral 10/14/2023 11/12/2024 1 1 [facility] Advance Directives No Advanced Directives Records FoundDocuments on File Type Date Recorded 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 Advance Directives and Livin g Will 01/23/2021 2:36 AM Latest Code Status on File Code Status Date Activated Date Inactivated Comments Full Code 01/23/2021 2:34 AM 01/25/2021 12:26 PM Documents on File Type Date Recorded 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 Advance Directive(s) 09/05/2021 7:10 AM Advance Directive(s) 08/01/2021 1:32 PM Advance Directive(s) 02/15/2021 2:36 PM Summary Purpose Family History No Family History Records FoundNo Family History Records Found Reason for Referral Specialty Diagnoses / Procedures Referred By Sonia perales Referred To Contact Orthopedics Diagnoses Chronic pain of right knee Procedures CONSULT TO ORTHOPAEDICS OFFICE/OUTPATIENT [facility] 60-74 MINUTES Aidan Lr MD [address] [place] [address] Referral ID Status Reason Start Date Expiration Date Visits Requested Visits Authorized [id number] Authorized PCP Requested Referral 07/15/2023 1 1 Specialty Diagnoses / Procedures Referred By Contac t Referred To Contact XR IMAGING Diagnoses Chronic pain of right knee Procedures XR KNEE GENERAL 4V AP BOTH/PA BOTH/LAT/MERC RIGHT RADIOLOGIC EXAM KNEE COMPLETE 4/MORE VIEWS Aidan Lr MD [address] [place] [address] Xr Imaging Referral ID Status Reason Start Date Expiration Date V isits Requested Visits Authorized [id number] Closed Auto-Generate d Referral 07/15/2022 08/14/2023 1 1 Specialty Diagnoses / Procedures Referred By Contac t Referred To Contact Orthopedics Diagnoses Chronic wrist pain, left Procedures CONSULT TO ORTHOPAEDICS OFFICE/OUTPATIENT [facility] 60-74 MINUTES Marisabel Robles, CAR FERRY CAPTAIN.BAG MACHINE TENDER [address] [place] [address] Referral ID Status Reason Start Date Expiration Date Visits Requested Visits Authorized [id number] Authorized PCP Requested Referral 12/01/2022 12/01/2023 1 1 Specialty Diagnoses / Procedures Referred By Contac t Referred To Contact XR IMAGING Diagnoses Chronic wrist pain, left Procedures XR WRIST GENERAL 3V PA/LAT/OBL LEFT RADEX WRIST COMPLETE MINIMUM 3 VIEWS Marisabel Robles, CAR FERRY CAPTAIN.BAG MACHINE TENDER [address] [place] [address] Xr Imaging Referral ID Status Reason Start Date Expiration Date V isits Requested Visits Authorized [id number] Closed Auto-Generate d Referral 12/01/2022 12/31/2023 1 1 Health Concerns Infection Onset Date Last Indicated Resolved Time COVID-19 Rule-Out 09/01/2023 09/01/2023 09/01/2023 8:28 PM EST Additional Source Comments Reason for Visit (unrecogniz ed section and content) Reason Onset Date Comments Refill Request 03/04/2022 Reason Comments Acute Visit swollen tonsil on ri ght side started last night Reason Onset Date Comments Refill Request 06/05/2022 Reason Onset Date Comments Refill Request 06/17/2022 Reason Onset Date Comments Refill Request 06/24/2022 Reason Onset Date Comments Refill Request 07/11/2022 Reason Comments Yearly Exam Reason Comments Nasal Congestion cough, headache, sor e throat and ear pain x 4 days Reason Onset Date Comments Refill Request 09/20/2022 Reason Comments Sinus Problem Sinus pain and press ure x 1.5 weeks Reason Comments Pain Left wrist pain on a nd off for some time Reason Comments New Patient Pain Specialty Diagnoses / Procedures Referred By Contgrace t Referred To Contact Orthopedics Diagnoses Chronic wrist pain, left Procedures CONSULT TO ORTHOPAEDICS OFFICE/OUTPATIENT NEW HIGH MDM 60-74 MINUTES Marisabel Robles, CAR FERRY CAPTAIN.BAG MACHINE TENDER [address] [place] [address] Referral ID Status Reason Start Date Expiration Date V isits Requested Visits Authorized [id number] Closed PCP Requested Referral 12/01/2022 12/01/2023 1 1 Reason Onset Date Comments Refill Request 12/18/2022 Reason Onset Date Comments Refill Request 01/12/2023 Reason Comments Head Congestion Sinus drainage, ST, CARTER x1.5 weeks Reason Onset Date Comments Refill Request 04/30/2023 Reason Onset Date Comments Refill Request 08/02/2023 Reason Comments Sinus Problem Drainage, bilateral ear pain, CARTER x 2 weeks Reason Comments Flu Like Symptoms Nausea, diarrhea, ch ills, ears ache, CARTER, fatigue x 2 days INFORMATION SOURCE (unrecogn ized section and content) DATE CREATED AUTHOR AUTHOR'S ORGANIZ ATION 10/19/2023 [facility] Source Comments (unrecognize d section and content) In the event this informatio n is protected by the Federal Confidentiality of Alcohol and Drug Abuse Patient Records regulations: The Federal rules restrict any use of the information to criminally investigate or prosecute any alcohol or drug abuse patient.[facility] the event this information is protected by the Federal Confidentiality of Alcohol and Drug Abuse Patient Records regulations: The Federal rules restrict any use of the information to criminally investigate or prosecute any alcohol or drug abuse patient.[facility] CenterIn the event this information is protected by the Federal Confidentiality of Alcohol and Drug Abuse Patient Records regulations: The Federal rules restrict any use of the information to criminally investigate or prosecute any alcohol or drug abuse patient.[facility] CenterIn the event this information is protected by the Federal Confidentiality of Alcohol and Drug Abuse Patient Records regulations: The Federal rules restrict any use of the information to criminally investigate or prosecute any alcohol or drug abuse patient.[facility] CenterIn the event this information is protected by the Federal Confidentiality of Alcohol and Drug Abuse Patient Records regulations: The Federal rules restrict any use of the information to criminally investigate or prosecute any alcohol or drug abuse patient.[facility] CenterIn the event this information is protected by the Federal Confidentiality of Alcohol and Drug Abuse Patient Records regulations: The Federal rules restrict any use of the information to criminally investigate or prosecute any alcohol or drug abuse patient.[facility] CenterIn the event this information is protected by the Federal Confidentiality of Alcohol and Drug Abuse Patient Records regulations: The Federal rules restrict any use of the information to criminally investigate or prosecute any alcohol or drug abuse patient.[facility] CenterIn the event this information is protected by the Federal Confidentiality of Alcohol and Drug Abuse Patient Records regulations: The Federal rules restrict any use of the information to criminally investigate or prosecute any alcohol or drug abuse patient.[facility] CenterIn the event this information is protected by the Federal Confidentiality of Alcohol and Drug Abuse Patient Records regulations: The Federal rules restrict any use of the information to criminally investigate or prosecute any alcohol or drug abuse patient.[facility] CenterIn the event this information is protected by the Federal Confidentiality of Alcohol and Drug Abuse Patient Records regulations: The Federal rules restrict any use of the information to criminally investigate or prosecute any alcohol or drug abuse patient.[facility] CenterIn the event this information is protected by the Federal Confidentiality of Alcohol and Drug Abuse Patient Records regulations: The Federal rules restrict any use of the information to criminally investigate or prosecute any alcohol or drug abuse patient.[facility] CenterIn the event this information is protected by the Federal Confidentiality of Alcohol and Drug Abuse Patient Records regulations: The Federal rules restrict any use of the information to criminally investigate or prosecute any alcohol or drug abuse patient.[facility] CenterIn the event this information is protected by the Federal Confidentiality of Alcohol and Drug Abuse Patient Records regulations: The Federal rules restrict any use of the information to criminally investigate or prosecute any alcohol or drug abuse patient.[facility] CenterIn the event this information is protected by the Federal Confidentiality of Alcohol and Drug Abuse Patient Records regulations: The Federal rules restrict any use of the information to criminally investigate or prosecute any alcohol or drug abuse patient.[facility] CenterIn the event this information is protected by the Federal Confidentiality of Alcohol and Drug Abuse Patient Records regulations: The Federal rules restrict any use of the information to criminally investigate or prosecute any alcohol or drug abuse patient.[facility] CenterIn the event this information is protected by the Federal Confidentiality of Alcohol and Drug Abuse Patient Records regulations: The Federal rules restrict any use of the information to criminally investigate or prosecute any alcohol or drug abuse patient.[facility] CenterIn the event this information is protected by the Federal Confidentiality of Alcohol and Drug Abuse Patient Records regulations: The Federal rules restrict any use of the information to criminally investigate or prosecute any alcohol or drug abuse patient.[facility] CenterIn the event this information is protected by the Federal Confidentiality of Alcohol and Drug Abuse Patient Records regulations: The Federal rules restrict any use of the information to criminally investigate or prosecute any alcohol or drug abuse patient.[facility] CenterIn the event this information is protected by the Federal Confidentiality of Alcohol and Drug Abuse Patient Records regulations: The Federal rules restrict any use of the information to criminally investigate or prosecute any alcohol or drug abuse patient.[facility] CenterIn the event this information is protected by the Federal Confidentiality of Alcohol and Drug Abuse Patient Records regulations: The Federal rules restrict any use of the information to criminally investigate or prosecute any alcohol or drug abuse patient.[facility] CenterIn the event this information is protected by the Federal Confidentiality of Alcohol and Drug Abuse Patient Records regulations: The Federal rules restrict any use of the information to criminally investigate or prosecute any alcohol or drug abuse patient.[facility] CenterIn the event this information is protected by the Federal Confidentiality of Alcohol and Drug Abuse Patient Records regulations: The Federal rules restrict any use of the information to criminally investigate or prosecute any alcohol or drug abuse patient.[facility] CenterIn the event this information is protected by the Federal Confidentiality of Alcohol and Drug Abuse Patient Records regulations: The Federal rules restrict any use of the information to criminally investigate or prosecute any alcohol or drug abuse patient.[facility] CenterIn the event this information is protected by the Federal Confidentiality of Alcohol and Drug Abuse Patient Records regulations: The Federal rules restrict any use of the information to criminally investigate or prosecute any alcohol or drug abuse patient.[facility] CenterIn the event this information is protected by the Federal Confidentiality of Alcohol and Drug Abuse Patient Records regulations: The Federal rules restrict any use of the information to criminally investigate or prosecute any alcohol or drug abuse patient.[facility] CenterIn the event this information is protected by the Federal Confidentiality of Alcohol and Drug Abuse Patient Records regulations: The Federal rules restrict any use of the information to criminally investigate or prosecute any alcohol or drug abuse patient.[facility] CenterIn the event this information is protected by the Federal Confidentiality of Alcohol and Drug Abuse Patient Records regulations: The Federal rules restrict any use of the information to criminally investigate or prosecute any alcohol or drug abuse patient.[facility] Care Teams (unrecognized sec tion and content) Battery Container Tester Aluminum Relationship Specialty Start Date End Date Aidan Lr MD [address] [place] [address] PCP - General 07/29/02 Battery Container Tester Aluminum Relationship Specialty Start Date End Date Aidan Lr MD [address] [place] [address] PCP - General 07/29/02 Battery Container Tester Aluminum Relationship Specialty Start Date End Date Aidan Lr MD [address] [place] [address], [place] [address] PCP - General 07/29/02 Battery Container Tester Aluminum Relationship Specialty Start Date End Date Aidan Lr MD [address] [place] [address], [place] [address] PCP - General 07/29/02 Battery Container Tester Aluminum Relationship Specialty Start Date End Date Aidan Lr MD [address] [place] [address], [place] [address] PCP - General 07/29/02 Battery Container Tester Aluminum Relationship Specialty Start Date End Date Aidan Lr MD [address] [place] [address], [place] [address] PCP - General 07/29/02 Battery Container Tester Aluminum Relationship Specialty Start Date End Date Aidan rL MD [address] [place] [address], [place] [address] PCP - General 07/29/02 Battery Container Tester Aluminum Relationship Specialty Start Date End Date Aidan Lr MD [address] [place] [address], [place] [address] PCP - General 07/29/02 Battery Container Tester Aluminum Relationship Specialty Start Date End Date Aidan Lr MD [address] [place] [address], [place] [address] PCP - General 07/29/02 Battery Container Tester Aluminum Relationship Specialty Start Date End Date Aidan Lr MD [address] [place] [address], [place] [address] PCP - General 07/29/02 Battery Container Tester Aluminum Relationship Specialty Start Date End Date Aidan Lr MD [address] [place] [address], [place] [address] PCP - General 07/29/02 Battery Container Tester Aluminum Relationship Specialty Start Date End Date Aidan Lr MD [address] [place] [address] PCP - General 07/29/02 Battery Container Tester Aluminum Relationship Specialty Start Date End Date Aidan Lr MD [address] [place] [address] PCP - General 07/29/02 Battery Container Tester Aluminum Relationship Specialty Start Date End Date Aidan Lr MD [address] [place] [address] PCP - General 07/29/02 Battery Container Tester Aluminum Relationship Specialty Start Date End Date Aidan Lr MD [address] [place] [address] PCP - General 07/29/02 Battery Container Tester Aluminum Relationship Specialty Start Date End Date Aidan Lr MD [address] [place] [address] PCP - General 07/29/02 Battery Container Tester Aluminum Relationship Specialty Start Date End Date Aidan Lr MD [address] [place] [address] PCP - General 07/29/02 Battery Container Tester Aluminum Relationship Specialty Start Date End Date Aidan Lr MD [address] [place] [address] PCP - General 07/29/02 Battery Container Tester Aluminum Relationship Specialty Start Date End Date Aidan Lr MD [address] [place] [address] PCP - General 07/29/02 Battery Container Tester Aluminum Relationship Specialty Start Date End Date Aidan Lr MD [address] [place] [address] PCP - General 07/29/02 FOR RECORDS PERTAINING TO PATIENTS WHO ARE OR HAVE BEEN ENROLLED IN A CHEMICAL DEPENDENCY/SUBSTANCEABUSE PROGRAM, SOME INFORMATION MAY BE OMITTED. This clinical summary was aggregated from multiple sources. Caution should be exercised in using it in the provision of clinical care. This summary normalizes information from multiple sources, and as a consequence, information in this document may materially change the coding, format and clinical context of patient data. In addition, data may be omitted in some cases. CLINICAL DECISIONS SHOULD BE BASED ON THE PRIMARY CLINICAL RECORDS. [facility] [employer] [facility]. provides no warranty or guarantee of the accuracy or completeness of information in this document.
== END | disposition home or self-care (01) ==
LOC: OPBI 10:41
PROVIDERS: PCP Internal Medicine; Referring Provider Internal Medicine; Visit Provider Internal Medicine
DX: Z12.31 Encounter for screening mammogram for malignant neoplasm of breast (principal)
CPT/HCPCS: 77063; 77067

== ENCOUNTER → 2023-12-17 | Outpatient (CLI) | payer BC, SELFPAY | END | disposition home or self-care (01) | PROVIDERS: PCP Internal Medicine; Referring Provider Otolaryngology Otolaryngology/Facial Plastic Surgery; Visit Provider Otolaryngology Otolaryngology/Facial Plastic Surgery | DX: J32.9 Chronic sinusitis, unspecified (principal) | CPT/HCPCS: 87070; 87205 ==

== ENCOUNTER → 2024-10-31 | Outpatient (CLI) | payer OTHER, SELFPAY ==
--- NOTE | 2024-10-31 11:52 | BI_ITS ---
MAMMOGRAPHY - BILATERAL SCREENING REASON FOR EXAM: Female, 59 years old. Routine annual screening examination. PERTINENT HISTORY: Non-contributory. Prior left stereotactic breast biopsy and left excisional biopsy. TECHNIQUE: Digital bilateral breast nathanael (3D mammographic acquisition) in the CC and MLO projections. 2-D mediolateral oblique (MLO) and craniocaudad (CC) views of both breasts were obtained. CAD: Full Field Digital Mammography with Computer Added Detection was performed. COMPARISON: Comparison is made with prior study dated April 28, 2024 and August 29, 2022. FINDINGS: Breast Composition: The breasts are heterogeneously dense, which may obscure small masses. There are no dominant masses or suspicious calcifications. No other significant abnormalities are identified. There has been no significant change since the prior study. BI/SCRN MAMM (CAD)W/NATHANAEL BILAT IMPRESSION: Stable bilateral screening mammogram. Yearly follow-up mammogram recommended. (A) ASSESSMENT CATEGORY: BIRADS Category 1: Negative. A letter regarding these results will be sent to the patient by the facility within 30 days. Approximately 10% of breast cancers are not detected by mammography. A normal mammogram should not delay biopsy of a clinically suspicious abnormality. [id number] Electronically Signed: Taye Umana MD at 12:52 EST ,
== END | disposition home or self-care (01) ==
PROVIDERS: PCP Internal Medicine; Referring Provider Nurse Practitioner Women's Health; Visit Provider Nurse Practitioner Women's Health
DX: Z12.31 Encounter for screening mammogram for malignant neoplasm of breast (principal)
CPT/HCPCS: 77063; 77067